=== PATIENT | female | born 1945 | race Caucasian/White ===

== ENCOUNTER → 2017-08-31 16:52 | Outpatient (REF) | payer MEDICARE, SELFPAY | LOC: LAB 16:52 | PROVIDERS: Visit Provider Nurse Practitioner Family | DX: N39.0 Urinary tract infection, site not specified (principal); R35.0 Frequency of micturition | CPT/HCPCS: 87086; 87088; 87186 ==

== ENCOUNTER → 2018-03-25 08:33 | Outpatient (REF) | payer MEDICARE, SELFPAY ==
[2018-03-25 14:30] LABS: Alanine Aminotransferase 46 U/L (12-78); Albumin Level 4.1 gm/dL (3.4-5.0); Albumin/Globulin Ratio 1.4 (1.1-1.8); Alkaline Phosphatase 96 U/L (46-116); Anion Gap 18.7 mEq/L (5-15); Aspartate Amino Transferase 31 U/L (15-37); Bilirubin,Total 0.8 mg/dL (0.2-1.0); Blood Urea Nitrogen 17 mg/dL (7-18); Carbon Dioxide 24 mmol/L (21.0-32.0); Chloride 102 mmol/L (98-107); Creatinine,Serum 1.15 mg/dL (0.55-1.02); Estimated Glomerular Filt Rate 46 ml/min (>60); GFR (African American) 56 ML/MIN (>60); Globulin 2.9 gm/dl (1.3-3.2); Glucose 219 mg/dL (74-106); Potassium 4.7 mmoL/L (3.5-5.1); Sodium 140 mmol/L (136-145)
[2018-03-25 14:41] LABS: Cholesterol 186 mg/dL (140-200); HDL Cholesterol 47 mg/dL (29-89); LDL Cholesterol 101 mg/dL (0-130); Thyroid Stimulating Hormone 14.58 uIU/ml (0.358-3.740); Triglycerides 192 mg/dL (30-200); VLDL Cholesterol 38 mg/dL (0-40)
== END ==
LOC: LAB 08:33
PROVIDERS: Visit Provider Nurse Practitioner Family
DX: E11.9 Type 2 diabetes mellitus without complications (principal); E07.9 Disorder of thyroid, unspecified; E03.9 Hypothyroidism, unspecified; R30.0 Dysuria
CPT/HCPCS: 80053; 80061; 83036; 84443

== ENCOUNTER → 2018-06-08 13:16 | Outpatient (CLI) | payer MEDICARE, SELFPAY | PROVIDERS: PCP Nurse Practitioner Family; Visit Provider Nurse Practitioner Family | DX: R30.0 Dysuria (principal) | CPT/HCPCS: 87086; 87088; 87186 ==

== ENCOUNTER → 2018-10-21 13:36 | Outpatient (CLI) | payer MEDICARE, SELFPAY ==
[2018-10-21 13:50] LABS: Basophils # 0.1 K/mm3 (0-0.2); Eosinophils # 0.1 K/mm3 (0.0-0.4); Eosinophils % 1.5 % (0.1-12.0); Hematocrit 41.7 % (37.0-47.0); Hemoglobin 14.4 g/dL (12.2-16.2); Lymphocytes # 1.6 K/mm3 (0.7-4.5); Lymphocytes % 23.8 % (10-50); Mean Corpuscular HGB Conc 34.4 g/dL (31.8-35.4); Mean Corpuscular Volume 98.8 fl (81-99); Mean Platelet Volume 9.9 fl (7.4-10.4); Monocytes # 0.4 K/mm3 (0.1-1.0); Neutrophils # 4.6 K/mm3 (1.8-7.8); Neutrophils % 67.7 % (37.0-80.0); Platelet Count 323 K/mm3 (142-424); Red Blood Count 4.22 M/mm3 (4.20-5.40); Red Cell Distribution Width 13.4 % (11.5-17.5); White Blood Count 6.8 K/mm3 (4.8-10.8)
[2018-10-21 14:20] LABS: Alanine Aminotransferase 35 U/L (12-78); Albumin Level 3.7 gm/dL (3.4-5.0); Albumin/Globulin Ratio 1.1 (1.1-1.8); Alkaline Phosphatase 110 U/L (46-116); Anion Gap 15.8 mEq/L (5-15); Aspartate Amino Transferase 29 U/L (15-37); Bilirubin,Total 0.9 mg/dL (0.2-1.0); Blood Urea Nitrogen 18 mg/dL (7-18); Calcium 9.5 mg/dL (8.5-10.1); Carbon Dioxide 27 mmol/L (21.0-32.0); Chloride 102 mmol/L (98-107); Chol/HDL Ratio 2.9 (1-3.5); Cholesterol 123 mg/dL (140-200); Creatinine,Serum 0.92 mg/dL (0.55-1.02); Estimated Glomerular Filt Rate 60 ml/min (>60); GFR (African American) 73 ML/MIN (>60); Globulin 3.3 gm/dl (1.3-3.2); Glucose 180 mg/dL (74-106); HDL Cholesterol 43 mg/dL (29-89); LDL Cholesterol 54 mg/dL (0-130); Potassium 4.8 mmoL/L (3.5-5.1); Sodium 140 mmol/L (136-145); T4 (Thyroxine) 7.6 ug/dl (4.7-13.3); Thyroid Stimulating Hormone 0.18 uIU/ml (0.358-3.740); Triglycerides 129 mg/dL (30-200); VLDL Cholesterol 26 mg/dL (0-40)
[2018-10-21 15:36] LABS: Hemoglobin A1C 8.7 % (0.0-7.0)
[2018-10-23 03:46] LABS: Microalbumin, Urine 35.1 ug/mL (Not Estab.)
== END ==
PROVIDERS: Visit Provider Physician Assistant
DX: E11.9 Type 2 diabetes mellitus without complications (principal); E03.9 Hypothyroidism, unspecified; N39.0 Urinary tract infection, site not specified; Z79.84 Long term (current) use of oral hypoglycemic drugs
CPT/HCPCS: 80053; 80061; 82043; 83036; 84436; 84443; 85025; 87086; 87088; 87186

== ENCOUNTER → 2018-11-12 13:27 | Outpatient (CLI) | payer MEDICARE, SELFPAY | PROVIDERS: Visit Provider Nurse Practitioner Family | DX: N39.0 Urinary tract infection, site not specified (principal) | CPT/HCPCS: 87086; 87088; 87186 ==

== ENCOUNTER → 2018-12-30 15:51 | Outpatient (CLI) | payer MEDICARE, SELFPAY ==
[2018-12-30 17:07] LABS: Alanine Aminotransferase 37 U/L (12-78); Albumin Level 3.8 gm/dL (3.4-5.0); Albumin/Globulin Ratio 1.3 (1.1-1.8); Alkaline Phosphatase 102 U/L (46-116); Anion Gap 14.9 mEq/L (5-15); Aspartate Amino Transferase 21 U/L (15-37); Blood Urea Nitrogen 13 mg/dL (7-18); Calcium 9.2 mg/dL (8.5-10.1); Carbon Dioxide 27 mmol/L (21.0-32.0); Chloride 104 mmol/L (98-107); Creatinine,Serum 0.94 mg/dL (0.55-1.02); Estimated Glomerular Filt Rate 59 ml/min (>60); Free T4 (Free Thyroxine) 0.85 ng/dl (0.76-1.46); GFR (African American) 71 ML/MIN (>60); Globulin 2.9 gm/dl (1.3-3.2); Glucose 137 mg/dL (74-106); Potassium 4.9 mmoL/L (3.5-5.1); Sodium 141 mmol/L (136-145); Thyroid Stimulating Hormone 0.31 uIU/ml (0.358-3.740); Total Protein,Serum 6.7 gm/dL (6.4-8.2)
== END ==
PROVIDERS: Visit Provider Physician Assistant
DX: E03.9 Hypothyroidism, unspecified (principal); E11.65 Type 2 diabetes mellitus with hyperglycemia; Z79.84 Long term (current) use of oral hypoglycemic drugs
CPT/HCPCS: 80053; 83036; 84439; 84443

== ENCOUNTER → 2019-01-25 10:29 | Outpatient (CLI) | payer MEDICARE, BC, SELFPAY ==
--- NOTE | 2019-01-25 10:32 | CI_ITS ---
Cerebrovascular Exam Indications: 785.9 Bruit. IMPRESSIONS 1. The right vertebral artery is patent with normal antegrade flow. 2. Study suggests 20-49% stenosis involving the right internal carotid artery. 3. Study suggests 70-99% stenosis involving the right external carotid artery. 4. Study suggests 20-49% stenosis involving the left internal carotid artery. 5. Depressed left vertebral waveform. History: A bruit of the left carotid artery. A bruit of the right carotid artery. Risk factors: Hypertension. Diabetes mellitus. 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 She states they "went in and surgical removed it." There is a scar present on the right side of her neck. Carotid duplex study. Complete study and Doppler flow study including spectral analysis, color and berumen scale imaging. Location: Vascular laboratory. Patient status: Outpatient. Tables: Arterial flow: + +--------+--------+ Location V sys V ed + +--------+--------+ Right CCA - proximal 74.4cm/s 10.5cm/s + +--------+--------+ Right CCA - distal 66.7cm/s 13.2cm/s + +--------+--------+ Right ECA 360cm/s -------- + +--------+--------+ Right ICA - proximal 87.7cm/s 24.3cm/s + +--------+--------+ Right ICA - mid 83.8cm/s 19.3cm/s + +--------+--------+ Right ICA - distal 68.9cm/s 18.7cm/s + +--------+--------+ Right vertebral 76.7cm/s -------- + +--------+--------+ Left CCA - proximal 81.1cm/s 14.9cm/s + +--------+--------+ Left CCA - distal 95.9cm/s 13.8cm/s + +--------+--------+ Left ECA 155cm/s -------- + +--------+--------+ Left ICA - proximal 106cm/s 25.3cm/s + +--------+--------+ Left ICA - mid 90.8cm/s 25.3cm/s + +--------+--------+ Left ICA - distal 98.2cm/s 26.7cm/s + +--------+--------+ Left vertebral 32.9cm/s -------- + +--------+--------+ Velocity ratios: + + + + + + Right, V sys Right, V ed Left, V sys Left, V ed + + + + + + Max ICA/dist CCA 1.31 1.84 1.11 1.93 + + + + + + (Report amended ) Electronically signed by: Tony Cantor [id number]
== END ==
PROVIDERS: PCP Emergency Medicine; Visit Provider Emergency Medicine
DX: R09.89 Other specified symptoms and signs involving the circulatory and respiratory systems (principal)
CPT/HCPCS: 93880

== ENCOUNTER → 2019-06-16 13:21 | Outpatient (CLI) | payer MEDICARE, BC, SELFPAY ==
[2019-06-16 13:33] LABS: Basophils # 0.1 K/mm3 (0-0.2); Basophils % 1.1 % (0.1-2.0); Eosinophils # 0.1 K/mm3 (0.0-0.4); Eosinophils % 1.3 % (0.1-12.0); Hematocrit 42.1 % (37.0-47.0); Hemoglobin 14.4 g/dL (12.2-16.2); Lymphocytes # 1.6 K/mm3 (0.7-4.5); Lymphocytes % 26.8 % (10-50); Mean Corpuscular HGB Conc 34.2 g/dL (31.8-35.4); Mean Corpuscular Volume 99.3 fl (81-99); Monocytes # 0.4 K/mm3 (0.1-1.0); Monocytes % 5.9 % (1.7-9.3); Platelet Count 329 K/mm3 (142-424); Red Blood Count 4.25 M/mm3 (4.20-5.40); Red Cell Distribution Width 12.4 % (11.5-17.5); White Blood Count 6.1 K/mm3 (4.8-10.8)
[2019-06-16 13:49] LABS: Alanine Aminotransferase 47 U/L (12-78); Albumin Level 3.8 gm/dL (3.4-5.0); Albumin/Globulin Ratio 1.4 (1.1-1.8); Alkaline Phosphatase 97 U/L (46-116); Anion Gap 14.4 mEq/L (5-15); Aspartate Amino Transferase 32 U/L (15-37); Bilirubin,Total 1.1 mg/dL (0.2-1.0); Blood Urea Nitrogen 20 mg/dL (7-18); Calcium 9.2 mg/dL (8.5-10.1); Carbon Dioxide 26 mmol/L (21.0-32.0); Chloride 102 mmol/L (98-107); Chol/HDL Ratio 2.8 (1-3.5); Cholesterol 116 mg/dL (140-200); Creatinine,Serum 0.92 mg/dL (0.55-1.02); Estimated Glomerular Filt Rate 60 ml/min (>60); GFR (African American) 72 ML/MIN (>60); Globulin 2.8 gm/dl (1.3-3.2); Glucose 146 mg/dL (74-106); HDL Cholesterol 41 mg/dL (29-89); LDL Cholesterol 48 mg/dL (0-130); Potassium 4.4 mmoL/L (3.5-5.1); Sodium 138 mmol/L (136-145); T4 (Thyroxine) 8.9 ug/dl (4.7-13.3); Thyroid Stimulating Hormone 0.17 uIU/ml (0.358-3.740); Total Protein,Serum 6.6 gm/dL (6.4-8.2); Triglycerides 135 mg/dL (30-200); VLDL Cholesterol 27 mg/dL (0-40)
[2019-06-16 14:23] LABS: Hemoglobin A1C 7.7 % (0.0-7.0)
[2019-06-17 08:31] LABS: Vitamin D 25 Hydroxy 51.8 ng/mL (30.0-100.0)
== END ==
PROVIDERS: Visit Provider Physician Assistant
DX: E11.9 Type 2 diabetes mellitus without complications (principal); N39.0 Urinary tract infection, site not specified; R30.0 Dysuria; Z79.84 Long term (current) use of oral hypoglycemic drugs
CPT/HCPCS: 80053; 80061; 82652; 83036; 84436; 84443; 85025; 87086

== ENCOUNTER → 2019-06-24 13:41 | Outpatient (CLI) | payer MEDICARE, BC, SELFPAY | PROVIDERS: Visit Provider Physician Assistant | DX: R30.0 Dysuria (principal) | CPT/HCPCS: 87086 ==

== ENCOUNTER → 2019-09-07 16:55 | Outpatient (CLI) | payer MEDICARE, BC, SELFPAY | PROVIDERS: Visit Provider Physician Assistant | DX: R30.0 Dysuria (principal) | CPT/HCPCS: 87086 ==

== ENCOUNTER → 2020-05-07 13:36 | Outpatient (CLI) | payer MEDICARE, BC, SELFPAY ==
[2020-05-07 13:57] LABS: Basophils # 0.1 K/mm3 (0-0.2); Basophils % 1.5 % (0.1-2.0); Eosinophils # 0.1 K/mm3 (0.0-0.4); Eosinophils % 1.5 % (0.1-12.0); Hematocrit 42.9 % (37.0-47.0); Lymphocytes % 28.8 % (10-50); Mean Corpuscular HGB Conc 32.6 g/dL (31.8-35.4); Mean Corpuscular Hemoglobin 33.2 pg (27.0-31.2); Mean Corpuscular Volume 101.9 fl (81-99); Mean Platelet Volume 9.7 fl (7.4-10.4); Monocytes # 0.4 K/mm3 (0.1-1.0); Monocytes % 6.1 % (1.7-9.3); Neutrophils # 4.4 K/mm3 (1.8-7.8); Neutrophils % 62.2 % (37.0-80.0); Platelet Count 325 K/mm3 (142-424); Red Blood Count 4.21 M/mm3 (4.20-5.40); Red Cell Distribution Width 12.7 % (11.5-17.5)
[2020-05-07 14:12] LABS: Microalbumin < 6.000 mg/L (0-16.7)
[2020-05-07 14:23] LABS: Chloride 100 mmol/L (98-107); Potassium 4.8 mmoL/L (3.5-5.1); Sodium 137 mmol/L (136-145)
[2020-05-07 14:25] LABS: Blood Urea Nitrogen 17 mg/dl (7-17); Estimated Glomerular Filt Rate 54 ml/min (>60); GFR (African American) 66 ML/MIN (>60)
[2020-05-07 14:26] LABS: Alanine Aminotransferase 25 U/L (12-78); Albumin Level 3.8 g/dl (3.5-5.0); Albumin/Globulin Ratio 1.5 (1.1-1.8); Alkaline Phosphatase 75 U/L (38-126); Anion Gap 12.8 mEq/L (5-15); Aspartate Amino Transferase 33 U/L (14-36); Bilirubin,Total 1.1 mg/dl (0.2-1.3); Calcium 9.6 mg/dl (8.4-10.2); Carbon Dioxide 29 mmol/L (22.0-30.0); Chol/HDL Ratio 2.6 (1-3.5); Cholesterol 119 mg/dl (140-200); Globulin 2.6 g/dL (1.3-3.2); Glucose 138 mg/dl (74-100); HDL Cholesterol 46 mg/dl (40-60); Total Protein,Serum 6.4 g/dl (6.3-8.2); Triglycerides 102 mg/dl (30-150); VLDL Cholesterol 20 mg/dL (0-40)
[2020-05-07 14:38] LABS: Direct LDL Cholesterol 61.75 mg/dL (100-129)
[2020-05-07 14:45] LABS: 25-OH Vitamin D, Total 63.9 ng/mL (30-100)
[2020-05-07 14:48] LABS: Hemoglobin A1C 7.6 % (4.0-6.0)
[2020-05-07 14:50] LABS: Thyroid Stimulating Hormone 0.94 uIU/mL (0.465-4.68)
== END ==
PROVIDERS: Visit Provider Physician Assistant
DX: E03.9 Hypothyroidism, unspecified (principal); E11.9 Type 2 diabetes mellitus without complications; N39.0 Urinary tract infection, site not specified; E55.9 Vitamin D deficiency, unspecified
CPT/HCPCS: 80053; 80061; 82043; 82306; 83036; 84436; 84443; 85025; 87086; 87088; 87186

== ENCOUNTER → 2020-09-04 14:34 | Outpatient (CLI) | payer MEDICARE, BC, SELFPAY | PROVIDERS: Visit Provider Physician Assistant | DX: R30.0 Dysuria (principal) | CPT/HCPCS: 87086; 87088; 87186 ==

== ENCOUNTER → 2020-12-31 13:37 | Outpatient (CLI) | payer MEDICARE, BC, SELFPAY ==
[2020-12-31 13:51] LABS: Basophils # 0.1 K/mm3 (0-0.2); Basophils % 1.2 % (0.1-2.0); Eosinophils # 0.1 K/mm3 (0.0-0.4); Eosinophils % 1.7 % (0.1-12.0); Hematocrit 40.7 % (37.0-47.0); Lymphocytes # 1.8 K/mm3 (0.7-4.5); Lymphocytes % 25.7 % (10-50); Mean Corpuscular HGB Conc 34.2 g/dL (31.8-35.4); Mean Corpuscular Hemoglobin 34.1 pg (27.0-31.2); Mean Corpuscular Volume 99.5 fl (81-99); Monocytes # 0.5 K/mm3 (0.1-1.0); Monocytes % 6.5 % (1.7-9.3); Neutrophils # 4.6 K/mm3 (1.8-7.8); Neutrophils % 64.8 % (37.0-80.0); Platelet Count 330 K/mm3 (142-424); Red Cell Distribution Width 13.4 % (11.5-17.5)
[2020-12-31 13:55] LABS: Alanine Aminotransferase 29 U/L (12-78); Albumin Level 4.2 g/dl (3.5-5.0); Albumin/Globulin Ratio 1.8 (1.1-1.8); Alkaline Phosphatase 78 U/L (38-126); Anion Gap 10.7 mEq/L (5-15); Aspartate Amino Transferase 34 U/L (14-36); Blood Urea Nitrogen 24 mg/dl (7-17); Calcium 8.9 mg/dl (8.4-10.2); Carbon Dioxide 27 mmol/L (22.0-30.0); Chloride 104 mmol/L (98-107); Chol/HDL Ratio 3.3 (1-3.5); Cholesterol 137 mg/dl (140-200); Estimated Glomerular Filt Rate 54 ml/min (>60); GFR (African American) 66 ML/MIN (>60); Globulin 2.4 g/dL (1.3-3.2); Glucose 171 mg/dl (74-100); HDL Cholesterol 42 mg/dl (40-60); Potassium 4.7 mmoL/L (3.5-5.1); Sodium 137 mmol/L (136-145); Total Protein,Serum 6.6 g/dl (6.3-8.2); Triglycerides 152 mg/dl (30-150); VLDL Cholesterol 30 mg/dL (0-40)
[2020-12-31 14:06] LABS: Direct LDL Cholesterol 65.35 mg/dL (100-129)
[2020-12-31 14:08] LABS: 25-OH Vitamin D, Total 50.6 ng/mL (30-100)
[2020-12-31 14:10] LABS: T4 (Thyroxine) 5.7 ug/dl (5.53-11.0)
[2020-12-31 14:15] LABS: Hemoglobin A1C 8.2 % (4.0-6.0)
[2020-12-31 14:24] LABS: Thyroid Stimulating Hormone 4.94 uIU/mL (0.465-4.68)
[2020-12-31 14:42] LABS: Vitamin B12 628 pg/mL (239-931)
[2020-12-31 15:45] LABS: Creatinine,Urine Random 130 mg/dL (Not Estab.); Microalbumin/Creatinine Ratio 4.7
== END ==
PROVIDERS: Visit Provider Physician Assistant
DX: E03.9 Hypothyroidism, unspecified (principal); E11.9 Type 2 diabetes mellitus without complications; E55.9 Vitamin D deficiency, unspecified; R53.83 Other fatigue; R30.0 Dysuria; Z79.84 Long term (current) use of oral hypoglycemic drugs
CPT/HCPCS: 80053; 80061; 82043; 82306; 82570; 82607; 83036; 84436; 84443; 85025

== ENCOUNTER → 2021-09-04 17:43 | Outpatient (CLI) | payer MEDICARE, BC, SELFPAY | PROVIDERS: Visit Provider Physician Assistant | DX: N39.0 Urinary tract infection, site not specified (principal) | CPT/HCPCS: 87086 ==

== ENCOUNTER → 2021-10-23 15:42 | Outpatient (CLI) | payer MEDICARE, BC, SELFPAY ==
[2021-10-23 14:18] LABS: Basophils # 0.1 K/mm3 (0-0.2); Basophils % 1.4 % (0.1-2.0); Eosinophils # 0.1 K/mm3 (0.0-0.4); Hematocrit 43.3 % (37.0-47.0); Hemoglobin 14.3 g/dL (12.2-16.2); Lymphocytes # 1.5 K/mm3 (0.7-4.5); Lymphocytes % 26.4 % (10-50); Mean Corpuscular Hemoglobin 33.6 pg (27.0-31.2); Mean Corpuscular Volume 101.7 fl (81-99); Mean Platelet Volume 10.6 fl (7.4-10.4); Monocytes # 0.3 K/mm3 (0.1-1.0); Monocytes % 6.1 % (1.7-9.3); Neutrophils # 3.6 K/mm3 (1.8-7.8); Neutrophils % 64.1 % (37.0-80.0); Platelet Count 344 K/mm3 (142-424); Red Blood Count 4.26 M/mm3 (4.20-5.40); Red Cell Distribution Width 12.8 % (11.5-17.5); White Blood Count 5.6 K/mm3 (4.8-10.8)
[2021-10-23 15:03] LABS: Chloride 105 mmol/L (98-107)
[2021-10-23 15:04] LABS: Potassium 4.7 mmoL/L (3.5-5.1); Sodium 139 mmol/L (136-145)
[2021-10-23 15:06] LABS: Alanine Aminotransferase 30 U/L (12-78); Aspartate Amino Transferase 31 U/L (14-36); Blood Urea Nitrogen 19 mg/dl (7-17); Estimated Glomerular Filt Rate 54 ml/min (>60); GFR (African American) 65 ML/MIN (>60)
[2021-10-23 15:07] LABS: Albumin Level 4.1 g/dl (3.5-5.0); Albumin/Globulin Ratio 1.8 (1.1-1.8); Alkaline Phosphatase 84 U/L (38-126); Anion Gap 12.7 mEq/L (5-15); Bilirubin,Total 0.8 mg/dl (0.2-1.3); Calcium 8.1 mg/dl (8.4-10.2); Carbon Dioxide 26 mmol/L (22.0-30.0); Globulin 2.3 g/dL (1.3-3.2); Glucose 174 mg/dl (74-100); Total Protein,Serum 6.4 g/dl (6.3-8.2)
[2021-10-23 15:38] LABS: Thyroid Stimulating Hormone < 0.02 uIU/mL (0.465-4.68)
[2021-10-23 18:51] LABS: Hemoglobin A1C 9.7 % (4.0-6.0)
[2021-10-24 11:51] LABS: Intact Parathyroid Hormone 132.3 pg/mL (7.5-53.5)
== END ==
PROVIDERS: Visit Provider Physician Assistant
DX: E11.9 Type 2 diabetes mellitus without complications (principal); R53.1 Weakness; E55.9 Vitamin D deficiency, unspecified; Z00.00 Encounter for general adult medical examination without abnormal findings; N39.0 Urinary tract infection, site not specified; R79.89 Other specified abnormal findings of blood chemistry; Z79.4 Long term (current) use of insulin
CPT/HCPCS: 80053; 82306; 83036; 83970; 84443; 85025; 87086

== ENCOUNTER → 2021-11-06 08:44 | Outpatient (CLI) | payer MEDICARE, BC, SELFPAY ==
--- NOTE | 2021-11-06 08:49 | XR_ITS ---
FINAL REPORT TECHNIQUE: Bone mineral density was calculated of the lumbar spine and hip. CLINICAL HISTORY: post menopausal FINDINGS: Using L1-4, the bone mineral density of the spine is 1.075 g/cm2, corresponding to T-score of 0.3. Using the left hip, the bone mineral density of the femoral neck is 0.611 g/cm2, corresponding to a T-score of -2.1. NOTE: T-score: Standard deviation compared with peak bone mass of young adult mean. *Following the recommendations of the International Society of Bone densitometry, classification of hip BMD is based on the lower of two T-scores; total hip or femoral neck. IMPRESSION: Diminished bone mineral density of the left hip consistent with osteopenia. FRAX 10 year fracture risk is 14% for major osteoporotic fracture. Normal bone mineral density of the lumbar spine. Reviewed, Interpreted and Dictated by Jose Nogueira III, MD Transcribed by Briana Sandhu Authenticated by Jose Nogueira III, MD on 11/06/2021 10:45:14 AM [facility]
== END ==
PROVIDERS: PCP Physician Assistant; Visit Provider Physician Assistant
DX: Z78.0 Asymptomatic menopausal state (principal)
CPT/HCPCS: 77080

== ENCOUNTER → 2021-12-26 09:56 | Outpatient (CLI) | payer MEDICARE, BC, SELFPAY ==
--- NOTE | 2021-12-26 10:02 | XR_ITS ---
FINAL REPORT CLINICAL HISTORY: left elbow pain FINDINGS: LEFT ELBOW 3 views were obtained. There is no acute fracture or dislocation. There is no joint effusion. There are mild degenerative changes. There are chronic calcifications adjacent to the medial and lateral humeral epicondyles. IMPRESSION: Mild degenerative change. Reviewed, Interpreted and Dictated by Jose Nogueira III, MD Transcribed by Yaron Do Authenticated by Jose Nogueira III, MD on 12/26/2021 10:58:[address] [facility]
--- NOTE | 2021-12-26 10:02 | XR_ITS ---
FINAL REPORT CLINICAL HISTORY: right forearm pain FINDINGS: RIGHT FOREARM Two views were obtained. There is a chronic fracture of the ulnar styloid process. There is no acute fracture or dislocation. There are mild degenerative changes of the wrist and elbow. There are chronic calcifications adjacent to the medial and lateral humeral epicondyles. IMPRESSION: Mild degenerative change. Reviewed, Interpreted and Dictated by Jose Nogueira III, MD Transcribed by Yaron Do Authenticated by Jose Nogueira III, MD on 12/26/2021 10:58:32 AM [facility]
--- NOTE | 2021-12-26 10:02 | XR_ITS ---
FINAL REPORT CLINICAL HISTORY: left forearm pain FINDINGS: LEFT FOREARM Two views were obtained. There is no acute fracture or dislocation. There are mild degenerative changes of the wrist and elbow. There are chronic calcifications adjacent to the medial and lateral humeral epicondyles. IMPRESSION: Mild degenerative change. Reviewed, Interpreted and Dictated by Jose Nogueira III, MD Transcribed by Yaron Do Authenticated by Jose Nogueira III, MD on 12/26/2021 10:58:[address] [facility]
--- NOTE | 2021-12-26 10:02 | XR_ITS ---
FINAL REPORT CLINICAL HISTORY: right elbow pain FINDINGS: RIGHT ELBOW 3 views were obtained. There is no acute fracture or dislocation. There is no joint effusion. There are mild degenerative changes. There are chronic calcifications adjacent to the medial and lateral humeral epicondyles. IMPRESSION: Mild degenerative change. Reviewed, Interpreted and Dictated by Jose Nogueira III, MD Transcribed by Yaron Do Authenticated by Jose Nogueira III, MD on 12/26/2021 10:58:30 AM [facility]
== END ==
PROVIDERS: PCP Physician Assistant; Visit Provider Physician Assistant
DX: M25.521 Pain in right elbow (principal); M25.522 Pain in left elbow; Z91.81 History of falling; M79.631 Pain in right forearm; M79.632 Pain in left forearm
CPT/HCPCS: 73080; 73090

== ENCOUNTER → 2022-02-25 20:51 | Outpatient (CLI) | payer MEDICARE, BC, SELFPAY ==
[2022-02-25 15:50] LABS: Basophils # 0.1 K/mm3 (0-0.2); Basophils % 1.3 % (0.1-2.0); Eosinophils # 0.2 K/mm3 (0.0-0.4); Eosinophils % 2.4 % (0.1-12.0); Hematocrit 38.7 % (37.0-47.0); Hemoglobin 13.3 g/dL (12.2-16.2); Lymphocytes # 1.7 K/mm3 (0.7-4.5); Lymphocytes % 22.5 % (10-50); Mean Corpuscular HGB Conc 34.3 g/dL (31.8-35.4); Mean Corpuscular Volume 99.1 fl (81-99); Mean Platelet Volume 10.3 fl (7.4-10.4); Monocytes # 0.7 K/mm3 (0.1-1.0); Monocytes % 9.4 % (1.7-9.3); Neutrophils # 4.8 K/mm3 (1.8-7.8); Neutrophils % 64.5 % (37.0-80.0); Platelet Count 359 K/mm3 (142-424); Red Cell Distribution Width 13.4 % (11.5-17.5); White Blood Count 7.5 K/mm3 (4.8-10.8)
[2022-02-25 15:56] LABS: Alanine Aminotransferase 21 U/L (12-78); Albumin Level 3.8 g/dl (3.5-5.0); Albumin/Globulin Ratio 1.4 (1.1-1.8); Alkaline Phosphatase 93 U/L (38-126); Anion Gap 10.4 mEq/L (5-15); Aspartate Amino Transferase 31 U/L (14-36); Blood Urea Nitrogen 17 mg/dl (7-17); Calcium 8.8 mg/dl (8.4-10.2); Carbon Dioxide 27 mmol/L (22.0-30.0); Chloride 106 mmol/L (98-107); Chol/HDL Ratio 4.9 (1-3.5); Cholesterol 132 mg/dl (140-200); Estimated Glomerular Filt Rate 61 ml/min (>60); GFR (African American) 74 ML/MIN (>60); Globulin 2.7 g/dL (1.3-3.2); Glucose 150 mg/dl (74-100); HDL Cholesterol 27 mg/dl (40-60); Potassium 4.4 mmoL/L (3.5-5.1); Sodium 139 mmol/L (136-145); Total Protein,Serum 6.5 g/dl (6.3-8.2); Triglycerides 146 mg/dl (30-150); VLDL Cholesterol 29 mg/dL (0-40)
[2022-02-25 16:08] LABS: Direct LDL Cholesterol 75.29 mg/dL (100-129)
[2022-02-25 16:14] LABS: 25-OH Vitamin D, Total 58.7 ng/mL (30-100)
[2022-02-25 16:27] LABS: Thyroid Stimulating Hormone 0.59 uIU/mL (0.465-4.68)
[2022-02-25 16:46] LABS: Vitamin B12 706 pg/mL (239-931)
[2022-02-25 17:03] LABS: Hemoglobin A1C 7.5 % (4.0-6.0)
== END ==
PROVIDERS: PCP Physician Assistant; Visit Provider Physician Assistant
DX: R30.0 Dysuria (principal); M85.80 Other specified disorders of bone density and structure, unspecified site; I10 Essential (primary) hypertension; I25.10 Atherosclerotic heart disease of native coronary artery without angina pectoris; Z00.00 Encounter for general adult medical examination without abnormal findings; E11.9 Type 2 diabetes mellitus without complications; Z79.4 Long term (current) use of insulin
CPT/HCPCS: 80053; 80061; 82306; 82607; 83036; 84443; 85025; 87086

== ENCOUNTER → 2022-05-06 13:12 | Outpatient (CLI) | payer MEDICARE, BC, SELFPAY ==
--- NOTE | 2022-05-06 13:27 | XR_ITS ---
FINAL REPORT CLINICAL HISTORY: left knee pain FINDINGS: Left knee Three views were obtained. There is no acute fracture or dislocation. Minimal degenerative change of the medial compartment. Mild patellofemoral joint disease. There is no acute soft tissue abnormality. IMPRESSION: Degenerative changes. No acute bony abnormality. Reviewed, Interpreted and Dictated by Blank Chakraborty MD Transcribed by Yaron Do Authenticated and [facility]
[2022-05-07 16:16] LABS: Basophils # 0.1 K/mm3 (0-0.2); Basophils % 1.3 % (0.1-2.0); Eosinophils # 0.1 K/mm3 (0.0-0.4); Eosinophils % 2.1 % (0.1-12.0); Hematocrit 45.9 % (37.0-47.0); Hemoglobin 14.9 g/dL (12.2-16.2); Lymphocytes # 1.7 K/mm3 (0.7-4.5); Lymphocytes % 24.6 % (10-50); Mean Corpuscular HGB Conc 32.5 g/dL (31.8-35.4); Mean Corpuscular Hemoglobin 33.2 pg (27.0-31.2); Mean Corpuscular Volume 102.1 fl (81-99); Mean Platelet Volume 10.8 fl (7.4-10.4); Monocytes # 0.5 K/mm3 (0.1-1.0); Monocytes % 7.1 % (1.7-9.3); Neutrophils # 4.4 K/mm3 (1.8-7.8); Platelet Count 465 K/mm3 (142-424); Red Cell Distribution Width 13.1 % (11.5-17.5); White Blood Count 6.8 K/mm3 (4.8-10.8)
[2022-05-07 16:21] LABS: Alanine Aminotransferase 19 U/L (12-78); Albumin Level 3.9 g/dl (3.5-5.0); Albumin/Globulin Ratio 1.6 (1.1-1.8); Alkaline Phosphatase 85 U/L (38-126); Aspartate Amino Transferase 29 U/L (14-36); Bilirubin,Total 0.5 mg/dl (0.2-1.3); Blood Urea Nitrogen 22 mg/dl (7-17); Calcium 7.9 mg/dl (8.4-10.2); Carbon Dioxide 27 mmol/L (22.0-30.0); Chloride 99 mmol/L (98-107); Chol/HDL Ratio 3.7 (1-3.5); Cholesterol 97 mg/dl (140-200); Estimated Glomerular Filt Rate 54 ml/min (>60); GFR (African American) 65 ML/MIN (>60); Globulin 2.4 g/dL (1.3-3.2); Glucose 216 mg/dl (74-100); HDL Cholesterol 26 mg/dl (40-60); Magnesium 1.4 mg/dl (1.6-2.3); Phosphorous 2.4 mg/dl (2.5-4.5); Sodium 137 mmol/L (136-145); Total Protein,Serum 6.3 g/dl (6.3-8.2); Triglycerides 153 mg/dl (30-150); VLDL Cholesterol 31 mg/dL (0-40)
[2022-05-07 16:32] LABS: Direct LDL Cholesterol 47.62 mg/dL (100-129); Intact Parathyroid Hormone 99.4 pg/mL (7.5-53.5)
[2022-05-07 16:38] LABS: 25-OH Vitamin D, Total 65.1 ng/mL (30-100)
[2022-05-07 16:50] LABS: Thyroid Stimulating Hormone 0.95 uIU/mL (0.465-4.68)
== END ==
PROVIDERS: PCP Nurse Practitioner Family; Visit Provider Physician Assistant
DX: E03.9 Hypothyroidism, unspecified (principal); E34.9 Endocrine disorder, unspecified; I10 Essential (primary) hypertension; N39.0 Urinary tract infection, site not specified; M25.562 Pain in left knee; E11.65 Type 2 diabetes mellitus with hyperglycemia; M85.89 Other specified disorders of bone density and structure, multiple sites; B96.1 Klebsiella pneumoniae [K. pneumoniae] as the cause of diseases classified elsewhere
CPT/HCPCS: 73562; 80053; 80061; 82306; 83735; 83970; 84100; 84443; 85025; 87086; 87088; 87186

== ENCOUNTER → 2022-05-07 11:35 | Outpatient (CLI) | payer MEDICARE, BC, SELFPAY | PROVIDERS: PCP Physician Assistant; Visit Provider Physician Assistant | DX: D72.810 Lymphocytopenia (principal) ==

== ENCOUNTER → 2022-05-08 11:33 | Outpatient (CLI) | payer MEDICARE, BC, SELFPAY ==
--- NOTE | 2022-05-08 12:55 | XR_ITS ---
FINAL REPORT TECHNIQUE: 1 view CLINICAL HISTORY: Hyperparathyroidism FINDINGS: ABDOMEN SINGLE VIEW There is a normal bowel gas pattern. No bowel dilation is identified. No abnormal calcification is seen. The patient is status post cholecystectomy. IMPRESSION: No acute process. Reviewed, Interpreted and Dictated by Blank Chakraborty MD Transcribed by Dana Garcia Authenticated and [facility]
--- NOTE | 2022-05-08 12:55 | XR_ITS ---
FINAL REPORT TECHNIQUE: 3 views CLINICAL HISTORY: back pain FINDINGS: There is no fracture present. There is no malalignment. There is mild diffuse degenerative disc disease. Mild diffuse spurring is identified. There is thoracic kyphosis. IMPRESSION: Degenerative changes without acute process. Reviewed, Interpreted and Dictated by Blank Chakraborty MD Transcribed by Dana Garcia Authenticated and [facility]
--- NOTE | 2022-05-08 12:55 | XR_ITS ---
FINAL REPORT TECHNIQUE: 3 views CLINICAL HISTORY: back pain FINDINGS: There is no fracture present. There is no malalignment. There is moderate diffuse degenerative disc disease with endplate spurring. Note is made of facet arthropathy. IMPRESSION: Degenerative changes without acute process. Reviewed, Interpreted and Dictated by Blank Chakraborty MD Transcribed by Dana Garcia Authenticated and [facility]
[2022-05-10 09:05] LABS: Peripheral Smear Review Scanned Result
== END ==
LOC: LAB.DROPOF 11:34 → RAD 12:41
PROVIDERS: PCP Physician Assistant; Visit Provider Physician Assistant
DX: E21.3 Hyperparathyroidism, unspecified (principal); M54.6 Pain in thoracic spine; M54.50 Low back pain, unspecified
CPT/HCPCS: 72072; 72100; 74018

== ENCOUNTER → 2022-05-10 09:11 | Outpatient (CLI) | payer MEDICARE, BC, SELFPAY ==
[2022-05-11 09:09] LABS: Calcium, Urine 0.8 mg/dL (Not Estab.); Calcium, Urine 24hr 8 mg/24 hr (0-320)
[2022-05-12 17:09] LABS: Calcium, Ionized 4.5 mg/dL (4.5-5.6)
== END ==
PROVIDERS: PCP Physician Assistant; Visit Provider Physician Assistant
DX: E03.9 Hypothyroidism, unspecified (principal); E34.9 Endocrine disorder, unspecified; E11.65 Type 2 diabetes mellitus with hyperglycemia
CPT/HCPCS: 36415; 82330; 82340

== ENCOUNTER → 2022-06-20 10:48 | Outpatient (CLI) | payer MEDICARE, BC, SELFPAY ==
--- NOTE | 2022-06-20 10:57 | MR_ITS ---
FINAL REPORT CLINICAL HISTORY: Left knee pain. POPPING IN KNEE. KNEE INSTABILITY. SENT OVER BEST IMAGES. FINDINGS: Multi planar MR imaging was performed of the right knee. The anterior and posterior cruciate ligaments are intact. The quadriceps and patellar tendons are intact. There is linear abnormal signal in the posterior horn of the medial meniscus extending to the margin consistent with a meniscal tear. The lateral meniscus is intact. The medial and lateral collateral ligaments appear intact. The medial and lateral retinacula appear intact. There is mild to moderate marrow edema in the medial tibial plateau. There is grade 1 chondromalacia along the undersurface of the patella. A popliteal cyst measures 6 cm in craniocaudal dimensions. IMPRESSION: Tear of the posterior horn of the medial meniscus. 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 6 cm popliteal cyst. Reviewed, Interpreted and Dictated by Newton Guthrie MD Transcribed by Yaron Do Authenticated and [facility]
== END ==
PROVIDERS: PCP Physician Assistant; Visit Provider Physician Assistant
DX: M25.562 Pain in left knee (principal)
CPT/HCPCS: 73721

== ENCOUNTER 2022-07-18 10:42 | Outpatient (RCR) | payer MEDICARE, BC, SELFPAY | END 2022-07-18 11:30 | disposition home or self-care (01) | LOC: PT 10:42 | PROVIDERS: Visit Provider Orthopaedic Surgery | DX: M25.562 Pain in left knee (principal); S80.912A Unspecified superficial injury of left knee, initial encounter | CPT/HCPCS: 97760 ==

== ENCOUNTER → 2022-11-25 14:28 | Outpatient (CLI) | payer MEDICARE, BC, SELFPAY ==
[2022-11-25 14:11] LABS: Alanine Aminotransferase 21 U/L (12-78); Albumin Level 4.2 g/dl (3.5-5.0); Albumin/Globulin Ratio 1.8 (1.1-1.8); Alkaline Phosphatase 78 U/L (38-126); Aspartate Amino Transferase 27 U/L (14-36); Blood Urea Nitrogen 19 mg/dl (7-17); Calcium 8.9 mg/dl (8.4-10.2); Carbon Dioxide 29 mmol/L (22.0-30.0); Chloride 100 mmol/L (98-107); Chol/HDL Ratio 3.8 (1-3.5); Cholesterol 153 mg/dl (140-200); Estimated Glomerular Filt Rate 61 ml/min (>60); GFR (African American) 74 ML/MIN (>60); Globulin 2.4 g/dL (1.3-3.2); Glucose 203 mg/dl (74-100); HDL Cholesterol 40 mg/dl (40-60); Sodium 137 mmol/L (136-145); Total Protein,Serum 6.6 g/dl (6.3-8.2); Triglycerides 192 mg/dl (30-150); VLDL Cholesterol 38 mg/dL (0-40)
[2022-11-25 14:15] LABS: Basophils # 0.1 K/mm3 (0-0.2); Eosinophils # 0.2 K/mm3 (0.0-0.4); Eosinophils % 2.2 % (0.1-12.0); Hematocrit 43.4 % (37.0-47.0); Lymphocytes # 1.5 K/mm3 (0.7-4.5); Mean Corpuscular HGB Conc 32.3 g/dL (31.8-35.4); Mean Corpuscular Volume 105.4 fl (81-99); Mean Platelet Volume 10.9 fl (7.4-10.4); Monocytes # 0.4 K/mm3 (0.1-1.0); Neutrophils # 4.6 K/mm3 (1.8-7.8); Neutrophils % 68.6 % (37.0-80.0); Platelet Count 364 K/mm3 (142-424); Red Blood Count 4.12 M/mm3 (4.20-5.40); Red Cell Distribution Width 13.2 % (11.5-17.5); White Blood Count 6.7 K/mm3 (4.8-10.8)
[2022-11-25 14:21] LABS: Direct LDL Cholesterol 80.14 mg/dL (100-129)
[2022-11-25 14:25] LABS: Hemoglobin A1C 8.7 % (4.0-6.0)
[2022-11-25 14:27] LABS: 25-OH Vitamin D, Total 35.3 ng/mL (30-100)
[2022-11-25 14:39] LABS: Thyroid Stimulating Hormone 2.12 uIU/mL (0.465-4.68)
== END ==
PROVIDERS: PCP Physician Assistant; Visit Provider Physician Assistant
DX: R53.83 Other fatigue (principal); N39.0 Urinary tract infection, site not specified; M85.80 Other specified disorders of bone density and structure, unspecified site; E11.65 Type 2 diabetes mellitus with hyperglycemia; B95.2 Enterococcus as the cause of diseases classified elsewhere; Z79.84 Long term (current) use of oral hypoglycemic drugs
CPT/HCPCS: 80053; 80061; 82306; 83036; 84443; 85025; 87086; 87088; 87186

== ENCOUNTER → 2023-01-16 15:21 | Outpatient (CLI) | payer MEDICARE, BC, SELFPAY ==
--- NOTE | 2023-01-16 15:22 | MR_ITS ---
FINAL REPORT TECHNIQUE: Multiplanar MR without contrast CLINICAL HISTORY: low back pain, incontinence FINDINGS: Sagittal images show normal vertebral height. There is mild retrolisthesis of L5 on S1, otherwise alignment is normal.. Marrow signal pattern is unremarkable. T12-L1: Unremarkable L1-2: Unremarkable L2-3: Mild annular bulge L3-4: Mild annular bulge and mild facet hypertrophy L4-5: Moderate annular bulge, moderate facet arthropathy, and mild central canal stenosis L5-S1: Mild annular bulge, bilateral moderate neural foraminal narrowing, and moderate facet arthropathy greater on the left than on the right. IMPRESSION: Degenerative change most prominent at the L4-5 and L5-S1 levels. Reviewed, Interpreted and Dictated by Blank Chakraborty MD Transcribed by Nury Palafox Authenticated and . [facility]
== END ==
PROVIDERS: PCP Physician Assistant; Visit Provider Physician Assistant
DX: M54.50 Low back pain, unspecified (principal); R15.9 Full incontinence of feces; R32 Unspecified urinary incontinence
CPT/HCPCS: 72148; 76376

== ENCOUNTER 2023-03-18 08:45 | Emergency (ER) | payer MEDICARE, BC, SELFPAY ==
[2023-03-18 08:45] VITALS: BP 157/73; PULSE 62; RESP 18; TEMP 36.7; O2SAT 98; BMI 29.2
[2023-03-18 09:03] LABS: Microscopic, Urine URINE MICROSCOPIC (MICROSCOPIC)
--- NOTE | 2023-03-18 09:03 | EXP.UTC ---
Discharge Plan Disposition Patient Disposition: Home, Self-Care Condition: Good Prescriptions Prescriptions: New triamcinolone acetonide 0.1 % cream 1 applic topical BID PRN (Reason: itching) Qty: 30 0RF methylprednisolone 4 mg Tablets,Dose Pack 4 mg PO DIRECTED Qty: 21 0RF No Action (DME) blood-glucose meter [Microdot Blood Glucose System] [facility] [place] Dose Instructions .ROUTE .MEDSUPPLY Qty: 1 Rx Instructions: As directed Cholestyramine Light 4 gram powder 4 g PO BID Qty: 239.4 2RF Rx Instructions: administer w/meal; avoid other meds within 1hr before or 4-6hr after dose aspirin [Adult Low Dose Aspirin] 81 mg tablet,delayed release (DR/EC) 81 mg PO QDAY Qty: 90 3RF fluticasone propionate [Flonase Allergy Relief] 50 mcg/actuation spray,suspension 50 mcg INTRANASAL QDAY PRN (Reason: allergy symptoms) Qty: 9.9 2RF isosorbide mononitrate 120 mg tablet extended release 24 hr PO nystatin [Nystop] 100,000 unit/gram powder See Rx Instructions .ROUTE .COMPLEX Qty: 60 3RF Dose Instruction: APPLY TOPICALLY 3 TIMES A DAY DIRECTED Rx Instructions: APPLY TOPICALLY 3 TIMES A DAY DIRECTED fexofenadine [Allergy Relief (fexofenadine)] 180 mg tablet 180 mg PO DAILY Qty: 30 2RF tramadol 50 mg tablet 50 mg PO BID PRN (Reason: hip pain) Qty: 60 1RF Linzess 72 mcg capsule 72 mcg PO DAILY Qty: 30 2RF alendronate [Fosamax] 70 mg tablet 70 mg PO WEEKLY Qty: 15 3RF Januvia 100 mg tablet 100 mg PO DAILY Qty: 90 3RF ergocalciferol (vitamin D2) 1,250 mcg (50,000 unit) capsule See Rx Instructions .ROUTE .COMPLEX Qty: 12 2RF Dose Instruction: TAKE ONE CAPSULE BY MOUTH EVERY WEEK Rx Instructions: TAKE ONE CAPSULE BY MOUTH EVERY WEEK losartan 50 mg tablet See Rx Instructions .ROUTE .COMPLEX Qty: 90 3RF Dose Instruction: TAKE ONE TABLET BY MOUTH ONCE A DAY Rx Instructions: TAKE ONE TABLET BY MOUTH ONCE A DAY glipizide 10 mg tablet extended release 24hr See Rx Instructions .ROUTE .COMPLEX Qty: 90 3RF Dose Instruction: TAKE ONE TABLET BY MOUTH ONCE A DAY Rx Instructions: TAKE ONE TABLET BY MOUTH ONCE A DAY nitroglycerin 0.4 mg tablet, sublingual See Rx Instructions .ROUTE .COMPLEX Qty: 25 3RF Dose Instruction: DISSOLVE 1 TAB UNDER TONGUE AT ONSET OF CHEST PAIN. REPEAT EVERY 5 MINUTES FOR 3 DOSES IF NEEDED. IF NO RELIEF CALL 911. Rx Instructions: DISSOLVE 1 TAB UNDER TONGUE AT ONSET OF CHEST PAIN. REPEAT EVERY 5 MINUTES FOR 3 DOSES IF NEEDED. IF NO RELIEF CALL 911. rosuvastatin 5 mg tablet See Rx Instructions .ROUTE .COMPLEX Qty: 90 0RF Dose Instruction: TAKE ONE TABLET BY MOUTH ONCE A DAY Rx Instructions: TAKE ONE TABLET BY MOUTH ONCE A DAY atenolol 50 mg tablet See Rx Instructions .ROUTE .COMPLEX Qty: 180 0RF Dose Instruction: TAKE ONE TABLET BY MOUTH 2 TIMES A DAY Rx Instructions: TAKE ONE TABLET BY MOUTH 2 TIMES A DAY thyroid (pork) [[employer] Thyroid] 90 mg tablet See Rx Instructions .ROUTE .COMPLEX Qty: 90 0RF Dose Instruction: TAKE ONE TABLET BY MOUTH ONCE A DAY Rx Instructions: TAKE ONE TABLET BY MOUTH ONCE A DAY Referrals Follow up/Referrals: Taylor Hernandez PA [Primary Care Provider] - See instructions Activity Restrictions/Add. Instructions Additional Instructions/Restrictions: Try to avoid contact with the offending substance (poison nury). Don't start the oral steroids until tomorrow. Don't put the topical steroids (triamcinolone) on your face or your groin. Follow up with your regular doctor. GO TO THE ER FOR ANY WORSENING SYMPTOMS OR CONCERNS Clinical Impressions Clinical Impression: Contact dermatitis Instructions Patient Instructions: DI for Contact Dermatitis, Contact Dermatitis, Triamcinolone Topical, Methylprednisolone Injection Discharge ED Provider: Hermilo Stokes
[2023-03-18 09:06] LABS: Appearance,Urine CLEAR (Clear); Bilirubin,Urine Negative (Negative); Blood, Urine Negative (Negative); Color,Urine YELLOW (Yellow); Glucose,Urine (UA) Negative (Negative); Ketones,Urine Negative (Negative); Leukocyte Esterase,Urine 1+ (Negative); Nitrate,Urine Negative (Negative); Protein,Urine Negative (Negative); Urobilinogen,Urine 0.2 EU/dl (0.2)
[2023-03-18 09:36] VITALS: BP 157/73; PULSE 62; RESP 18; TEMP 36.7; O2SAT 98
[2023-03-18 09:45] LABS: WBC,Urine 20-50 #/hpf (0-3)
[2023-03-18 09:46] LABS: Bacteria,Urine Trace /lpf; Squamous Epithelial Cell,Urine 20-50 #/hpf (0-5)
== END 2023-03-18 09:37 | disposition home or self-care (01) ==
PROVIDERS: Emergency Provider Nurse Practitioner Family; PCP Physician Assistant
DX: L23.7 Allergic contact dermatitis due to plants, except food (principal); I11.9 Hypertensive heart disease without heart failure; I25.10 Atherosclerotic heart disease of native coronary artery without angina pectoris; E11.9 Type 2 diabetes mellitus without complications; Z79.84 Long term (current) use of oral hypoglycemic drugs; Z87.891 Personal history of nicotine dependence; W60.XXXA Contact with nonvenomous plant thorns and spines and sharp leaves, initial encounter; B96.89 Other specified bacterial agents as the cause of diseases classified elsewhere; N39.0 Urinary tract infection, site not specified
CPT/HCPCS: 81001; 87086; 96372; 99204; 99212; G0463

== ENCOUNTER → 2023-04-01 12:00 | Outpatient (CLI) | payer MEDICARE, BC, SELFPAY | PROVIDERS: PCP Physician Assistant; Visit Provider Physician Assistant | DX: R21 Rash and other nonspecific skin eruption (principal) ==

== ENCOUNTER → 2023-04-01 23:36 | Outpatient (CLI) | payer MEDICARE, BC, SELFPAY ==
[2023-04-01 18:48] LABS: Hemoglobin A1C 8.4 % (4.0-6.0)
[2023-04-01 19:01] LABS: Microalbumin/Creatinine Ratio 25.3
[2023-04-01 19:02] LABS: Creatinine,Urine Random 80 mg/dL (Not Estab.)
[2023-04-01 19:16] LABS: Basophils % 0.9 % (0.1-2.0); Eosinophils # 0.2 K/mm3 (0.0-0.4); Eosinophils % 4.1 % (0.1-12.0); Hematocrit 41.7 % (37.0-47.0); Hemoglobin 13.7 g/dL (12.2-16.2); Lymphocytes % 26.5 % (10-50); Mean Corpuscular HGB Conc 32.9 g/dL (31.8-35.4); Mean Corpuscular Hemoglobin 34.7 pg (27.0-31.2); Mean Corpuscular Volume 105.5 fl (81-99); Mean Platelet Volume 11.4 fl (7.4-10.4); Monocytes # 0.3 K/mm3 (0.1-1.0); Neutrophils # 2.2 K/mm3 (1.8-7.8); Neutrophils % 59.5 % (37.0-80.0); Platelet Count 209 K/mm3 (142-424); Red Blood Count 3.96 M/mm3 (4.20-5.40); Red Cell Distribution Width 13.2 % (11.5-17.5); White Blood Count 3.7 K/mm3 (4.8-10.8)
[2023-04-01 19:19] LABS: Alanine Aminotransferase 46 U/L (12-78); Albumin Level 3.6 g/dl (3.5-5.0); Albumin/Globulin Ratio 1.4 (1.1-1.8); Alkaline Phosphatase 84 U/L (38-126); Anion Gap 13.5 mEq/L (5-15); Aspartate Amino Transferase 55 U/L (14-36); Bilirubin,Total 0.5 mg/dl (0.2-1.3); Blood Urea Nitrogen 22 mg/dl (7-17); Calcium 8.1 mg/dl (8.4-10.2); Carbon Dioxide 25 mmol/L (22.0-30.0); Chloride 105 mmol/L (98-107); Chol/HDL Ratio 4.3 (1-3.5); Cholesterol 143 mg/dl (140-200); Estimated Glomerular Filt Rate 48 ml/min (>60); GFR (African American) 58 ML/MIN (>60); Globulin 2.5 g/dL (1.3-3.2); Glucose 115 mg/dl (74-100); HDL Cholesterol 33 mg/dl (40-60); Potassium 4.5 mmoL/L (3.5-5.1); Sodium 139 mmol/L (136-145); Total Protein,Serum 6.1 g/dl (6.3-8.2); Triglycerides 183 mg/dl (30-150); VLDL Cholesterol 37 mg/dL (0-40)
[2023-04-01 19:30] LABS: Direct LDL Cholesterol 70.77 mg/dL (100-129)
[2023-04-01 19:37] LABS: 25-OH Vitamin D, Total 29.8 ng/mL (30-100)
[2023-04-01 19:50] LABS: Thyroid Stimulating Hormone 2.66 uIU/mL (0.465-4.68)
== END ==
PROVIDERS: PCP Physician Assistant; Visit Provider Physician Assistant
DX: M85.80 Other specified disorders of bone density and structure, unspecified site; R21 Rash and other nonspecific skin eruption; R53.83 Other fatigue; N39.0 Urinary tract infection, site not specified; E11.65 Type 2 diabetes mellitus with hyperglycemia; E55.9 Vitamin D deficiency, unspecified; Z79.899 Other long term (current) drug therapy
CPT/HCPCS: 80053; 80061; 82043; 82306; 82570; 83036; 84443; 85025; 87086

== ENCOUNTER → 2023-07-08 07:04 | Outpatient (CLI) | payer MEDICARE, BC, SELFPAY ==
[2023-07-08 19:16] LABS: Basophils % 0.7 % (0.1-2.0); Eosinophils # 0.1 K/mm3 (0.0-0.4); Eosinophils % 2.1 % (0.1-12.0); Hematocrit 46.7 % (37.0-47.0); Hemoglobin 15.9 g/dL (12.2-16.2); Lymphocytes # 1.5 K/mm3 (0.7-4.5); Mean Corpuscular HGB Conc 33.9 g/dL (31.8-35.4); Mean Corpuscular Volume 105.9 fl (81-99); Mean Platelet Volume 11.5 fl (7.4-10.4); Monocytes # 0.4 K/mm3 (0.1-1.0); Monocytes % 6.1 % (1.7-9.3); Neutrophils # 4.2 K/mm3 (1.8-7.8); Neutrophils % 67.1 % (37.0-80.0); Platelet Count 303 K/mm3 (142-424); Red Blood Count 4.41 M/mm3 (4.20-5.40); Red Cell Distribution Width 12.9 % (11.5-17.5); White Blood Count 6.2 K/mm3 (4.8-10.8)
[2023-07-08 19:35] LABS: Hemoglobin A1C 7.5 % (4.0-6.0)
[2023-07-08 19:42] LABS: Alanine Aminotransferase 24 U/L (12-78); Albumin/Globulin Ratio 1.5 (1.1-1.8); Alkaline Phosphatase 72 U/L (38-126); Anion Gap 13.7 mEq/L (5-15); Aspartate Amino Transferase 31 U/L (14-36); Bilirubin,Total 0.9 mg/dl (0.2-1.3); Blood Urea Nitrogen 19 mg/dl (7-17); Calcium 8.4 mg/dl (8.4-10.2); Carbon Dioxide 27 mmol/L (22.0-30.0); Chloride 102 mmol/L (98-107); Chol/HDL Ratio 4.1 (1-3.5); Cholesterol 140 mg/dl (140-200); Estimated Glomerular Filt Rate 48 ml/min (>60); GFR (African American) 58 ML/MIN (>60); Globulin 2.6 g/dL (1.3-3.2); Glucose 99 mg/dl (74-100); HDL Cholesterol 34 mg/dl (40-60); Potassium 4.7 mmoL/L (3.5-5.1); Sodium 138 mmol/L (136-145); Total Protein,Serum 6.6 g/dl (6.3-8.2); Triglycerides 172 mg/dl (30-150); VLDL Cholesterol 34 mg/dL (0-40)
[2023-07-08 19:55] LABS: 25-OH Vitamin D, Total 26.8 ng/mL (30-100)
[2023-07-08 20:06] LABS: Direct LDL Cholesterol 82.52 mg/dL (100-129)
== END ==
PROVIDERS: PCP Physician Assistant; Visit Provider Physician Assistant
DX: E11.65 Type 2 diabetes mellitus with hyperglycemia (principal); N39.0 Urinary tract infection, site not specified; E03.9 Hypothyroidism, unspecified; M85.80 Other specified disorders of bone density and structure, unspecified site; E55.9 Vitamin D deficiency, unspecified; Z79.84 Long term (current) use of oral hypoglycemic drugs
CPT/HCPCS: 80053; 80061; 82306; 83036; 84443; 85025; 87086

== ENCOUNTER 2023-11-09 17:58 | Outpatient (CLI) | payer MEDICARE, BC, SELFPAY ==
[2023-11-09 18:20] LABS: Basophils # 0.1 K/mm3 (0-0.2); Eosinophils # 0.2 K/mm3 (0.0-0.4); Eosinophils % 2.6 % (0.1-12.0); Hematocrit 43.6 % (37.0-47.0); Hemoglobin 13.9 g/dL (12.2-16.2); Lymphocytes # 1.8 K/mm3 (0.7-4.5); Lymphocytes % 31.5 % (10-50); Mean Corpuscular HGB Conc 31.8 g/dL (31.8-35.4); Mean Corpuscular Hemoglobin 34.2 pg (27.0-31.2); Mean Corpuscular Volume 107.4 fl (81-99); Mean Platelet Volume 10.1 fl (7.4-10.4); Monocytes # 0.4 K/mm3 (0.1-1.0); Monocytes % 7.2 % (1.7-9.3); Neutrophils # 3.2 K/mm3 (1.8-7.8); Neutrophils % 56.8 % (37.0-80.0); Platelet Count 325 K/mm3 (142-424); Red Blood Count 4.06 M/mm3 (4.20-5.40); Red Cell Distribution Width 13.1 % (11.5-17.5); White Blood Count 5.7 K/mm3 (4.8-10.8)
[2023-11-09 18:58] LABS: Alanine Aminotransferase 23 U/L (12-78); Albumin Level 4.1 g/dl (3.5-5.0); Albumin/Globulin Ratio 1.9 (1.1-1.8); Alkaline Phosphatase 78 U/L (38-126); Anion Gap 10.6 mEq/L (5-15); Aspartate Amino Transferase 28 U/L (14-36); Bilirubin,Total 0.7 mg/dl (0.2-1.3); Blood Urea Nitrogen 16 mg/dl (7-17); Calcium 9.2 mg/dl (8.4-10.2); Carbon Dioxide 27 mmol/L (22.0-30.0); Chloride 105 mmol/L (98-107); Chol/HDL Ratio 3.8 (1-3.5); Cholesterol 188 mg/dl (140-200); Estimated Glomerular Filt Rate 54 ml/min (>60); GFR (African American) 65 ML/MIN (>60); Globulin 2.2 g/dL (1.3-3.2); Glucose 154 mg/dl (74-100); HDL Cholesterol 49 mg/dl (40-60); Potassium 4.6 mmoL/L (3.5-5.1); Sodium 138 mmol/L (136-145); Total Protein,Serum 6.3 g/dl (6.3-8.2); Triglycerides 223 mg/dl (30-150); VLDL Cholesterol 45 mg/dL (0-40)
[2023-11-09 19:02] LABS: Hemoglobin A1C 7.7 % (4.0-6.0)
[2023-11-09 19:06] LABS: 25-OH Vitamin D, Total 22.3 ng/mL (30-100)
[2023-11-09 19:11] LABS: Direct LDL Cholesterol 97.92 mg/dL (100-129)
[2023-11-09 19:26] LABS: Thyroid Stimulating Hormone 7.69 uIU/mL (0.465-4.68)
== END 2023-11-09 23:59 ==
LOC: LAB.DROPOF 17:58
PROVIDERS: PCP Physician Assistant; Visit Provider Physician Assistant
DX: E55.9 Vitamin D deficiency, unspecified (principal); R53.83 Other fatigue; I10 Essential (primary) hypertension; E03.9 Hypothyroidism, unspecified; E11.65 Type 2 diabetes mellitus with hyperglycemia; K59.00 Constipation, unspecified; N39.0 Urinary tract infection, site not specified; Z79.84 Long term (current) use of oral hypoglycemic drugs
CPT/HCPCS: 80053; 80061; 82306; 83036; 84439; 84443; 85025; 87086

== ENCOUNTER 2024-01-21 20:58 | Emergency (ER) | payer MEDICARE, BC, SELFPAY ==
[2024-01-21] VITALS (11 sets, daily range): BP systolic 138–154; BP diastolic 62–82; PULSE 68–88; RESP 12–20; TEMP 36.4; O2SAT 90–100; BMI 33.0
--- NOTE | 2024-01-21 20:53 | ECG_ITS ---
APPROVED REPORT Exam: Resting ECG HR:73 bpm ECG Measurements Heart Rate 73 AXES MO 206 P 52 QRSd 170 QRS -10 QT 507 T 142 QTc 533 Conclusion SINUS RHYTHM LEFT BUNDLE BRANCH BLOCK [120+ ms QRS DURATION, 80+ ms Q/S IN V1/V2, 85+ ms R IN I/aVL/V5/V6] ABNORMAL ECG Electronically signed by : LORAINE BALES, 01/23/2024 07:20:51
--- NOTE | 2024-01-21 20:59 | PC.NURSE ---
stroke alert called at this time
--- NOTE | 2024-01-21 21:03 | CT_ITS ---
PROCEDURE INFORMATION: Exam: CTA Head With Contrast, Arteriography Exam date and time: 01/21/2024 9:12 PM Age: 78 years old Clinical indication: Stroke-like symptoms; Speech disturbance and other: Right sided deficits; Additional info: Possible stroke dizzy aphasia TECHNIQUE: Imaging protocol: Computed tomographic angiography of the head with contrast. Exam focused on the arteries. 3D rendering (Not supervised by radiologist): MIP and/or 3D reconstructed images were created by the technologist. Radiation optimization: All CT scans at this facility use at least one of these dose optimization techniques: automated exposure control; mA and/or kV adjustment per patient size (includes targeted exams where dose is matched to clinical indication); or iterative reconstruction. Contrast material: ISOVUE 370; Contrast volume: 100 ml; Contrast route: INTRAVENOUS (IV); COMPARISON: CT HEAD/BRAIN WO CON 01/21/2024 9:06 PM FINDINGS: ANTERIOR CIRCULATION: Right internal carotid artery: Intracranial segment is patent with no significant stenosis. No aneurysm. Right middle cerebral artery: No occlusion or significant stenosis. No aneurysm. Right anterior cerebral artery: No occlusion or significant stenosis. No aneurysm. Left internal carotid artery: Intracranial segment is patent with no significant stenosis. No aneurysm. Left middle cerebral artery: No occlusion or significant stenosis. No aneurysm. Left anterior cerebral artery: No occlusion or significant stenosis. No aneurysm. POSTERIOR CIRCULATION: Right vertebral artery: No occlusion or significant stenosis. No aneurysm. Left vertebral artery: No occlusion or significant stenosis. No aneurysm. Basilar artery: No occlusion or significant stenosis. No aneurysm. Right posterior cerebral artery: No occlusion or significant stenosis. No aneurysm. Left posterior cerebral artery: Severe stenosis of the P1 segment and minimal to no visualization distally from the P2 segment without reconstitution. Brain: Remote left SUELLEN infarct. No acute intracranial hemorrhage. Cerebral ventricles: No ventriculomegaly. Bones/joints: No acute fracture. Soft tissues: Small volume of air within the left vp strategic planning space. Other findings: Left subclavian artery stent. IMPRESSION: 1. Severe stenosis of the left LIFE UNDERWRITER P1 segment and poor/non visualization of the P2 segment without reconstitution distally. 2. There is air within the left vp strategic planning space as well as the left superior/inferior orbital veins as well as the straight sinus. Recommend correlation with history/physical exam. 3. Other findings as above.
--- NOTE | 2024-01-21 21:03 | CT_ITS ---
PROCEDURE INFORMATION: Exam: CT Head Without Contrast Exam date and time: 01/21/2024 9:06 PM Age: 78 years old Clinical indication: Stroke-like symptoms; Speech disturbance and other: Right sided deficits; Additional info: Possible stroke TECHNIQUE: Imaging protocol: Computed tomography of the head without contrast. Radiation optimization: All CT scans at this facility use at least one of these dose optimization techniques: automated exposure control; mA and/or kV adjustment per patient size (includes targeted exams where dose is matched to clinical indication); or iterative reconstruction. Other technique: STROKE PROTOCOL was implemented. COMPARISON: No relevant prior studies available. FINDINGS: Brain: There is diffuse enlargement CSF containing spaces consistent with global parenchymal volume loss. No acute intracranial hemorrhage. No evidence of large acute territorial infarct or significant cerebral edema. Encephalomalacia within the territory of the left SUELLEN. Remote lacunar infarct within the right basal ganglia No midline shift or significant mass effect. Cerebral ventricles: No hydrocephalus. Paranasal sinuses: The paranasal sinuses are clear. Mastoid air cells: The mastoid air cells are clear. Orbital cavities: The orbits are unremarkable. Bones: No acute fracture. Soft tissues: Multiple foci of air within the left aligning inspector muscle as well as within the left orbit Vasculature: Punctate focus of air within the straight sinus. IMPRESSION: 1. No acute intracranial hemorrhage or large territorial infarct recommend correlation with history/physical exam and if clinical concern persists consider further evaluation with MRI. 2. Remote left SUELLEN infarct. 3. Air within the left aligning inspector space, straight sinus, and about the left superior/inferior orbital veins. Recommend correlation with history/physical exam. 4. Other findings as above. ASSESSMENT: ASPECTS ([place] Stroke Program Early CT Score) is 10.
--- NOTE | 2024-01-21 21:03 | PC.NURSE ---
pt to CT
[2024-01-21 21:10] LABS: Basophils # 0.2 K/mm3 (0-0.2); Basophils % 1.8 % (0.1-2.0); Eosinophils # 0.2 K/mm3 (0.0-0.4); Hematocrit 45.8 % (37.0-47.0); Hemoglobin 15.3 g/dL (12.2-16.2); Lymphocytes # 4.4 K/mm3 (0.7-4.5); Lymphocytes % 46.1 % (10-50); Mean Corpuscular HGB Conc 33.4 g/dL (31.8-35.4); Mean Corpuscular Hemoglobin 35.1 pg (27.0-31.2); Mean Platelet Volume 9.3 fl (7.4-10.4); Monocytes # 0.5 K/mm3 (0.1-1.0); Monocytes % 4.6 % (1.7-9.3); Neutrophils # 4.4 K/mm3 (1.8-7.8); Neutrophils % 45.5 % (37.0-80.0); Platelet Count 383 K/mm3 (142-424); Red Blood Count 4.37 M/mm3 (4.20-5.40); Red Cell Distribution Width 13.6 % (11.5-17.5); White Blood Count 9.6 K/mm3 (4.8-10.8)
--- NOTE | 2024-01-21 21:18 | CT_ITS ---
PROCEDURE INFORMATION: Exam: CTA Neck With Contrast Exam date and time: 01/21/2024 9:12 PM Age: 78 years old Clinical indication: Stroke-like symptoms; Speech disturbance and other: Right sided deficits; Additional info: Possible stroke dizzy aphasia TECHNIQUE: Imaging protocol: Computed tomographic angiography of the neck with contrast. Exam focused on the cervical segments of the vasculature. 3D rendering (Not supervised by radiologist): MIP and/or 3D reconstructed images were created by the technologist. Radiation optimization: All CT scans at this facility use at least one of these dose optimization techniques: automated exposure control; mA and/or kV adjustment per patient size (includes targeted exams where dose is matched to clinical indication); or iterative reconstruction. Contrast material: ISOVUE 370; Contrast volume: 100 ml; Contrast route: INTRAVENOUS (IV); COMPARISON: CT ANGIO HEAD 01/21/2024 9:12 PM FINDINGS: Right common carotid artery: No stenosis. No dissection or occlusion. Right internal carotid artery: No stenosis of the extracranial segment. No dissection or occlusion. Right external carotid artery: No occlusion or stenosis of the origin. Left common carotid artery: No stenosis. No dissection or occlusion. Left internal carotid artery: No stenosis of the extracranial segment. No dissection or occlusion. Left external carotid artery: No occlusion or stenosis of the origin. Right vertebral artery: No stenosis. No dissection or occlusion. Left vertebral artery: No stenosis. No dissection or occlusion. Left subclavian artery: Left subclavian artery stent. Soft tissues: Air within the left cat cracker operator space. Multiple surgical clips about the right jugular vein/right submandibular gland. Bones/joints: No acute fracture. Degenerative changes of the spine. IMPRESSION: 1. No occlusion or stenosis. 2. Other findings as above. REFERENCES: NASCET CRITERIA. The degree of stenosis in the cervical segment of the internal carotid artery is based on NASCET criteria. Normal is no stenosis. Mild is less than 50% stenosis. Moderate is 50-69% stenosis. Severe is 70% to 99% stenosis. Total occlusion is no detectable patent lumen.
[2024-01-21] MEDS: 0.9 % SODIUM CHLORIDE 50 ML VIAL 40 ML IV (21:19)
[2024-01-21] MEDS: IOPAMIDOL-370 (76%);100ML BOTTLE 100 ML IV (21:19)
[2024-01-21] MEDS: SODIUM CHLORIDE 0.9% 10ML SYR (RAD ONLY) 10 ML IV (21:19)
--- NOTE | 2024-01-21 21:20 | HMH.ITSTN ---
BEL DID NOT WANT TO WAIT ON LABS FOR CTA HEAD/NECK STROKE PROTOCOL. HE SIGNED CONSENT FORM FOR PATIENT
[2024-01-21 21:21] LABS: Alanine Aminotransferase 29 U/L (12-78); Albumin Level 4.5 g/dl (3.5-5.0); Albumin/Globulin Ratio 1.6 (1.1-1.8); Alkaline Phosphatase 79 U/L (38-126); Anion Gap 17.3 mEq/L (5-15); Aspartate Amino Transferase 36 U/L (14-36); Bilirubin,Total 0.7 mg/dl (0.2-1.3); Blood Urea Nitrogen 20 mg/dl (7-17); Calcium 9.2 mg/dl (8.4-10.2); Carbon Dioxide 25 mmol/L (22.0-30.0); Chloride 103 mmol/L (98-107); Cholesterol 156 mg/dl (140-200); Creatinine Clearance Estimated 54 mL/min (50-200); Estimated Glomerular Filt Rate 48 ml/min (>60); GFR (African American) 58 ML/MIN (>60); Globulin 2.8 g/dL (1.3-3.2); Glucose 173 mg/dl (74-100); HDL Cholesterol 39 mg/dl (40-60); Potassium 4.3 mmoL/L (3.5-5.1); Sodium 141 mmol/L (136-145); Total Protein,Serum 7.3 g/dl (6.3-8.2); Triglycerides 313 mg/dl (30-150); VLDL Cholesterol 63 mg/dL (0-40)
[2024-01-21] MEDS: ONDANSETRON 4MG/2ML VIAL 4 MG IV (21:21)
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
--- NOTE | 2024-01-21 21:25 | PC.NURSE ---
family at bedside.
[2024-01-21 21:26] LABS: Activated Partial Thrombo Time 26.2 seconds (22.8-30.6); INR 1.04 (0.9-1.1); Prothrombin Time 11.2 seconds (10.1-12.5)
[2024-01-21 21:27] LABS: Ethyl Alcohol < 10 mg/dl (0-10)
--- NOTE | 2024-01-21 21:28 | PC.NURSE ---
md montez at bedside
[2024-01-21 21:32] LABS: Direct LDL Cholesterol 76.79 mg/dL (100-129)
--- NOTE | 2024-01-21 21:33 | XR_ITS ---
PROCEDURE INFORMATION: Exam: XR Chest Exam date and time: 01/21/2024 9:43 PM Age: 78 years old Clinical indication: Other: AMS TECHNIQUE: Imaging protocol: Radiologic exam of the chest. Views: 1 view. COMPARISON: CT ANGIO NECK 01/21/2024 9:12 PM FINDINGS: Limitations: Evaluation is limited by patient rotation. Lungs: The lungs are adequately inflated. Hazy opacification bilateral lower lobes. Linear radiopacities likely represent atelectasis versus scarring. Pleural spaces: No pneumothorax or pleural effusion. Heart/Mediastinum: The cardiomediastinal silhouette is mildly enlarged, possibly accentuated by technique. Bones/joints: No displaced fracture. Intraperitoneal space: The visualized abdomen is unremarkable. IMPRESSION: Imaging findings may represent component of pulmonary edema in the appropriate clinical setting. Recommend correlation with history/physical exam.
[2024-01-21 21:36] LABS: Troponin I < 0.01 ng/ml (0.00-0.034)
[2024-01-21 21:47] LABS: Microscopic, Urine URINE MICROSCOPIC (MICROSCOPIC)
[2024-01-21 21:50] LABS: Appearance,Urine CLEAR (Clear); Bilirubin,Urine Negative (Negative); Blood, Urine Negative (Negative); Color,Urine YELLOW (Yellow); Glucose,Urine (UA) Negative (Negative); Ketones,Urine Negative (Negative); Leukocyte Esterase,Urine Negative (Negative); Nitrate,Urine Negative (Negative); Protein,Urine Negative (Negative); Urobilinogen,Urine 0.2 EU/dl (0.2)
[2024-01-21 22:00] LABS: Amphetamine/Metha Screen,Urine Negative ng/ml (<1000); Barbiturates Screen,Urine Negative ng/ml (<200)
[2024-01-21 22:01] LABS: Benzodiazepines Screen,Urine Negative ng/ml (<200); Cannabinoid Screen,Urine Negative ng/ml (<50)
--- NOTE | 2024-01-21 22:01 | PC.NURSE ---
[facility] contacted re: they have accepted and will be here in 22 minutes
[2024-01-21 22:02] LABS: Cocaine Screen,Urine Negative ng/ml (<300)
[2024-01-21 22:03] LABS: Methadone Screen,Urine Negative ng/ml (<300); Opiate Screen,Urine Negative ng/ml (<300)
[2024-01-21 22:04] LABS: Phencyclidine Screen,Urine Negative ng/ml (<25)
--- NOTE | 2024-01-21 22:04 | PC.NURSE ---
contacted house re: [facility].
--- NOTE | 2024-01-21 22:08 | PC.NURSE ---
Contacted after-hours pharmacy for vancomycin dosing.
--- NOTE | 2024-01-21 22:10 | PC.NURSE ---
discussing with family transfer of patient
[2024-01-21 22:19] LABS: Bacteria,Urine Trace /lpf; Uric Acid Crystals,Urine 1+ /lpf
[2024-01-21] MEDS: CEFEPIME HCL 2 GM in 0.9 % SODIUM CHLORIDE 100 ML IV (22:22)
[2024-01-21] MEDS: VANCOMYCIN/WATER FOR INJ (PEG) 1.75 GM/350 ML PIGGYBACK IV (22:24)
--- NOTE | 2024-01-21 22:40 | PC.NURSE ---
[facility] present at bedside. staff assisting transfer to their stretcher. care assumed.
== END 2024-01-21 22:58 | disposition short-term general hospital (02) ==
PROVIDERS: Emergency Provider Emergency Medicine; PCP Physician Assistant
DX: G93.89 Other specified disorders of brain (principal); G93.49 Other encephalopathy; R47.01 Aphasia; I44.7 Left bundle-branch block, unspecified; E11.9 Type 2 diabetes mellitus without complications; E03.9 Hypothyroidism, unspecified; I11.9 Hypertensive heart disease without heart failure; I25.10 Atherosclerotic heart disease of native coronary artery without angina pectoris; Z95.5 Presence of coronary angioplasty implant and graft; Z79.84 Long term (current) use of oral hypoglycemic drugs
CPT/HCPCS: 70450; 70496; 70498; 71045; 80053; 80061; 80307; 80320; 81001; 84484; 85025; 85610; 85730; 93005; 96365; 96375; 99291; G0480; J2405; Q9967

== ENCOUNTER 2024-02-09 13:45 | Outpatient (CLI) | payer MEDICARE, BC, SELFPAY ==
--- NOTE | 2024-02-09 13:45 | CA_ITS ---
APPROVED REPORT EXAM: Comprehensive 2D, Doppler, and color-flow Echocardiogram Aviation Engineer: Magali Mckoy, RCS, RVS Ht: 5 ft 0 in Wt: 147lbs BSA: 1.64 BP: 128/68 mmHg Indications: SOB, CVA-2weeks ago, Known CM, CAD, Murmurs Echo Enhancing Agent Indication: Rule out thrombus Agent(s) / Amount(s) Used: Definity 2 cc Comments: Extremely difficult windows due to patient intolerance to touch 2D Dimensions LVDd 5.45 cm F: 3.9 - 5.3 LVEF (Visual) 34.60 % LVDs 4.54 cm F: 2.2 - 3.5 LA Volume 69.20 mL Left Atrium 4.11 cm F: 2.7 - 3.8 LA Volume Index 42.20 mL/m2 (M/F) 16-34 M-Mode Dimensions RVDd 1.53 cm (0.9-2.6) LA Diam 4.70 cm (1.9-4.0) LVDd 6.58 cm (3.5-5.7) LVDs 4.46 cm (3.5-5.7) IVSd 1.32 cm (0.6-1.1) PWd 1.49 cm (0.6-1.1) EF (Teich) 30.00% EPSs 1.82 cm FS 15.00% EDV (Teich) 222.10 mL TAPSE 1.88 (<1.7) ESV (Teich) 90.50 mL LV Diastology E Decel Time 313 (160-240 msec) E/A Ratio 0.51 MED A' 4.20 cm/s LAT A' 5.00 cm/s Aortic Valve GRACE Index 0.58 cm2/m2 AoV Peak Armaan. 151.0 (50-130 cm/s) AI PHT 461.00 ms AO Peak GR. 9.10 mmHg AO Mean GR. 4.70 (<5 mmHg) AO VTI 36.4 (18-25 cm) GRACE (VTI) 0.98 (2.5-4.5 cm2) Mitral Valve MV A Velocity 126.0 (40-130 cm/s) E/A Ratio 0.51 Pulmonary Valve PV Peak Velocity 93.0 (50-150 cm/s) Tricuspid Valve TR P. Velocity 306.00 cm/s RAP Estimate 10.00 mmHg RVSP 47.50 mmHg Left Ventricle The left ventricle is normal size. Left ventricular systolic function is moderate to severely decreased. There is increased LV wall thickness. Grade 1 diastolic dysfunction is present. There is akinesis of the septal, inferior, inferoseptal, and anteroseptal LV camara. No left ventricle thrombus noted on this study. LVEF is 30%. Right Ventricle The right ventricle is normal size. The right ventricular systolic function is normal. Atria Left atrium is mildly dilated. The right atrium size is normal. There is no Doppler evidence of interatrial shunt. Aortic Valve The aortic valve is mildly thickened. There is no aortic valvular stenosis. Mild aortic regurgitation. Mitral Valve The mitral valve leaflets are mildly thickened. No evidence of mitral valve stenosis. Mild mitral regurgitation. Tricuspid Valve The tricuspid valve leaflets are thin and pliable. Mild to moderate tricuspid regurgitation. RVSP is 30-35 mmHg. Pulmonic Valve The pulmonary valve is normal in structure. Mild pulmonic regurgitation. Great Vessels The aortic root is normal in size. The ascending aorta is not well-visualized. IVC is normal in size and collapses >50% with inspiration. Pericardium There is no pericardial effusion. Other Information Study Quality: Fair Conclusion Moderate to severe reduction in LV systolic function (LVEF 30%). Akinesis of the septal, inferior, inferoseptal, and anteroseptal LV camara. Biatrial dilation. Mild AI, mild MR, mild PI. Mild to moderate TR. RVSP is 30-35 mmHg. Administration of ultrasound enhancing agent demonstrates no evidence of LV apical thrombus (contrast administration was performed in the setting of stroke evaluation). Electronically signed by : Keshia Knott MD 02/14/2024 23:21:09
[2024-02-09] MEDS: DEFINITY US ECHO CONTRAST 2ML INJ 2 MG IV (15:10)
== END 2024-02-09 23:59 | disposition home or self-care (01) ==
LOC: RT 13:45
PROVIDERS: PCP Physician Assistant; Visit Provider Physician Assistant
DX: R06.00 Dyspnea, unspecified (principal); I11.9 Hypertensive heart disease without heart failure; I25.10 Atherosclerotic heart disease of native coronary artery without angina pectoris; R01.1 Cardiac murmur, unspecified; I42.8 Other cardiomyopathies
CPT/HCPCS: 93306; Q9957

== ENCOUNTER 2024-03-01 09:37 | Outpatient (CLI) | payer MEDICARE, BC, SELFPAY | END 2024-03-01 23:59 | disposition home or self-care (01) | LOC: LAB.DROPOF 03-02 09:37 | PROVIDERS: PCP Physician Assistant; Visit Provider Physician Assistant | DX: N39.0 Urinary tract infection, site not specified (principal) | CPT/HCPCS: 87086 ==

== ENCOUNTER 2024-04-16 10:52 | Emergency (ER) | payer MEDICARE, BC, SELFPAY ==
[2024-04-16 11:00] VITALS: BP 142/56; PULSE 59; RESP 19; TEMP 37.1; O2SAT 95; BMI 28.3
--- NOTE | 2024-04-16 11:19 | EXP.UTC ---
Discharge Plan Disposition Patient Disposition: Home, Self-Care Condition: Good Prescriptions Prescriptions: New cephalexin 500 mg tablet 500 mg PO BID 7 Days Qty: 14 0RF No Action (DME) blood-glucose meter [Microdot Blood Glucose System] [facility] [place] [facility] [place] See Dose Instructions .ROUTE .MEDSUPPLY Qty: 1 Rx Instructions: As directed tramadol 50 mg tablet 50 mg PO BID PRN (Reason: hip pain) Qty: 60 1RF rosuvastatin 20 mg tablet PO clopidogrel 75 mg tablet PO aspirin [Adult Low Dose Aspirin] 81 mg tablet,delayed release (DR/EC) 81 mg PO QDAY Qty: 90 3RF isosorbide mononitrate 120 mg tablet extended release 24 hr PO atenolol 50 mg tablet See Rx Instructions .ROUTE .COMPLEX Qty: 180 3RF Dose Instruction: TAKE ONE TABLET BY MOUTH 2 TIMES A DAY Rx Instructions: TAKE ONE TABLET BY MOUTH 2 TIMES A DAY glipizide 10 mg tablet extended release 24hr See Rx Instructions .ROUTE .COMPLEX Qty: 90 3RF Dose Instruction: TAKE ONE TABLET BY MOUTH ONCE A DAY Rx Instructions: TAKE ONE TABLET BY MOUTH ONCE A DAY fexofenadine 180 mg tablet See Rx Instructions .ROUTE .COMPLEX Qty: 30 2RF Dose Instruction: TAKE ONE TABLET BY MOUTH ONCE A DAY Rx Instructions: TAKE ONE TABLET BY MOUTH ONCE A DAY nitroglycerin 0.4 mg tablet, sublingual See Rx Instructions .ROUTE .COMPLEX Qty: 25 0RF Dose Instruction: DISSOLVE 1 TAB UNDER TONGUE AT ONSET OF CHEST PAIN. REPEAT EVERY 5 MINUTES FOR 3 DOSES IF NEEDED. IF NO RELIEF CALL 911. Rx Instructions: DISSOLVE 1 TAB UNDER TONGUE AT ONSET OF CHEST PAIN. REPEAT EVERY 5 MINUTES FOR 3 DOSES IF NEEDED. IF NO RELIEF CALL 911. ranolazine 500 mg tablet extended release 12 hr 500 mg PO BID Qty: 60 2RF thyroid (pork) [TEST EQUIPMENT MECHANIC Thyroid] 90 mg tablet See Rx Instructions .ROUTE .COMPLEX Qty: 90 0RF Dose Instruction: TAKE ONE TABLET BY MOUTH ONCE A DAY Rx Instructions: TAKE ONE TABLET BY MOUTH ONCE A DAY fluconazole 150 mg tablet 150 mg PO .QOD Qty: 5 0RF Referrals Follow up/Referrals: Provider,Referral, MD [Primary Care Provider] - See instructions Activity Restrictions/Add. Instructions Additional Instructions/Restrictions: Increase fluids, water and not soda or tea. Can drink cranberry juice or cranberry extract. Wipe front to back Wear cotton underwear Empty bladder after intercourse Start antibiotics immediately and make sure you take the full course although you may start to see improvement over the next 48 hours. You can eat yogurt or take probiotics to decrease diarrhea or yeast infection caused by the antibiotic Be sure to follow-up anytime for new or worsening symptoms in 48 hours for wound urine culture results be sure to let you PCP no recent urine for culture so they can request records and ensure that you have appropriate antibiotic if you are not getting better or getting worse. If symptoms worsen or do not improve return or be seen in the ER. Follow-up with primary care this week. Clinical Impressions Clinical Impression: Acute UTI Instructions Patient Instructions: DI for Urinary Tract Infection (UTI) Print Language Print Language: Romanian Discharge ED Provider: Orly ([facility] [place] General Stated complaint: ear pain left ear, pain and freq urination Mode of Arrival: Ambulatory Source of Information: Patient Limitations: No Limitations Time Seen by Provider: 04/16/24 11:20 Description of Symptoms (Recalled from Triage Doc. by RN): PATIENT C/O URINARY FREQUENCY AND LEFT EAR PAIN HEENT Symptoms (Recalled from RN notes): Yes Resp Symptoms (Recalled from RN notes): No Skin Symptoms (Recalled from RN notes): No MS Symptoms (Recalled from RN notes): No Functional Status (Recalled from RN notes): WNL History of Present Illness Provider Complaint: 79 yr old female presents for c/o ear pain left ear, pain and freq urination Related Data Home Medications ?Medication ?Instructions ?Recorded ?Confirmed blood-glucose meter (Microdot #1 ea 08/31/17 03/01/24 Blood Glucose Monitoring System) isosorbide mononitrate 120 mg mg PO 10/23/21 03/01/24 tablet,extended release 24 hr clopidogrel 75 mg tablet mg PO 02/02/24 03/01/24 rosuvastatin 20 mg tablet mg PO 02/02/24 03/01/24 Previous Rx's ?Medication ?Instructions ?Recorded aspirin 81 mg tablet,delayed 81 mg PO QDAY #90 tabs 12/31/20 release (Adult Low Dose Aspirin) atenolol 50 mg tablet See Rx Instructions .Route 08/07/23 .COMPLEX #180 tabs glipizide 10 mg tablet, extended See Rx Instructions .Route 08/26/23 release 24 hr .COMPLEX #90 tabs fexofenadine 180 mg tablet See Rx Instructions .Route 09/23/23 .COMPLEX #30 tabs nitroglycerin 0.4 mg sublingual See Rx Instructions .Route 11/30/23 tablet .COMPLEX #25 tabs tramadol 50 mg tablet 50 mg PO BID PRN hip pain #60 tabs 12/23/23 ranolazine 500 mg tablet,extended 500 mg PO BID #60 tabs 02/04/24 release,12 hr thyroid (pork) 90 mg tablet (TEST EQUIPMENT MECHANIC See Rx Instructions .Route 02/18/24 Thyroid) .COMPLEX #90 tabs fluconazole 150 mg tablet 150 mg PO .QOD #5 tabs 03/04/24 cephalexin 500 mg tablet 500 mg PO BID 7 days #14 tabs 04/16/24 Allergies Allergy/AdvReac Type Severity Reaction Status Date / Time cefdinir Allergy Intermediate hallucinati Verified 03/01/24 11:15 ons acetaminophen [ACETAMINOPHEN] Allergy Unknown Verified 03/01/24 11:15 nitrofurantoin Allergy Unknown Verified 03/01/24 11:15 [From MACRODANTIN] Penicillins [PENICILLINS] Allergy Unknown Verified 03/01/24 11:15 Sulfa (Sulfonamide Allergy Unknown Verified 03/01/24 11:15 Antibiotics) [SULFA (SULFONAMIDE ANTIBIOTICS)] Worker's Comp Is this a Worker's Comp case?: No [facility] Disclaimer: The information contained in this section may have been updated after the patient was seen, as this information can be updated by other users. Medical History , COMB CAPPER) Chronic kidney disease Neuroforaminal stenosis of lumbar spine CAD (coronary artery disease) HTN (hypertension) Diabetes Head congestion Social History , COMB CAPPER) Smoking Status: Unknown if ever smoked alcohol intake: never substance use type: denies use current occupational status: disabled Travel in the last 8 weeks: None ROS Obtained: Yes All systems reviewed & no additional complaints except as documented Constitutional Constitutional: Reports system reviewed and no additional complaints, except as documented Eyes Eyes: Reports system reviewed and no additional complaints, except as documented ENT Ears, Nose, Mouth, and Throat: Reports system reviewed and no additional complaints, except as documented, Reports as per HPI and Reports otalgia Cardiovascular Cardiovascular: Reports system reviewed and no additional complaints, except as documented Respiratory Respiratory: Reports system reviewed and no additional complaints, except as documented Gastrointestinal Gastrointestingal: Reports system reviewed and no additional complaints, except as documented Genitourinary Female Genitourinary: Reports system reviewed and no additional complaints, except as documented, Reports as per HPI, Reports dysuria, Reports urinary frequency, Reports urinary hesitancy and Reports urinary urgency Musculoskeletal Musculoskeletal: Reports system reviewed and no additional complaints, except as documented Integumentary/Breasts Skin/Breast: Reports system reviewed and no additional complaints, except as documented Neurologic Neurologic: Reports system reviewed and no additional complaints, except as documented Endocrine Endocrine: Reports system reviewed and no additional complaints, except as documented Hematologic/Lymphatic Henatologic/Lymphatic: Reports system reviewed and no additional complaints, except as documented Allergic/Immunologic Allergic/Immunologic: Reports system reviewed and no additional complaints, except as documented Physical Exam General General appearance: alert and in no apparent distress Eye Eye exam: Present normal appearance and PERRL ENT ENT exam: Present normal oropharynx and mucous membranes moist Expanded ENT Exam TM/Canal exam: Left TM: erythema Respiratory Respiratory exam: Present normal lung sounds bilaterally Cardiovascular Cardiovascular exam: Present regular rate and normal rhythm Neurological Exam Neurological exam: Present alert and oriented X3 Skin Skin exam: Present warm and intact Medical Decision Making Medical Records Medical records reviewed: Yes I reviewed the patient's medical records. Tate Inquiry Pt receiving controlled substance: No Tate was queried for this patient: No Vital Signs: 04/16/24 11:00 Temperature 98.7 F Temperature Source Oral Pulse Rate [Left Brachial] 59 L Respiratory Rate 19 Blood Pressure [Left Arm] 142/56 H Blood Pressure Mean [Left Arm] 84 Blood Pressure Source [Left Arm] Automatic Cuff Blood Pressure Position [Left Arm] Sitting 02 Sat by Pulse Oximetry 95 Oxygen Delivery Method Room Air Lab Data Lab results reviewed: Yes I reviewed the patient's lab results. Orders (Tests/Meds): ORDERS Category Date Time Status Urine Culture Stat Micro 04/16/24 11:18 Ordered Medical Decision Narrative: pt and family states she can take keflex
[2024-04-16 11:37] VITALS: BP 142/56; PULSE 59; RESP 19; TEMP 37.1; O2SAT 95
[2024-04-16 11:42] LABS: Apearance,Urine Cloudy (Clear); Bilirubin,Urine Negative (Negative); Blood, Urine Trace (Negative); Color,Urine Yellow (Yellow); Glucose,Urine (UA) Negative (Negative); Ketones,Urine Negative (Negative); PH,Urine 5.5 (5.0-8.5); Protein,Urine Negative (Negative); Specific Gravity, Urine 1.015 (1.005-1.030); UTC Leukocyte Esterase,Urine 1+ (Negative); UTC Nitrate,Urine Positive (Negative); Urobilinogen,Urine 0.2 EU/dl (0.2)
--- NOTE | 2024-04-20 09:52 | PC.NURSE ---
REVIEWED URINE CULTURE RESULTS WITH Blank HOWELL APRN, NO CHANGES NEEDED AT THIS TIME
== END 2024-04-16 11:42 | disposition home or self-care (01) ==
LOC: UTC 11:26
PROVIDERS: Emergency Provider Nurse Practitioner Family
DX: N39.0 Urinary tract infection, site not specified (principal); B96.1 Klebsiella pneumoniae [K. pneumoniae] as the cause of diseases classified elsewhere; H92.02 Otalgia, left ear; R30.9 Painful micturition, unspecified; R35.0 Frequency of micturition
CPT/HCPCS: 81003; 87086; 87088; 87186; 99212; 99214; G0463

== ENCOUNTER 2024-05-10 13:47 | Outpatient (CLI) | payer MEDICARE, BC, SELFPAY ==
[2024-05-10 14:02] LABS: Alanine Aminotransferase 32 U/L (12-78); Albumin Level 4.5 g/dl (3.5-5.0); Alkaline Phosphatase 65 U/L (38-126); Anion Gap 9.5 mEq/L (5-15); Aspartate Amino Transferase 37 U/L (14-36); Bilirubin,Total 1.2 mg/dl (0.2-1.3); Blood Urea Nitrogen 12 mg/dl (7-17); Calcium 10.4 mg/dl (8.4-10.2); Carbon Dioxide 34 mmol/L (22.0-30.0); Chloride 100 mmol/L (98-107); Chol/HDL Ratio 2.4 (1-3.5); Cholesterol 132 mg/dl (140-200); Estimated Glomerular Filt Rate 61 ml/min (>60); GFR (African American) 73 ML/MIN (>60); Globulin 2.3 g/dL (1.3-3.2); Glucose 175 mg/dl (74-100); HDL Cholesterol 55 mg/dl (40-60); Potassium 4.5 mmoL/L (3.5-5.1); Sodium 139 mmol/L (136-145); Total Protein,Serum 6.8 g/dl (6.3-8.2); Triglycerides 185 mg/dl (30-150); VLDL Cholesterol 37 mg/dL (0-40)
[2024-05-10 14:14] LABS: Intact Parathyroid Hormone 17.1 pg/mL (7.5-53.5)
[2024-05-10 14:19] LABS: 25-OH Vitamin D, Total 36.7 ng/mL (30-100); T4 (Thyroxine) 8.2 ug/dl (5.53-11.0)
[2024-05-10 14:20] LABS: Free T4 (Free Thyroxine) 0.95 ng/dl (0.78-2.19)
[2024-05-10 14:23] LABS: Hemoglobin A1C 7.4 % (4.0-6.0)
[2024-05-10 14:32] LABS: Thyroid Stimulating Hormone < 0.02 uIU/mL (0.465-4.68)
[2024-05-10 17:13] LABS: HIV (1&2) Antibody Rapid NONREACTIVE (NONREACTIVE)
[2024-05-12 05:22] LABS: HCV Ab Non Reactive (Non Reactive)
[2024-05-12 13:49] LABS: Thyroid Peroxidase Antibodies 63 IU/mL (0-34); Triiodothyronine (T3) Free 5.9 pg/mL (2.0-4.4)
[2024-05-12 16:29] LABS: Thyroglobulin Level 2.6 IU/mL (0.0-0.9)
== END 2024-05-10 23:59 | disposition home or self-care (01) ==
LOC: LAB.DROPOF 13:47
PROVIDERS: PCP Nurse Practitioner Family; Visit Provider Nurse Practitioner Family
DX: E03.9 Hypothyroidism, unspecified (principal); E11.9 Type 2 diabetes mellitus without complications; I10 Essential (primary) hypertension; E55.9 Vitamin D deficiency, unspecified; E34.9 Endocrine disorder, unspecified; B34.9 Viral infection, unspecified; N39.0 Urinary tract infection, site not specified
CPT/HCPCS: 80053; 80061; 82306; 83036; 83970; 84436; 84439; 84443; 84481; 86376; 86800; 86803; 87086; 87088; 87186; 87389

== ENCOUNTER 2024-05-17 13:41 | Outpatient (CLI) | payer MEDICARE, BC, SELFPAY ==
--- NOTE | 2024-05-17 13:45 | US_ITS ---
FINAL REPORT TECHNIQUE: Sonographic images of the thyroid gland were obtained. CLINICAL HISTORY: Thyromegaly. COMPARISON: None. FINDINGS: The right thyroid lobe measures 35 mm in length. The left thyroid lobe measures 23 mm in length. The thyroid is small. This can be seen with chronic thyroiditis. There is heterogeneous echotexture. No mass or nodule is identified. IMPRESSION: Small thyroid, can be seen with chronic thyroiditis. No thyroid mass or nodule. Reviewed, Interpreted and Dictated by Jose Nogueira III, MD Transcribed by Jadyn Ramos PA-C Authenticated and [facility]
== END 2024-05-17 23:59 | disposition home or self-care (01) ==
LOC: RAD 13:41
PROVIDERS: PCP Nurse Practitioner Family; Visit Provider Nurse Practitioner Family
DX: E01.0 Iodine-deficiency related diffuse (endemic) goiter (principal)
CPT/HCPCS: 76536

== ENCOUNTER 2024-07-13 09:00 | Outpatient (CLI) | payer MEDICARE, BC, SELFPAY ==
[2024-07-13 18:50] LABS: Free Thyroxine Index 1.7 ug/dL (5.93-13.13); T4 (Thyroxine) 6.1 ug/dl (5.53-11.0); Triiodothryronine (T3) Uptake 28 % (23.5-40.5)
== END 2024-07-13 23:59 | disposition home or self-care (01) ==
LOC: LAB.DROPOF 07-14 09:46
PROVIDERS: PCP Family Medicine; Visit Provider Family Medicine
DX: E03.9 Hypothyroidism, unspecified (principal)
CPT/HCPCS: 84436; 84443; 84479

== ENCOUNTER 2024-08-18 10:50 | Outpatient (CLI) | payer MEDICARE, BC, SELFPAY ==
[2024-08-18 18:58] LABS: Creatinine,Urine Random 33 mg/dL (Not Estab.)
[2024-08-18 19:00] LABS: Microalbumin/Creatinine Ratio 61.5
== END 2024-08-18 23:59 | disposition home or self-care (01) ==
LOC: LAB.DROPOF 08-19 10:40
PROVIDERS: PCP Family Medicine; Visit Provider Family Medicine
DX: E11.65 Type 2 diabetes mellitus with hyperglycemia (principal); N39.0 Urinary tract infection, site not specified
CPT/HCPCS: 82043; 82570; 87086; 87088; 87186

== ENCOUNTER 2024-09-01 09:19 | Outpatient (CLI) | payer MEDICARE, BC, SELFPAY ==
--- NOTE | 2024-09-01 09:21 | US_ITS ---
FINAL REPORT CLINICAL HISTORY: recurrent uti COMPARISON: None FINDINGS: ULTRASOUND BLADDER WITH POST VOID RESIDUAL Bladder volumes were estimated based on 3 dimensional measurements, pre- and postvoid. Prevoid bladder volume: 333 mls Postvoid bladder volume: 78 mls IMPRESSION: Estimated bladder volumes as above with mild postvoid residual . Reviewed, Interpreted and Dictated by Newton Guthrie MD Transcribed by Katy Wynn Authenticated and [facility]
--- NOTE | 2024-09-01 09:21 | CT_ITS ---
FINAL REPORT TECHNIQUE: Before and after the administration of oral and intravenous contrast, axial images were obtained through the abdomen and pelvis by computed tomography. The study was performed with techniques to keep radiation dose as low as reasonably achievable, (ALARA). Individual dose reduction techniques using automated exposure control or adjustment of mA and/or kV according to the patient's size were employed. CLINICAL HISTORY: chronic constipation, bloating, abd pain COMPARISON: None FINDINGS: CT ABDOMEN AND PELVIS WITH AND WITHOUT CONTRAST: Precontrast enhanced images do not demonstrate any calcifications to suggest renal stones. Extensive vascular calcifications are, however, noted. Scarring is present in the right lung base. The liver is homogeneous and appearance. The gallbladder has been surgically resected. The spleen, pancreas, and adrenal glands are unremarkable. The right kidney is unremarkable. There is a benign-appearing cyst in the left kidney measuring 2.3 cm in size. There is mild left renal lower pole atrophy. The appendix is not visualized on this examination. There is extensive descending and sigmoid diverticulosis without evidence of acute inflammatory change. No mass, adenopathy, or free fluid is noted in the abdomen or pelvis. IMPRESSION: Benign-appearing cyst in the left kidney, measuring 2.3 cm. There is also mild atrophy in the lower pole of the left kidney. Extensive diverticulosis of the descending and sigmoid colon without acute inflammatory change. Prior cholecystectomy. Reviewed, Interpreted and Dictated by Newton Guthrie MD Transcribed by Nury Palafox Authenticated and [facility]
[2024-09-01 09:55] LABS: Blood Urea Nitrogen 17 mg/dl (7-17); Estimated Glomerular Filt Rate 48 ml/min (>60); GFR (African American) 58 ML/MIN (>60)
[2024-09-01] MEDS: SODIUM CHLORIDE 0.9% 10ML SYR (RAD ONLY) 10 ML IV (10:22)
[2024-09-01] MEDS: IOPAMIDOL-370 (76%);100ML BOTTLE 75 ML IV (10:22)
== END 2024-09-01 23:59 | disposition home or self-care (01) ==
LOC: RAD 09:21
PROVIDERS: PCP Family Medicine; Visit Provider Family Medicine
DX: R10.9 Unspecified abdominal pain (principal); N39.0 Urinary tract infection, site not specified; A49.8 Other bacterial infections of unspecified site; K59.09 Other constipation; R14.0 Abdominal distension (gaseous)
CPT/HCPCS: 36415; 74178; 76857; 82565; 84520; Q9967

== ENCOUNTER 2024-09-07 10:47 | Outpatient (CLI) | payer MEDICARE, BC, SELFPAY ==
[2024-09-07 12:15] LABS: Thyroid Stimulating Hormone 1.71 uIU/mL (0.465-4.68)
== END 2024-09-07 23:59 | disposition home or self-care (01) ==
LOC: LAB 10:48
PROVIDERS: PCP Family Medicine; Visit Provider Family Medicine
DX: E03.9 Hypothyroidism, unspecified (principal)
CPT/HCPCS: 36415; 84443

== ENCOUNTER 2024-11-15 07:54 | Outpatient (CLI) | payer MEDICARE, BC, SELFPAY ==
[2024-11-15 10:11] LABS: T4 (Thyroxine) 11.4 ug/dl (5.53-11.0)
[2024-11-15 10:24] LABS: Thyroid Stimulating Hormone 3.55 uIU/mL (0.465-4.68)
[2024-11-15 11:20] LABS: Free Thyroxine Index 3.2 ug/dL (5.93-13.13); Triiodothryronine (T3) Uptake 28 % (23.5-40.5)
--- OUTSIDE RECORDS SUMMARY | 2024-11-17 20:47 | XMS_ITS ---
Author Organization Unknown TREATMENT PLAN [facility] Start Date Provider Encounter for Check-up [phone] [facility]
--- OUTSIDE RECORDS SUMMARY | 2024-11-17 20:48 | XMS_ITS | Data Portability ---
Author Organization [facility] АЛЕКСАНДР [place] [facility] Address [address] [facility] [address] [place] [address] Care Team Providers Care Manager Rn Case Name Role Phone STEPHANIE FUNK Primary Care Provider NAJMA JESUS Tour Driver Assessment No assessment recorded. Plan of Treatment Reminders Order Date Submit Date Provider Last Modified By Organization Details Last Modified Time Details Appointments None recorded. Lab CMP, serum or plasma 2022 023 [facility], [address] [place] [address], [id number], 3 16:23:19 Referral None recorded. Procedures None recorded. Surgeries None recorded. Imaging NM, cardiac blood pool scan, gated equilibriu m, single, w/ wall motion + ejection fraction - MUGA 2022 023 [email or web address] [facility], [address] [facility] , [address], [place], [address], 3 08:23:32 Medication Orders valsartan 40 mg tablet 2023 024 [facility], [address], [id number], 4 11:40:15 Patient TargetsNo targets recorded. Patient Instructions Encounter Date Encounter Id Patient Instructions Last Modified By Organization Details Last Modified Time 02/18/2023 [id number] body mass index: care instructions Not available 02/18/2023 10:09:22 high blood pressure: care instructions Not available 02/18/2023 10:09:23 coronary artery disease: care instructions Not available 02/18/2023 10:13:57 Follow up in 3 months Not available 02/19/2023 16:41:40 06/03/2023 [id number] heart failure: care instructions Not available 06/04/2023 13:10:58 high blood pressure: care instructions Not available 06/03/2023 11:39:19 body mass index: care instructions Not available 06/03/2023 11:39:19 coronary artery disease: care instructions Not available 06/03/2023 11:39:18 carotid stenosis : care instructions Not available 06/04/2023 13:10:58 06/29/2023 [id number] heart failure: care instructions Not available 06/29/2023 11:37:24 high blood pressure: care instructions Not available 06/29/2023 11:37:24 body mass index: care instructions Not available 06/29/2023 11:37:24 coronary artery disease: care instructions Not available 06/29/2023 11:37:24 carotid stenosis : care instructions Not available 06/29/2023 11:37:24 Follow up in 3 months Not available 06/30/2023 13:33:04 03/16/2024 [id number] heart failure: care instructions Not available 03/16/2024 11:38:13 high blood pressure: care instructions Not available 03/16/2024 11:38:14 body mass index: care instructions Not available 03/16/2024 11:38:14 coronary artery disease: care instructions Not available 03/16/2024 11:38:14 carotid stenosis : care instructions Not available 03/16/2024 11:38:13 Reason for Referral None Reported. Results Created Date Observation Date Name Description Value Unit Range Abnormal Flag Note LastModifiedBy Organization Detail LastModifiedTime 06/03/2006/03/2023 COMP. METAB OLIC PANEL glucose 176 mg/dL 74-100 high Not Available [facility] [address] [place] [address], [phone], 06/03/2023 16:23:19 06/03/20 23 06/03/2023 COMP. METAB OLIC PANEL blood urea nitrogen 17 mg/dL 6-20 normal Not Available [facility] [address] [place] [address], [address], 06/03/2023 16:23:19 06/03/20 23 06/03/2023 COMP. METAB OLIC PANEL creatinine 1.15 mg/dL 0.50-0 .95 high Not Available [facility] [address] [place] [address], [address], 06/03/2023 16:23:19 06/03/20 23 06/03/2023 COMP. METAB OLIC PANEL BUN/creatini ne ratio 15 (calc ) 10-20 normal Not Available [facility] [address] [place] [address], [address], 06/03/2023 16:23:19 06/03/20 23 06/03/2023 COMP. METAB OLIC PANEL sodium 141 mmol/ L 136-14 5 normal Not Available [facility] [address] [place] [address], [address], 06/03/2023 16:23:19 06/03/20 23 06/03/2023 COMP. METAB OLIC PANEL potassium 4.7 mmol/ L 3.4-5. 0 normal Not Available [facility] [address] [place] [address], [address], 06/03/2023 16:23:19 06/03/20 23 06/03/2023 COMP. METAB OLIC PANEL chloride 103 mmol/ L 98-107 normal Not Available [facility] [address] [place] [address], [address], 06/03/2023 16:23:19 06/03/20 23 06/03/2023 COMP. METAB OLIC PANEL carbon dioxide 28 mmol/ L 22-31 normal Not Available [facility] [address] [place] [address], [address], 06/03/2023 16:23:19 06/03/20 23 06/03/2023 COMP. METAB OLIC PANEL anion gap 10 (calc ) 7-25 normal Not Available [facility] [address] [place] [address], [address], 06/03/2023 16:23:19 06/03/20 23 06/03/2023 COMP. METAB OLIC PANEL calcium 9.3 mg/dL 8.6-10 .2 normal Not Available [facility] [address] [place] [address], [address], 06/03/2023 16:23:19 06/03/20 23 06/03/2023 COMP. METAB OLIC PANEL total protein 6.9 g/dL 6.4-8. 3 normal Not Available [facility] [address] [place] [address], [address], 06/03/2023 16:23:19 06/03/20 23 06/03/2023 COMP. METAB OLIC PANEL albumin 4.3 g/dL 3.5-5. 2 normal Not Available [facility] [address] [place] [address], [address], 06/03/2023 16:23:19 06/03/20 23 06/03/2023 COMP. METAB OLIC PANEL globulin 2.6 1.5-4. 5 normal Not Available [facility] [address] [place] [address], [address], 06/03/2023 16:23:19 06/03/20 23 06/03/2023 COMP. METAB OLIC PANEL albumin/glob ulin ratio 1.7 (calc ) 1.1-2. 5 normal Not Available [facility] [address] [place] [address], [address], 06/03/2023 16:23:19 06/03/20 23 06/03/2023 COMP. METAB OLIC PANEL bilirubin, total 0.7 mg/dL 0.1-1. 2 normal Not Available [facility] [address] [place] [address], [address], 06/03/2023 16:23:19 06/03/20 23 06/03/2023 COMP. METAB OLIC PANEL alkaline phosphatase 81 U/L 30-121 normal Not Available [facility] [address] [place], [address], 06/03/2023 16:23:19 06/03/20 23 06/03/2023 COMP. METAB OLIC PANEL AST 20 U/L 0-32 normal Not Available [facility] [address] [place] [address], [address], 06/03/2023 16:23:19 06/03/20 23 06/03/2023 COMP. METAB OLIC PANEL ALT 21 U/L 0-33 normal Not Available [facility] [address] [place], [address], 06/03/2023 16:23:19 06/03/20 23 06/03/2023 COMP. METAB OLIC PANEL GFR 49 >= 60 abnormal NOT E New calcu latio n for GFR (CKD- EPI 2020) is formu lated witho ut race adjus tment facto rs at the recom menda tion of the [place] [employer] [facility] [employer]phr ology . This calcu latio n has not been valid ated in pregn ant women . For pedia tric patie nts refer to https ://jessica ivy.brannon tom/nia bolton s/JEREO QI/gf r_cal culat orPed Not Available [facility] [address] [place] [address], [address], 06/03/2023 16:23:19 06/04/2006/03/2023 tolu faustin am No observ ation record ed. BARCODE Not Available 2022 07:40:31 03/17/20 24 03/16/2024 tolu faustin am No observ ation record ed. BARCODE Not Available 2023 08:09:41 Result Notes None recorded. 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 30458174061 07 Active 2016 From [employer];Pro vider: Bev Zamora;Sta tus: Active BEV ZAMORA MD [address] [place] [address], [address] , [facility] 7 08:47:46 Dyslipid emia 447710222 Active 2018 BEV ZAMORA MD [address] [place] [address], [address] [place] [address] , [facility] 9 08:55:43 Disorder of carotid artery 720203087 Active 2018 BEV ZAMORA MD [address] [place] [address], [address] , [facility] 9 08:56:07 EKG: left bundle branch block 092756185 Active 2020 BEV ZAMORA MD [address] [place] [address], [address] [place] [address] , [facility] 1 09:01:45 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 64348410947 07 Completed 201505/28/2017 From [employer];Pro vider: Bev Zamora;Sta tus: Active BEV ZAMORA MD [address] [place] [address], [address] , [facility] 7 08:47:46 Hyperten sive disorder 52832087 Active 2015 From [employer];Pro vider: Bev Zamora;Sta tus: Active Not Available [facility] 6 06:24:48 Old myocardi al infarcti on 7622793 Active 2015 From [employer];Pro vider: Bev Zamora;Sta tus: Active Not Available [facility] 6 06:24:48 Hyperlip idemia 62555223 Completed 201501/13/2019 From [employer];Pro vider: Bev Zamora;Sta tus: Active BEV ZAMORA MD [address] [place] [address], [address] , [facility] 9 08:56:33 Problem Notes Documentation Provider Name and Address Organization Details Recorded Time [facility] ? ? [address] [facility] [address]JEZE, Parma B (id #[id number], : 1945) [facility] [address] [place] Phone:?? Fax:?? Encounter Summary - Progress Note Date Printed: ?02/23/2023 Documents sent via fax will include the following message: This fax may contain sensitive and confidential personal health information that is being sent for the sole use of the intended recipient. Unintended recipients are directed to securely destroy any materials received. You are hereby notified that the unauthorized disclosure or other unlawful use of this fax or any personal health information is prohibited. To the extent patient information contained in this fax is subject to 42 CFR Part 2, this regulation prohibits unauthorized disclosure of these records. If you received this fax in error, please visit [email or web address] to notify the sender and confirm that the information will be destroyed. If you do not have internet access, please call to notify the sender and confirm that the information will be destroyed. Thank you for your attention and cooperation. [ID:[id number]] Patient Juve Jack (78yo, F) #[id number] 1945 ?? Patient Demographics: Address [address] [place] [address] ? Work Phone ?? Encounter Notes: Encounter Reason/DateNone recorded 02/23/2023 - 11:00AM - [facility] Procedure DocumentationNUCLEAR-MUGA RESTING:Referring / Requesting Physician: DEIDRA Liz Physician: CLINICAL DATA: DAVIN Nuclear Medicine Dose: CC PYP: 3 mCi TC 04: 24.5 #22ga in RAC by JANINA Moses Nuclear Tech: PIPER Jackson Interpreting Physician: Dr Linden Ruff Reading Physician Interpretation: 1. Global hypokinesia 2. Ejection fraction 23%. Electronically Signed by: LINDEN RUFF MD NAJMA JESUS, [employer] [address] [place], [address], [facility] 02/25/2023 11:46:05 Procedures Surgical History Date Name Laterality Status Provider Name and Address Organization Details Recorded Time 03/16/20 24 EKG completed NAJMA JESUS, [employer] [address] [place], [address], [facility] 03/16/2024 11:39:21 06/11/20 23 cardiac catheterization completed NAJMA JESUS, [employer] [address] [place], [address], [facility] 06/29/2023 11:32:32 06/03/20 23 EKG completed Ericka Short [facility] 06/03/2023 10:33:11 02/24/20 23 NUCLEAR-MUGA RESTING completed LINDEN RUFF MD [address] [place], [address], [facility] 02/23/2023 11:57:44 10/07/19 23 Echocardiogram completed ARIELLA DANGELO MD [address] [place], [address], [facility] 10/07/2022 16:38:21 10/07/19 23 VAS - Carotid Duplex completed ARIELLA DANGELO MD [address] [place], [address], [facility] 10/07/2022 15:10:35 03/27/20 22 EKG completed FABIOLA RANDALL PA-C [address] [place] [address], [address], [facility] 03/27/2022 10:42:23 10/18/19 22 EKG completed FABIOLA RANDALL PA-C [address] [place] [address], [address], [facility] 10/17/2021 09:48:43 08/14/19 17 EKG completed BEV ZAMORA MD [address] [place] [address], [address], [facility] 08/14/2016 13:27:31 Cardiac Surgery completed [facility] 08/13/2016 12:09:43 Hysterectomy/revise vagina completed [facility] 08/13/2016 12:09:57 Xcapsl ctrc rmvl cplx wo ecp completed [facility] 08/13/2016 12:10:03 Imaging Results Imaging Date Name Status LastModified by Organization Details LastModified Time 06/03/2023 electrocardiogram completed [facility] Informa tion not available 06/04/2023 07:40:31 03/16/2024 electrocardiogram completed [facility] Informa tion not available 03/17/2024 08:09:41 Procedure Notes None recorded. Medical Equipment None Reported. Allergies Allergen ID Allergen Name Allergen Category Reaction Reaction Severity Criticality Documentation Date Start Date Code Code System Note Provider Name and Address Organization Details Recorded Time 714219 Substance with sulfonami de structure and antibacte rial mechanism of action (substanc e) medicatio n edema Not available Not available 07/04/20162007 39061 8003 SNOMED React ion: EDEMA ; Comme nt: Creat ed By: Jeferson Mariano Creat ed Date: 2007 11:08 :23 AM; Not Available [facility] 6 02:42:22 253658 Macrodant in medicatio n edema Not available Not available 07/04/20162007 4 RxNorm React ion: EDEMA ; Comme nt: Creat ed By: Jeferson Domingo; Creat ed Date: 2007 11:08 :57 AM; Not Available [facility] 6 03:08:03 705563 Iodinated contrast media (substanc e) medicatio n Not available Not available Not available 07/04/20162007 05058 2004 SNOMED Comme nt: Creat ed By: Jeferson Domingo; Creat ed Date: 2007 11:09 :04 AM; Not Available [facility] 6 09:39:17 120974 Tylenol medicatio n Not available Not available Not available 07/04/20162007 3 RxNorm Comme nt: incre ases BP;Cr eated By: Jeferson Domingo; Creat ed Date: 2007 11:09 :33 AM; Not Available [facility] 6 09:39:17 957729 Product containin g angiotens in-conver ting enzyme inhibitor (product) medicatio n cough Not available Not available 05/28/2017 27098 009 SNOMED BEV ZAMORA MD [address] [place] [address], [address] [place] [address] 7 09:00:18 Medications Name Sig Start Date Stop Date Status Note LastModified by Organization Details LastModified Time losartan 50 mg tablet Take 1 tablet every day by oral route. 06/04 completed Not Available Not Available Not Available atorvasta tin 40 mg tablet Daily 08/14 completed Frequenc y: daily;Me dication Descript ion: atorvast atin; Route:or al; refills: 0 Not Available Not Available Not Available metformin 500 mg tablet Take 1 tablet every day by oral route. 01/13 completed Not Available Not Available Not Available Saxton Thyroid 90 mg tablet Take 1 tablet every day by oral route. 05/09 completed Not Available Not Available Not Available glipizide ER 10 mg tablet, extended release 24 hr TAKE ONE TABLET BY MOUTH ONCE A DAY active Not Available Not Available No t Available isosorbid e mononitra te ER 30 mg tablet,ex tended release 24 hr Take 1 tablet every day by oral route. 01/28 completed Not Available Not Available Not Available Saxton Thyroid 120 mg tablet Take 1 tablet every day by oral route. active Not Available Not Available No t Available Zyrtec 10 mg tablet Daily 08/14 completed Duration : 10 days;Lc quency: daily;Me dication Descript ion: cetirizi ne; Dosage:1 ; Route:or al; refills: 0; Quantity :30 tablet Not Available Not Available Not Available Plavix 75 mg tablet Take 1 tablet every day by oral route. active Not Available Not Available No t Available isosorbid e mononitra te ER 120 mg tablet,ex tended release 24 hr TAKE ONE TABLET BY MOUTH EVERY MORNING 2022 active Not Available Not Available Not Avai lable isosorbid e mononitra te ER 60 mg tablet,ex tended release 24 hr Take 1 tablet every day by oral route in the morning. 11/08 completed Not Available Not Available Not Available hydrochlo rothiazid e 12.5 mg capsule Daily 05/28 completed Duration : 30 days;Lc quency: daily;Me dication Descript ion: hydrochl orothiaz shirley; Dosage:1 ; Route:or al; refills: 0; Quantity :30 Not Available Not Available Not Available nitroglyc keven 0.4 mg sublingua l tablet DISSOLVE 1 TAB UNDER TONGUE AT ONSET OF CHEST PAIN. REPEAT EVERY 5 MINUTES FOR 3 DOSES IF NEEDED. IF NO RELIEF CALL 911. 2019 active Not Available Not Available Not Avai lable aspirin 81 mg tablet Daily active Duration : 30 days;Lc quency: daily;Me dication Descript ion: aspirin; Dosage:1 ; Route:or al; refills: 0; Quantity :30 tablet Not Available Not Available Not Available losartan 50 mg-hydroc hlorothia zide 12.5 mg tablet TAKE ONE TABLET BY MOUTH ONCE DAILY 06/03 completed Not Available Not Available Not Available Lipitor 10 mg tablet Take 0.5 tablets every day by oral route. 01/28 completed Not Available Not Available Not Available lisinopri l 2.5 mg tablet Take 1 tablet every day by oral route. 05/28 completed Not Available Not Available Not Available atenolol 50 mg tablet Take one tablet daily 2017 active Frequenc y: daily;Me dication Descript ion: atenolol ; Dosage:1 ; Route:or al; refills: 3; Quantity :90 tablet Not Available Not Available Not Available glipizide 5 mg tablet Take 1 tablet every day by oral route. active Not Available Not Available No t Available valsartan 40 mg tablet Take 1 tablet every day by oral route. 2023 active Not Available Not Available Not Avai lable rosuvasta tin 5 mg tablet Take 1 tablet every day by oral route at bedtime. 03/16 completed Not Available Not Available Not Available Vitamin D 1 x week active Not Available Not A vailable Not Available ranolazin e ER 500 mg tablet,ex tended release,1 2 hr TAKE ONE TABLET BY MOUTH 2 TIMES A DAY 2022 active Not Available Not Available Not Avai lable Januvia 50 mg tablet Take 1 tablet every day by oral route. active Not Available Not Available No t Available cetirizin e 10 mg capsule Take every day by oral route. 07/08 completed Not Available Not Available Not Available Farxiga 5 mg tablet Take 1 tablet every day by oral route. 03/16 completed Not Available Not Available Not Available Entresto 24 mg-26 mg tablet Take 1 tablet twice a day by oral route. 03/16 completed Not Available Not Available Not Available Entresto 03/16 completed Lot [id number] 12/03 3 bottles 06/29/23 AW LOT [id number] 04/03 1 bottle 06/29/23 AW Not Available Not Available Not Available Vitals Date Recorded Body height Body mass index (BMI) Body weight Oxygen saturation Oxygen saturation in Arterial blood by Pulse oximetry Heart rate Systolic blood pressure Diastolic blood pressure Provider Name and Address Organization Details Last Updated DateTime 3 152.4 cm 30.4 kg/m2 39496.6 9 g 93 % 93 % 60 /min 122 mm[Hg] 58 mm[Hg] Carissa Swan [facility] 3 09:52:55 Date Recorded Body height Body mass index (BMI) Body weight Heart rate Systolic blood pressure Diastolic blood pressure Provider Name and Address Organization Details Last Updated DateTime 3 152.4 cm 29.3 kg/m2 87878.8 6 g 63 /min 126 mm[Hg] 62 mm[Hg] Ericka Finnegan [facility] 3 10:37:52 Date Recorded Body height Body mass index (BMI) Body weight Heart rate Oxygen saturation Oxygen saturation in Arterial blood by Pulse oximetry Systolic blood pressure Diastolic blood pressure Provider Name and Address Organization Details Last Updated DateTime 3 152.4 cm 29.2 kg/m2 81700.0 6 g 67 /min 98 % 98 % 126 mm[Hg] 64 mm[Hg] Mary Bah [facility] 3 11:13:30 Date Recorded Body height Body mass index (BMI) Body weight Oxygen saturation Oxygen saturation in Arterial blood by Pulse oximetry Heart rate Systolic blood pressure Diastolic blood pressure Provider Name and Address Organization Details Last Updated DateTime 4 152.4 cm 28.3 kg/m2 27097.8 9 g 95 % 95 % 59 /min 126 mm[Hg] 64 mm[Hg] Rebeca Singhjodye ish [facility] 4 10:54:39 Social History Question Answer Notes LastModified by Organizat ion Details LastModified Time Tobacco Smoking Status [facility]2016 12:48:58 What Is Your Level Of Alcohol Consumption? None Information not available 03/27/2022 Do You Or Have You Ever Used E-cigarettes Or Vape? 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 03/16/[email or web address] Information not available 03/16/2024 How Many Children Do You Have? 4 Information not available 08/13/2016 What Is Your Relationship Status? [email or web address] Information not available 05/09/2021 Do You Or Have You Ever Used Smokeless Tobacco? Never Used Smokeless Tobacco [email or web address] Information not available 07/19/2019 How Much Tobacco Do You Smoke? No [email or web address] Information not available 07/19/2019 Do You Use Any Illicit Or Recreational Drugs? No Information not available 03/27/2022 Has Tobacco Cessation Counseling Been Provided? No Information not available 03/27/2022 Have You Recently Traveled Abroad? No [email or web address] Information not available 05/09/2021 Do You Or Have You Ever Used Any Other Forms Of Tobacco Or Nicotine? No Information not available 03/27/2022 Sex: Female Functional Status None recorded. Mental Status None recorded. Family History Relationship Description Onset Age of this Age Resolved Age Notes LastModified by Organization Details LastModified Time Father Heart disease [email or web address] Not available 2016 10:41:28 Mother Heart disease [email or web address] Not available 2016 10:41:33 Medical History Condition Response Diabetes Y Coronary Artery Disease Y Hyperlipidemia Y Heart Disease Cancer Y Stroke Y Hypertension Y Lung Disease Y Gynecological HistoryNo gynecological history recorded. Obstetrics History GPAL:G 0 P 0 0 0 0 Immunizations Vaccine Type Date Status Note Provider Nam e and Address Organization Details Recorded Time COVID-19, mRNA, LNP-S, PF, 100 mcg/0.5mL dose or 50 mcg/0.25mL dose 10/08/2020 completed BEV ZAMORA MD [facility] [place], [address], [facility] 11/08/2020 09:11:45 COVID-19, mRNA, LNP-S, PF, 100 mcg/0.5mL dose or 50 mcg/0.25mL dose 11/01/2020 [facility] 12/13/2020 08:16:17 Past Encounters Encounter ID Performer Location Encounter Start Date Encounter Closed Date Diagnosis/Indication Diagnosis SNOMED-CT Code Diagnosis ICD10 Code Diagnosis Note [id number] BEV ZAMORA MD [facility] [address] [place] [address] 08/14/2016 12:05:43 08/14/2016 13:35:44 Multi vessel coronary artery disease 269762545 I25.10 Patient history of angina pectoris at her activity level.Uncl ear to me exactly wall was done with this patient. She apparently presented for evaluation with discomfort in her right hand which led to cardiac catheteriz ation placement of a stent and asymptomat ic left subclavian and referral for carotid endarterec max of the right carotid artery and asymptomat ic patient. She does not wish to be followed in [place] any further. Hypertensive disorder 38 195756 I10 Medication s reviewed Hyperlipidemia 61784532 E78.5 Disorder o f carotid artery 876455255 I77.9 [id number] BEV ZAMORA MD [facility] [address] [place] [address] 03/05/2017 10:11:55 03/05/2017 13:30:14 Coronary arteriosclerosis in cabazon artery 3982524503 107 I25.10 She experience s episodes of discomfort in her chest associated with a cold sensation in her arms. This occurs 2-3 times a month but she does note that with exertion she gets short of breath and has to stop. Her son is going to try to get a copy of this ED of her catheteriz ation which I requested but has never been sent from [place]. I have added isosorbide mononitrat e with instructio ns into its use. EKG shows NSR with left bundle branch block. Old myocar dial infarction [id number] I25.2 Management of this problem was reviewed with the patient. No changes recommende d, status for this problem is stable at this time. Hypertensive disorder 38 477656 I10 Medication s reviewed Hyperlipidemia 04482616 E78.5 Management of this problem was reviewed with the patient. No changes recommende d, status for this problem is stable at this time. [id number] BEV ZAMORA MD CARDIOLOG Y [address] [place] [address] 05/28/2017 08:25:29 05/28/2017 09:15:18 Old myocardial infarction 5364622 I25.2 No recurrence . Hypertensive disorder 38 806117 I10 Her lisinopril was stopped due to cough and her blood pressures been higher. I advise changing to losartan/H CTZ. Hyperlipidemia 99299955 E78.5 Management of this problem was reviewed with the patient. No changes recommende d, status for this problem is stable at this time. Coronary arteriosclerosis in [place] artery 7692928564 107 I25.118 Angina has been well-contr olled with ISMN and when necessary nitroglyce rin. I advised no change in her current medical regimen. [id number] [place] [address] [place] [address] 01/28/2018 10:03:24 01/28/2018 11:11:22 Old myocardial infarction 8433236 I25.2 No recurrence . Hypertensive disorder 38 573728 I10 She's had no further episodes of cough since I discontinu ed lisinopril . The pressures been controlled on current medical regimen. Hyperlipidemia 14227103 E78.5 Management of this problem was reviewed with the patient. No changes recommende d, status for this problem is stable at this time. Coronary arteriosclerosis in [place] artery 0883683350 107 I25.118 I feel she can tolerate increased dosage of isosorbide mononitrat e.Electron ic prescripti on sent to patient's pharmacy. [id number] [place] [address] [place] [address] 07/08/2018 08:58:19 07/08/2018 11:17:37 Old myocardial infarction 8177970 I25.2 No recurrence . Hypertensive disorder 38 628257 I10 She's had no further episodes of cough since I discontinu ed lisinopril . The pressures been controlled on current medical regimen.Bl ood pressure well controlled Hyperlipidemia 31180708 E78.5 Management of this problem was reviewed with the patient. No changes recommende d, status for this problem is stable at this time. Coronary arteriosclerosis in [place] artery 6051666440 107 I25.118 Class II angina pectoris with rare episodes of chest discomfort . Discomfort always responds rapidly if nitroglyce rin. She feels much improved since initiation of therapy. [id number] [place] [address] [place], [place] [address] 01/13/2019 08:21:43 01/13/2019 09:58:01 Coronary arteriosclerosis in [place] artery 5839124670 107 I25.118 No need for nitroglyce rin or significan t symptoms since last seen. Old myocar dial infarction 1975553 I25.2 No recurrence . Hypertensive disorder 38 455497 I10 She's had no further episodes of cough since I discontinu ed lisinopril . The pressures been controlled on current medical regimen.Bl ood pressure well controlled Disorder o f carotid artery 658464211 I77.9 Patient had CEA at [facility] in the past. This is not been followed. Right carotid bruit is audible with good pulses. I recommende d to the patient that she have a carotid ultrasound performed at home to evaluate. Dyslipidemia 240735202 E 78.5 Most recent testing reviewed. All laboratory measuremen ts in appropriat e parameters on current medical therapy. This was reviewed and discussed with the patient and all questions answered.Radu ascencio history of CAD, LDL goal in this patient his 70s. [id number] BEV ZAMORA MD CARDIOLOG Y [address] [place] [address] 07/19/2019 13:30:32 07/19/2019 14:41:49 Coronary arteriosclerosis in [place] artery 7850606156 107 I25.118 No need for nitroglyce rin or significan t symptoms since last seen. Old myocar dial infarction 4292421 I25.2 No recurrence . Hypertensive disorder 38 737309 I10 She's had no further episodes of cough since I discontinu ed lisinopril . The pressures been controlled on current medical regimen.Bl ood pressure well controlled Disorder o f carotid artery 254750932 I77.9 Management of this problem was reviewed with the patient. No changes recommende d, status for this problem is stable at this time. Dyslipidemia 190497265 E 78.5 Most recent testing reviewed. All laboratory measuremen ts in appropriat e parameters on current medical therapy. This was reviewed and discussed with the patient and all questions answered.Radu silva history of CAD, LDL goal in this patient his 70s. [id number] BEV ZAMORA MD CARDIOLOG Y EAST [address] [place] [address] ,[address] [place] [address] 11/08/2020 08:43:12 11/08/2020 09:46:47 Coronary arteriosclerosis in [place] artery 6255314033 107 I25.118 Worsening anginal threshold. Advised increase of isosorbide mononitrat e and consider ranolazine . Old myocar dial infarction 4051700 I25.2 No recurrence . Hypertensive disorder 38 058983 I10 She's had no further episodes of cough since I discontinu ed lisinopril . The pressures been controlled on current medical regimen.Bl ood pressure well controlled Disorder o f carotid artery 881314296 I77.9 Management of this problem was reviewed with the patient. No changes recommende d, status for this problem is stable at this time. Dyslipidemia 951702301 E 78.5 Most recent testing reviewed. All laboratory measuremen ts in appropriat e parameters on current medical therapy. This was reviewed and discussed with the patient and all questions answered.G iven history of CAD, LDL goal in this patient his 70s. EKG: left bundle branch block 060708221 I44.7 Chronic. Renewal of prescription 009958499 Z76.0 No need for nitroglyce rin or significan t symptoms since last seen. [id number] BEV ZAMORA MD CARDIOLOG Y [address] [place] [place] [address] 12/13/2020 08:07:14 12/13/2020 08:51:02 Coronary arteriosclerosis in [place] artery 8376902773 107 I25.118 Angina now improved to class II with no need for nitroglyce rin. If she has recurrent symptoms, would consider addition of Ranexa. Old myocar dial infarction 8828507 I25.2 No recurrence . Hypertensive disorder 38 682451 I10 She's had no further episodes of cough since I discontinu ed lisinopril . The pressures been controlled on current medical regimen.Bl ood pressure well controlled . Patient monitors blood pressure at home and readings are generally in acceptable parameters . Disorder o f carotid artery 498879284 I77.9 Management of this problem was reviewed with the patient. No changes recommende d, status for this problem is stable at this time. Dyslipidemia 630164935 E 78.5 Most recent testing reviewed. All laboratory measuremen ts in appropriat e parameters on current medical therapy. This was reviewed and discussed with the patient and all questions answered.G ivpaige history of CAD, LDL goal in this patient his 70s. EKG: left bundle branch block 824586703 I44.7 Chronic. [id number] FABIOLA RANDALL PA-C CARDIOLOG Y [address] [place],[address] [place] [address] 05/09/2021 13:32:01 05/09/2021 17:24:42 Coronary arteriosclerosis 22926099 I25.10 cardiac catheteriz ation report from 2016 reviewed and discussed the patient and her son. Patient's anginal symptoms appear stable. Discussed treatment options including pretreatin g chest pain with sublingual nitroglyce rin, increasing Imdur to one and a half tablet daily or adding Ranexa 500 mg twice a day. For now the patient is agreeable to pretreatin g with sublingual nitroglyce rin. For accelerati ng or change in the pattern or chest pain she will notify me otherwise follow back in 4 months. [id number] FABIOLA RANDALL PA-C CARDIOLOG Y [address] [place],[address] [place] [address] 10/17/2021 08:57:59 10/17/2021 12:55:12 Overweight 217972794 E66.3 Hypertensive disorder 38 511196 I10 Blood pressure goals reviewed with the patient ( <140/90) encouraged regular exercise, healthy weight maintenanc e and adherence to low sodium diet (<2gm qd per AHA recommenda tions) Monitor BP's periodical ly at home. Coronary arteriosclerosis 23902058 I25.10 Anginal symptoms have improved with the addition of Ranexa. Patient is unable to tolerate higher doses. We will continue current treatment plan. Patient was also advised okay to use sublingual nitroglyce rin as needed. Follow-up in 6 months [id number] FABIOLA RANDALL PA-C CARDIOLOG Y [address] [place] [place] [address] 03/27/2022 10:10:01 03/27/2022 11:15:33 Overweight 254384587 E66.3 Hypertensive disorder 38 687576 I10 Blood pressure goals reviewed with the patient ( <140/90) encouraged regular exercise, healthy weight maintenanc e and adherence to low sodium diet (<2gm qd per AHA recommenda tions) Monitor BP's periodical ly at home. Coronary arteriosclerosis 23725305 I25.10 Anginal symptoms have improved with the addition of Ranexa. Patient is unable to tolerate higher doses. We will continue current treatment plan. Patient was also advised okay to use sublingual nitroglyce rin as needed. Follow-up in 6 months [id number] NAJMA JESUS APRN CARDIOLOG Y EAST [address] [place] [address] 09/24/2022 09:27:22 09/24/2022 13:21:59 Obese 493288035 E66.9 Discussed importance of maintainin g healthy weight, increasing aerobic exercise. Goal 120-150 min per week. Coronary arteriosclerosis 49964739 I25.10 CAD, RCA PCI 2007, 2011, C 2016 [facility] [employer] REPRESENTATIVE RCA filling via collateral s 45% EF Continue ASA 81mg daily, atenolol 50mg daily, losartan/H CTZ 50-12.5mg daily, ranolazine , statin.Att empt to titrate up ranolazine to 250mg BIDRecheck echocardio gram to reassess LVEF. Hypertensive disorder 38 668538 I10 Stable today. Blood pressure goals reviewed with the patient ( <140/90) encouraged regular exercise, healthy weight maintenanc e and adherence to low sodium diet (<2gm qd per AHA recommenda tions) Monitor BP's periodical ly at home. Carotid ar isa stenosis 85614152 I65.29 s/p Right CEA. Bilat carotid bruits noted on exam.Carot id duplex will be obtained. Hyperlipidemia 50458212 E78.5 Currently on rosuvastat in. Low cholestero l/low fat diet advsied. Left bundl e branch block 81541361 I44.7 Chronic Subclavian artery stenosis 768341884 I70.8 s/p subclavian stent. [id number] ARIELLA DANGELO MD ECHO [facility] [address] [place] [place] [address] 10/07/2022 13:17:12 10/09/2022 08:46:15 Carotid artery stenosis 62844378 I65.29 [id number] ARIELLA DANGELO MD ECHO VASCULAR LAB [address] [facility] [place] [address] 10/07/2022 13:17:36 10/08/2022 04:35:35 Atherosclerosis of coronary artery without angina pectoris 1480415000 58918 I25.10 [id number] NAJMA JESUS APRN CARDIOLOG Y EAST [address] [place] [address] 02/18/2023 09:06:30 02/20/2023 05:03:50 Coronary arteriosclerosis 85595641 I25.10 CAD, RCA PCI 2007, 2011, [facility] 2016 [facility] [employer] SAL[employer] REPRESENTATIVE RCA filling via collateral s 45% EF Continue ASA 81mg daily, atenolol 50mg daily, losartan/H CTZ 50-12.5mg daily, ranolazine , statin.Inc rease ranolazine to BID dosing. Hypertensive disorder 38 236213 I10 Stable today. Blood pressure goals reviewed with the patient ( <140/90) encouraged regular exercise, healthy weight maintenanc e and adherence to low sodium diet (<2gm qd per AHA recommenda tions) Monitor BP's periodical ly at home. Carotid ar isa stenosis 36968789 I65.29 s/p Right CEA. Bilat carotid bruits noted on exam.Carot id duplex will be obtained. Hyperlipidemia 85754857 E78.5 Currently on rosuvastat in. Low cholestero l/low fat diet advsied. Left bundl e branch block 32156730 I44.7 Chronic. Subclavian artery stenosis 943991974 I70.8 s/p subclavian stent. Obese 842613371 E66.9 Discussed importance of maintainin g healthy weight, increasing aerobic exercise. Goal 120-150 min per week. Ischemic d ilated cardiomyopathy due to coronary artery disease 416792118 I25.5 Concentric LVH with abnormal LV function. Asynchrono us LV due to left bundle branch block. LVEF 35??5% noted on Echo 09/2022Revi ewed with Dr. Dangelo who recommende d MUGA scan next office visit. Will arranged today.She is on atenolol and losartan currently. Tolerating well. [id number] LINDEN RUFF MD [facility] [address] [place] [address] 02/23/2023 10:25:04 02/23/2023 13:56:56 [id number] NAJMA JESUS APRN CARDIOLOG Y [address] [place],[address] [place] [address] 06/03/2023 10:09:08 06/04/2023 15:51:43 Overweight 314371359 E66.3 Discussed importance of maintainin g healthy weight, increasing aerobic exercise. Goal 120-150 min per week. Coronary arteriosclerosis 74842944 I25.10 CAD, RCA PCI 2007, 2011, [facility] 2016 [facility] [employer] SAL[employer] REPRESENTATIVE RCA filling via collateral s 45% EF Continue ASA 81mg daily, atenolol 50mg daily, losartan/H CTZ 50-12.5mg daily, ranolazine , statin.Inc rease ranolazine to BID dosing. EF with marked reduction, now down to 23%. Discussed BiV ICD today, she respectful ly declines.D iscussed risk of SCD with reduced LV function, she is aware of risks and notes she will take that risk.She declines stress testing but is agreeable to [facility] This will be arranged to further evaluate coronary anatomy. Hypertensive disorder 38 871451 I10 Stable today. Blood pressure goals reviewed with the patient ( <140/90) encouraged regular exercise, healthy weight maintenanc e and adherence to low sodium diet (<2gm qd per AHA recommenda tions) Monitor BP's periodical ly at home. Carotid ar isa stenosis 40182751 I65.29 s/p Right CEA. Bilat carotid bruits noted on exam.Carot id duplex 09/2022Impr essionBila teral less than 50% stenosis of the internal carotid arteries.> 70% RECA.Mild heterogene ous, irregular plaque noted in bilateral CCAs. Mild calcific plaque noted in left bulb area.The vertebral arteries demonstrat e antegrade flow.There is no evidence of subclavian steal. Hyperlipidemia 46622153 E78.5 Currently on rosuvastat in. Low cholestero l/low fat diet advsied. Left bundl e branch block 61360267 I44.7 Chronic. Subclavian artery stenosis 266140605 I70.8 s/p subclavian stent. Ischemic d ilated cardiomyopathy due to coronary artery disease 608515793 I25.5 Concentric LVH with abnormal LV function. Asynchrono us LV due to left bundle branch block. LVEF 35??5% noted on Echo 09/2022. Muga 02/2023 LVEF 23%See above plan. Heart fail ure with reduced ejection fraction 301648906 I50.9 Transition from ARB to Entresto today.Cont inue with BB, FarxigaRes erve diuretic for as needed use.Class II-III NYHA symptomsDa kirit weight, sodium restrictio n. [id number] NAJMA JESUS APRN CARDIOLOG Y [address] ,[address] [place] [address] 06/29/2023 10:37:57 06/30/2023 13:49:40 Coronary arteriosclerosis 88614169 I25.10 CAD, RCA PCI 2007, 2011, [facility] 2016 [facility] [employer] SAL[employer] REPRESENTATIVE RCA filling via collateral s 45% EF Continue ASA 81mg daily, atenolol 50mg daily, losartan/H CTZ 50-12.5mg daily, ranolazine , statin.Inc rease ranolazine to BID dosing. EF with marked reduction, now down to 23%. Discussed BiV ICD, she respectful ly declines.D iscussed risk of SCD with reduced LV function, she is aware of risks and notes she will take that risk.[facility] 06/11/2023 with no target for PCI.Contin ue medical management Hypertensive disorder 38 792813 I10 Stable today. Blood pressure goals reviewed with the patient ( <140/90) encouraged regular exercise, healthy weight maintenanc e and adherence to low sodium diet (<2gm qd per AHA recommenda tions) Monitor BP's periodical ly at home. Carotid ar isa stenosis 98151358 I65.29 s/p Right CEA.Caroti d duplex 09/2022Impr essionBila teral less than 50% stenosis of the internal carotid arteries.> 70% RECA.Mild heterogene ous, irregular plaque noted in bilateral CCAs. Mild calcific plaque noted in left bulb area.The vertebral arteries demonstrat e antegrade flow.There is no evidence of subclavian steal. Continue ASA, statin. Hyperlipidemia 73152228 E78.5 Currently on rosuvastat in. Low cholestero l/low fat diet advsied. Left bundl e branch block 13375377 I44.7 Chronic. Subclavian artery stenosis 905322829 I70.8 s/p subclavian stent. Ischemic d ilated cardiomyopathy due to coronary artery disease 882142608 I25.5 Concentric LVH with abnormal LV function. Asynchrono us LV due to left bundle branch block. LVEF 35??5% noted on Echo 09/2022. Muga 02/2023 LVEF 23%LCH with marked reduction in LVEF.She has declined ICD as previously documented Heart fail ure with reduced ejection fraction 974114392 I50.9 Continue with BB, Farxiga, Entresto.R eserve diuretic for as needed use.Class II-III NYHA symptoms historical ly, none reported today.Eliazar y weight, sodium restrictio n. Overweight 205500190 E66 .3 Discussed importance of maintainin g healthy weight, increasing aerobic exercise. Goal 120-150 min per week. [id number] NAJMA JESUS APRN CARDIOLOG Y [address] ,[address] [place] [address] 03/16/2024 09:33:31 03/18/2024 15:50:33 Coronary arteriosclerosis 21432717 I25.10 CAD, RCA PCI 2007, 2011, [facility] 2016 [facility] [employer] REPRESENTATIVE RCA filling via collateral s 45% EF Continue ASA 81mg daily, atenolol 50mg daily, losartan/H CTZ 50-12.5mg daily, ranolazine , statin.Inc rease ranolazine to BID dosing. EF with marked reduction, now down to 23%. Discussed BiV ICD, she respectful ly declines, again today.Disc ussed risk of SCD with reduced LV function, she is aware of risks and notes she will take that risk.[facility] 06/11/2023 with no target for PCI.Contin ue medical management Heart fail ure with reduced ejection fraction 026342294 I50.9 Continue with BBFarxiga and Entresto cost prohibitiv eWill start valsartan 40mg dailyReser ve diuretic for as needed use.Class II-III NYHA symptoms historical ly, none reported today.Eliazar y weight, sodium restrictio n. Hypertensive disorder 38 081022 I10 Stable today. Blood pressure goals reviewed with the patient ( <140/90) encouraged regular exercise, healthy weight maintenanc e and adherence to low sodium diet (<2gm qd per AHA recommenda tions) Monitor BP's periodical ly at home. Carotid ar isa stenosis 94876511 I65.29 s/p Right CEA.Caroti d duplex 09/2022Impr essionBila teral less than 50% stenosis of the internal carotid arteries.> 70% RECA.Mild heterogene ous, irregular plaque noted in bilateral CCAs. Mild calcific plaque noted in left bulb area.The vertebral arteries demonstrat e antegrade flow.There is no evidence of subclavian steal. Continue ASA, statin. Hyperlipidemia 38271237 E78.5 Currently on rosuvastat in. Low cholestero l/low fat diet advsied. Left bundl e branch block 22378935 I44.7 Chronic. Subclavian artery stenosis 359957937 I70.8 s/p subclavian stent. Ischemic d ilated cardiomyopathy due to coronary artery disease 065948424 I25.5 Concentric LVH with abnormal LV function. Asynchrono us LV due to left bundle branch block. LVEF 35??5% noted on Echo 09/2022. Muga 02/2023 LVEF 23%LCH with marked reduction in LVEF.She has declined ICD as previously documented Overweight 268731173 E66 .3 Discussed importance of maintainin g healthy weight, increasing aerobic exercise. Goal 120-150 min per week. History of cerebrovascular accident 638544938 Z86.73 01/2024 treatment at [facility] on DAPTEtiolo gy felt to be from severe stenosis of the left ONCOLOGY RADIATION PHYSICIAN Health Concerns Section Related Observation LastModified by Organization Detai ls LastModified Time None Recorded Concern Status LastModified by Organization Details LastModified Time None Recorded Advance Directives Directive None Recorded Payers Encounter Date Sequence Insurance Name Policy Number Policy Lao Covered Member ID Lao Member ID Guarantor Name 02/18/2023 1 [place] [id number] [place] 02/18/2023 2 [id number] [place] [id number] [place] 02/23/2023 1 [place] [id number] [place] 02/23/2023 2 [id number] [id number] [place] 06/03/2023 1 [place] [id number] [place] 06/03/2023 2 [id number] [id number] [place] 06/29/2023 1 [place] [id number] [place] 06/29/2023 2 [id number] [place] [id number] [place] 03/16/2024 1 [place] [id number] [place] 03/16/2024 2 [id number] [place] [id number] [place] Notes Date Note Type Note Provider Name and Address Organization Details Recorded Time 02/18/2023 text/html Pleasant 78-year -old white female who had previously followed with Dr. Zamora, then Fabiola Randall PA-C thereafter. She has coronary artery disease PCI 2007, RCA PCI 2011, chronic LBBB, history of right CEA, subclavian stent. LHC with Dr. Hardwick 2015 c [employer] SAL[employer] REPRESENTATIVE of RCA with good collaterals and 45% EF.Left subclavian stenosis and right carotid stenosis noted. Imdur added for angina related to right coronary [employer] SAL[employer] REPRESENTATIVE. Came in April 2021 with increasing episodes of chest discomfort all activity related. Patient reported no real change in the pattern of her chest discomfort. Added Ranexa and advised patient to use as needed sublingual nitroglycerin. Comes today to review symptoms. She reduced her Ranexa to 500 mg daily. She reports that the Ranexa made her feel unusual . After reducing the dose she was able to tolerate it better. She takes isosorbide and ranolazine. Notes she has not been able to tolerate higher dosing of ranolazine, currently at 250mg daily. Carotid 09/2022ImpressionBila teral less than 50% stenosis of the internal carotid arteries.>70% RECA.Mild heterogeneous, irregular plaque noted in bilateral CCAs. Mild calcific plaque noted in left bulb area.The vertebral arteries demonstrate antegrade flow.There is no evidence of subclavian steal. Echo 09/2022IMPRESSION:1. Concentric LVH with abnormal LV function. Asynchronous LV due to left bundle branch block. LVEF 35??5%2. Grade 1 diastolic dysfunction suggestive of impaired relaxation3. Biatrial enlargement noted4. Mild tricuspid regurgitation. RVSP? 45-50 mmHg suggestive of mild pulmonary hypertension Here today for follow up.Having problems with back, joints. MRI pending.Likes to piddle in her yard, then has to take breaks.No heart failure symptoms are reported. No orthopnea, PND, LE edema.She denies CP. NAJMATanika JESUS, [employer] [address] [place], [address], [facility] 02/19/2023 16:42:38 06/03/2023 text/html Pleasant 78-year -old white female who had previously followed with Dr. Zamora, then Fabiola Randall PA-C thereafter. She has coronary artery disease PCI 2007, RCA PCI 2011, chronic LBBB, history of right CEA, subclavian stent. LHC with Dr. Hardwick 2016 c [employer] SALES REPRESENTATIVE of RCA with good collaterals and 45% EF.Left subclavian stenosis and right carotid stenosis noted. Imdur added for angina related to right coronary [employer] SALES REPRESENTATIVE. Came in April 2021 with increasing episodes of chest discomfort all activity related. Patient reported no real change in the pattern of her chest discomfort. Added Ranexa and advised patient to use as needed sublingual nitroglycerin. Comes today to review symptoms. She reduced her Ranexa to 500 mg daily. She reports that the Ranexa made her feel unusual . After reducing the dose she was able to tolerate it better. She takes isosorbide and ranolazine. Notes she has not been able to tolerate higher dosing of ranolazine, currently at 250mg daily. Carotid 09/2022ImpressionBila teral less than 50% stenosis of the internal carotid arteries.>70% RECA.Mild heterogeneous, irregular plaque noted in bilateral CCAs. Mild calcific plaque noted in left bulb area.The vertebral arteries demonstrate antegrade flow.There is no evidence of subclavian steal. Echo 09/2022IMPRESSION:1. Concentric LVH with abnormal LV function. Asynchronous LV due to left bundle branch block. LVEF 35??5%2. Grade 1 diastolic dysfunction suggestive of impaired relaxation3. Biatrial enlargement noted4. Mild tricuspid regurgitation. RVSP? 45-50 mmHg suggestive of mild pulmonary hypertension Here today for follow up.Muga scan last visit . Global hypokinesia2. Ejection fraction 23%. Discussed findings with patient's son, who was going to discuss with patient and get back to us. Recommendation of defib placement.She notes today she will not have defib. She is willing to undergo LHC to further evaluate arteries given reduced LV function.She has NAYAK.She reports no CP today.No orthopnea, PND.She is sedentary at home. [employer] [address] [place], [address], [facility] 06/04/2023 13:11:15 06/29/2023 text/html Pleasant 78-year -old white female with Hx of coronary artery disease PCI 2007, RCA PCI 2011, chronic LBBB, history of right CEA, subclavian stent. LHC with Dr. Hardwick 2016 c [employer] SAL[employer] REPRESENTATIVE of RCA with good collaterals and 45% EF.Left subclavian stenosis and right carotid stenosis noted. Imdur added for angina related to right coronary [employer] REPRESENTATIVE. Came in April 2021 with increasing episodes of chest discomfort all activity related. Patient reported no real change in the pattern of her chest discomfort. Added Ranexa and advised patient to use as needed sublingual nitroglycerin. Comes today to review symptoms. She reduced her Ranexa to 500 mg daily. She reports that the Ranexa made her feel unusual . After reducing the dose she was able to tolerate it better. She takes isosorbide and ranolazine. Notes she has not been able to tolerate higher dosing of ranolazine, currently at 250mg daily. Carotid 09/2022ImpressionBila teral less than 50% stenosis of the internal carotid arteries.>70% RECA.Mild heterogeneous, irregular plaque noted in bilateral CCAs. Mild calcific plaque noted in left bulb area.The vertebral arteries demonstrate antegrade flow.There is no evidence of subclavian steal. Echo 09/2022IMPRESSION:1. Concentric LVH with abnormal LV function. Asynchronous LV due to left bundle branch block. LVEF 35??5%2. Grade 1 diastolic dysfunction suggestive of impaired relaxation3. Biatrial enlargement noted4. Mild tricuspid regurgitation. RVSP? 45-50 mmHg suggestive of mild pulmonary hypertension Muga scan last visit . Global hypokinesia2. Ejection fraction 23%. Recommendation of defib placement.She has noted she will not have defib on several occasions. Agreeable to [facility] last office visit. She was also transitioned to Entresto at that time. Here today for hospital follow up.[facility] 06/11/2023Impression: 1. 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 LAD and LCx has nonobstructive disease. 30??5% stenosis noted3. Severe global LV dysfunction. LVEF 30+/- 5% She is tolerating the Entresto without difficulty. Switching drug insurance companies in Aug, current company does not cover Entresto. Hoping new insurance in Aug will cover.She has no heart failure symptoms today. Denies SOA/NAYAK, orthopnea, PND.She denies CP, syncope, near-syncope. No palpitations reported. [employer] [address] [place], [id number], [facility] 06/30/2023 13:33:17 03/16/2024 text/html Pleasant 79-year -old white female with Hx of coronary artery disease PCI 2007, RCA PCI 2011, chronic LBBB, history of right CEA, subclavian stent. [facility] with Dr. Hardwick 2016 c [employer] REPRESENTATIVE of RCA with good collaterals and 45% EF.Left subclavian stenosis and right carotid stenosis noted. Imdur added for angina related to right coronary [employer] SAL[employer] REPRESENTATIVE. Came in April 2021 with increasing episodes of chest discomfort all activity related. Patient reported no real change in the pattern of her chest discomfort. Added Ranexa and advised patient to use as needed sublingual nitroglycerin. Comes today to review symptoms. She reduced her Ranexa to 500 mg daily. She reports that the Ranexa made her feel unusual . After reducing the dose she was able to tolerate it better. She takes isosorbide and ranolazine. Notes she has not been able to tolerate higher dosing of ranolazine, currently at 250mg daily. Carotid 09/2022ImpressionBila teral less than 50% stenosis of the internal carotid arteries.>70% RECA.Mild heterogeneous, irregular plaque noted in bilateral CCAs. Mild calcific plaque noted in left bulb area.The vertebral arteries demonstrate antegrade flow.There is no evidence of subclavian steal. Echo 09/2022IMPRESSION:1. Concentric LVH with abnormal LV function. Asynchronous LV due to left bundle branch block. LVEF 35??5%2. Grade 1 diastolic dysfunction suggestive of impaired relaxation3. Biatrial enlargement noted4. Mild tricuspid regurgitation. RVSP? 45-50 mmHg suggestive of mild pulmonary hypertension Muga scan last visit . Global hypokinesia2. Ejection fraction 23%. Recommendation of BLOCK CUBER-D placement.She has noted she will not have BLOCK CUBER-D on several occasions. Agreeable to [facility] last office visit. She was also transitioned to Entresto at that time. Here today for hospital follow up.[facility] 06/11/2023Impression: 1. 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 LAD and LCx has nonobstructive disease. 30??5% stenosis noted3. Severe global LV dysfunction. LVEF 30+/- 5% Here today for follow up.She had acute CVA since last visit here. Went to OSH, was flown to [facility] for treatment.She did not have echo while hospitalized, but PCP sent her for one thereafter d/t dyspnea. [facility] VentricleThe left ventricle is normal size. Left ventricular systolic functionis moderate to severely decreased. There is increased LV wallthickness. Grade 1 diastolic dysfunction is present. There isakinesis of the septal, inferior, inferoseptal, and anteroseptal LVwalls. No left ventricle thrombus noted on this study. LVEF is 30%. She was on entresto, but quit taking and did not get refills.Notes Entresto is cost prohibitive.She is ASA/Plavix She has complaint of YAO at times.Notes the heat of the summer has not helped this year. She reports no orthopnea, PND, syncope, LE edema. Has residual left sided weakness from her CCA.No longer doing PT.She reports no Cp.Notes she has to take deep breaths at times, which seems to help. [employer] [address] [place], [address], [place] [facility] 03/18/2024 13:44:52 OBGyn Episode No OBEpisode recorded.
== END 2024-11-15 23:59 | disposition home or self-care (01) ==
LOC: LAB 07:55
PROVIDERS: PCP Family Medicine; Visit Provider Family Medicine
DX: E03.9 Hypothyroidism, unspecified (principal); R79.89 Other specified abnormal findings of blood chemistry
CPT/HCPCS: 36415; 84436; 84443; 84479

== ENCOUNTER 2024-12-10 08:35 | Outpatient (CLI) | payer MEDICARE, BC, SELFPAY ==
--- OUTSIDE RECORDS SUMMARY | 2024-12-10 08:38 | XMS_ITS | Data Portability ---
Author Organization [facility] АЛЕКСАНДР Petty DALLAS CLOSED Address [address] [place] [address] Care Team Providers Care Rampman Name Role Phone STEPHANIE FUNK Primary Care Provider NAJMA JESUS Morgue Technician Assessment No assessment recorded. Plan of Treatment Reminders Order Date Submit Date Provider Last Modified By Organization Details Last Modified Time Details Appointments None recorded. Lab CMP, serum or plasma 2022 023 [facility], [address] [place] [address], [phone], 3 16:23:19 Referral None recorded. Procedures None recorded. Surgeries None recorded. Imaging NM, cardiac blood pool scan, gated equilibriu m, single, w/ wall motion + ejection fraction - MUGA 2022 023 [email or web address] [facility], [address], [place], [address], 3 08:23:32 Medication Orders valsartan 40 mg tablet 2023 024 [facility], [address], [id number], 4 11:40:15 Patient TargetsNo targets recorded. Patient Instructions Encounter Date Encounter Id Patient Instructions Last Modified By Organization Details Last Modified Time 02/18/2023 [id number] body mass index: care instructions Not available 02/18/2023 10:09:22 high blood pressure: care instructions Not available 02/18/2023 10:09:23 coronary artery disease: care instructions Not available 02/18/2023 10:13:57 Follow up in 3 months Not available 02/19/2023 16:41:40 06/03/2023 [id number] heart failure: care instructions Not available 06/04/2023 13:10:58 high blood pressure: care instructions Not available 06/03/2023 11:39:19 body mass index: care instructions Not available 06/03/2023 11:39:19 coronary artery disease: care instructions Not available 06/03/2023 11:39:18 carotid stenosis : care instructions Not available 06/04/2023 13:10:58 06/29/2023 [id number] heart failure: care instructions Not available 06/29/2023 11:37:24 high blood pressure: care instructions Not available 06/29/2023 11:37:24 body mass index: care instructions Not available 06/29/2023 11:37:24 coronary artery disease: care instructions Not available 06/29/2023 11:37:24 carotid stenosis : care instructions Not available 06/29/2023 11:37:24 Follow up in 3 months Not available 06/30/2023 13:33:04 03/16/2024 [id number] heart failure: care instructions Not available 03/16/2024 [...] glucose 176 mg/dL 74-100 high Not Available [facility] [address] [place] [address], [address], 06/03/2023 16:23:19 06/03/20 23 06/03/2023 COMP. METAB OLIC PANEL blood urea nitrogen 17 mg/dL 6-20 normal Not Available [facility] [address] [place] [address], [address], 06/03/2023 16:23:19 06/03/20 23 06/03/2023 COMP. METAB OLIC PANEL creatinine 1.15 mg/dL 0.50-0 .95 high Not Available [facility] [address] [place] [address], [address], 06/03/2023 16:23:19 06/03/20 23 06/03/2023 COMP. METAB OLIC PANEL BUN/creatini ne ratio 15 (calc ) 10-20 normal Not Available [facility] [address] [place] [address], [address], 06/03/2023 16:23:19 06/03/20 23 06/03/2023 COMP. METAB OLIC PANEL sodium 141 mmol/ L 136-14 5 normal Not Available [facility] [address] [place] [address], [address], 06/03/2023 16:23:19 06/03/20 23 06/03/2023 COMP. METAB OLIC PANEL potassium 4.7 mmol/ L 3.4-5. 0 normal Not Available [facility] [address] [place] [address], [address], 06/03/2023 16:23:19 06/03/20 23 06/03/2023 COMP. METAB OLIC PANEL chloride 103 mmol/ L 98-107 normal Not Available [facility] [address] [place] [address], [address], 06/03/2023 16:23:19 06/03/20 23 06/03/2023 COMP. METAB OLIC PANEL carbon dioxide 28 mmol/ L 22-31 normal Not Available [facility] [address] [place] [address], [address], 06/03/2023 16:23:19 06/03/20 23 06/03/2023 COMP. METAB OLIC PANEL anion gap 10 (calc ) 7-25 normal Not Available [facility] [address] [place] [address], [address], 06/03/2023 16:23:19 06/03/20 23 06/03/2023 COMP. METAB OLIC PANEL calcium 9.3 mg/dL 8.6-10 .2 normal Not Available [facility] [address] [place] [address], [address], 06/03/2023 16:23:19 06/03/20 23 06/03/2023 COMP. METAB OLIC PANEL total protein 6.9 g/dL 6.4-8. 3 normal Not Available [facility] [address] [place] [address], [address], 06/03/2023 16:23:19 06/03/20 23 06/03/2023 COMP. METAB OLIC PANEL albumin 4.3 g/dL 3.5-5. 2 normal Not Available [facility] [address] [place] [address], [address], 06/03/2023 16:23:19 06/03/20 23 06/03/2023 COMP. METAB OLIC PANEL globulin 2.6 1.5-4. 5 normal Not Available [facility] [address] [place] [address], [address], 06/03/2023 16:23:19 06/03/20 23 06/03/2023 COMP. METAB OLIC PANEL albumin/glob ulin ratio 1.7 (calc ) 1.1-2. 5 normal Not Available [facility] [address] [place] [address], [address], 06/03/2023 16:23:19 06/03/20 23 06/03/2023 COMP. METAB OLIC PANEL bilirubin, total 0.7 mg/dL 0.1-1. 2 normal Not Available [facility] [address] [place] [address], [address], 06/03/2023 16:23:19 06/03/20 23 06/03/2023 COMP. METAB OLIC PANEL alkaline phosphatase 81 U/L 30-121 normal Not Available [facility] [address] [place], [address], 06/03/2023 16:23:19 06/03/20 23 06/03/2023 COMP. METAB OLIC PANEL AST 20 U/L 0-32 normal Not Available [facility] [address] [place] [address], [address], 06/03/2023 16:23:19 06/03/20 23 06/03/2023 COMP. METAB OLIC PANEL ALT 21 U/L 0-33 normal Not Available [facility] [address] [place], [address], 06/03/2023 16:23:19 06/03/20 23 06/03/2023 COMP. METAB [...] s/JEREO QI/gf r_cal culat orPed Not Available [facility] [address] [place] [address], [address], 06/03/2023 16:23:19 06/04/2006/03/2023 tolu faustin am No observ ation record ed. BARCODE Not Available 2022 07:40:31 03/17/20 24 03/16/2024 tolu faustin am No observ ation record ed. BARCODE Not Available 2023 08:09:41 Result Notes None recorded. Problems Name Problem SNOMED Code Status Onset Date Resolution Date Notes Provider Name and Address Organization Details Recorded Time Coronary arterios clerosis in [facility] 78484752092 07 Active 2016 From [employer];Pro vider: Bev Zamora;Sta tus: Active BEV ZAMORA MD [address] [place] [address], [address] , [facility] 7 08:47:46 Dyslipid emia 358044032 Active 2018 BEV ZAMORA MD [address] [place] [address], [address] [place] [address] , [facility] 9 08:55:43 Disorder of carotid artery 331703729 Active 2018 BEV ZAMORA MD [address] [place] [address], [address] , [facility] 9 08:56:07 EKG: left bundle branch block 676499531 Active 2020 BEV ZAMORA MD [address] [place] [address], [address] [place] [address] , [facility] 1 09:01:45 Coronary arterios clerosis in 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 ? [address] [facility] [address]KJKI, Par[place] B (id #[id number], : 1945) [facility] [address] [place]?[address] Phone:?? Fax:?? Encounter Summary - Progress Note [...] received this fax in error, please visit [email or web address] to notify the sender and confirm that the information will be destroyed. If you do not have internet access, please call to notify the sender and confirm that the information will be destroyed. Thank you for your attention and cooperation. [ID:[id number]] Patient Juve Jack (78yo, F) #[id number] 1945 ?? Patient Demographics: Address [address] [place] [address] ? Work Phone ?? Encounter Notes: Encounter Reason/DateNone recorded 02/23/2023 - 11:00AM - [facility] Procedure DocumentationNUCLEAR-MUGA RESTING:Referring / Requesting Physician: DEIDRA Liz Physician: CLINICAL DATA: DAVIN Nuclear Medicine Dose: CC PYP: 3 mCi TC 04: 24.5 #22ga in RAC by JANINA Moses Nuclear Tech: PIPER Jackson Interpreting Physician: Dr Linden Ruff Reading Physician Interpretation: 1. Global hypokinesia 2. Ejection fraction 23%. Electronically Signed by: LINDEN RUFF MD NAJMA JESUS, MACHINE CELL TUBER [address] [place], [address], [facility] 02/25/2023 11:46:05 Procedures Surgical History Date Name Laterality Status Provider Name and Address Organization Details Recorded Time 03/16/20 24 EKG completed NAJMA JESUS, MACHINE CELL TUBER [address] [place], [address], [facility] 03/16/2024 11:39:21 06/11/20 23 cardiac catheterization completed NAJMA JESUS, MACHINE CELL TUBER [address] [place], [address], [facility] 06/29/2023 11:32:32 06/03/20 23 EKG completed Ericka Short [facility] 06/03/2023 10:33:11 02/24/20 23 NUCLEAR-MUGA RESTING completed LINDEN RUFF MD [address] [place], [address], [facility] 02/23/2023 11:57:44 10/07/19 23 Echocardiogram completed ARIELLA DANGELO MD [address] [place], [address], [facility] 10/07/2022 16:38:21 10/07/19 23 VAS - Carotid Duplex completed ARIELLA DANGELO MD [address] [place], [address], [facility] 10/07/2022 15:10:35 03/27/20 22 EKG completed FABIOLA RANDALL PA-C [address] [place] [address], [address], [facility] 03/27/2022 10:42:23 10/18/19 22 EKG completed FABIOLA RANDALL PA-C [address] [place] [address], [address], [facility] 10/17/2021 09:48:43 08/14/19 17 EKG completed BEV ZAMORA MD [address] [place] [address], [address], [facility] 08/14/2016 13:27:31 Cardiac Surgery completed [facility] 08/13/2016 12:09:43 Hysterectomy/revise vagina completed [facility] 08/13/2016 12:09:57 Xcapsl ctrc rmvl cplx wo ecp completed [facility] 08/13/2016 12:10:03 Imaging Results Imaging Date Name [...] Name and Address Organization Details Recorded Time 725934 Substance with sulfonami de structure and antibacte rial mechanism of action (substanc e) medicatio n edema Not available Not available 07/04/20162007 38901 8003 SNOMED React ion: EDEMA ; Comme nt: Creat ed By: Jeferson Mariano Creat ed Date: 2007 11:08 :23 AM; Not Available [facility] 6 02:42:22 736017 Macrodant in medicatio n edema Not available Not available 07/04/20162007 4 RxNorm React ion: EDEMA ; Comme nt: Creat ed By: Jeferson Domingo; Creat ed Date: 2007 11:08 :57 AM; Not Available [facility] 6 03:08:03 309655 Iodinated contrast media (substanc e) medicatio n Not available Not available Not available 07/04/20162007 49814 2004 SNOMED Comme nt: Creat ed By: Jeferson Domingo; Creat ed Date: 2007 11:09 :04 AM; Not Available [facility] 6 09:39:17 822508 Tylenol medicatio n Not available Not available Not available 07/04/20162007 3 RxNorm Comme nt: incre ases BP;Cr eated By: Jeferson Domingo; Creat ed Date: 2007 11:09 :33 AM; Not Available [facility] 6 09:39:17 831528 Product containin g angiotens in-conver ting enzyme inhibitor (product) medicatio n cough Not available Not available 05/28/2017 45647 009 SNOMED BEV ZAMORA MD [address] [place] [address], [address] [place] [address] 7 09:00:18 Medications Name Sig Start Date [...] completed Not Available Not Available Not Available Karnack Thyroid 90 mg tablet Take 1 tablet [...] completed Not Available Not Available Not Available [place] Thyroid 120 mg tablet Take 1 tablet [...] Available Not Available [employer] 03/16 completed Lot [id number] P 12/03 3 bottles 06/29/23 AW LOT [id number] P 04/03 1 bottle 06/29/23 AW Not Available Not Available Not Available Vitals Date Recorded Body height Body mass index (BMI) Body weight Oxygen saturation Oxygen saturation in Arterial blood by Pulse oximetry Heart rate Systolic blood pressure Diastolic blood pressure Provider Name and Address Organization Details Last Updated DateTime 3 152.4 cm 30.4 kg/m2 13261.6 9 g 93 % 93 % 60 /min 122 mm[Hg] 58 mm[Hg] Carissa Swan [facility] 3 09:52:55 Date Recorded Body height Body mass index (BMI) Body weight Heart rate Systolic blood pressure Diastolic blood pressure Provider Name and Address Organization Details Last Updated DateTime 3 152.4 cm 29.3 kg/m2 82770.8 6 g 63 /min 126 mm[Hg] 62 mm[Hg] Ericka Finnegan [facility] 3 10:37:52 Date Recorded Body height Body mass index (BMI) Body weight Heart rate Oxygen saturation Oxygen saturation in Arterial blood by Pulse oximetry Systolic blood pressure Diastolic blood pressure Provider Name and Address Organization Details Last Updated DateTime 3 152.4 cm 29.2 kg/m2 41272.0 6 g 67 /min 98 % 98 % 126 mm[Hg] 64 mm[Hg] Mary Bah [facility] 3 11:13:30 Date Recorded Body height Body mass index (BMI) Body weight Oxygen saturation Oxygen saturation in Arterial blood by Pulse oximetry Heart rate Systolic blood pressure Diastolic blood pressure Provider Name and Address Organization Details Last Updated DateTime 4 152.4 cm 28.3 kg/m2 72568.8 9 g 95 % 95 % 59 /min 126 mm[Hg] 64 mm[Hg] Rebeca Singhjodye ish [facility] 4 10:54:39 Social History Question Answer Notes LastModified by Organizat ion Details LastModified Time Tobacco Smoking Status [facility]/14/2016 12:48:58 What Is Your Level Of Alcohol Consumption? None Information not available 03/27/2022 Do You Or Have You Ever Used E-cigarettes Or Vape? 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 03/16/[email or web address] Information not available 03/16/2024 How Many Children Do You Have? 4 Information not available 08/13/2016 What Is Your Relationship Status? [email or web address] Information not available 05/09/2021 Do You Or Have You Ever Used Smokeless Tobacco? Never Used Smokeless Tobacco [email or web address] Information not available 07/19/2019 How Much Tobacco Do You Smoke? No [email or web address] Information not available 07/19/2019 Do You Use Any Illicit Or Recreational Drugs? No Information not available 03/27/2022 Has Tobacco Cessation Counseling Been Provided? No Information not available 03/27/2022 Have You Recently Traveled Abroad? No [email or web address] Information not available 05/09/2021 Do You Or [...] mcg/0.25mL dose 10/08/2020 completed BEV ZAMORA MD [facility] [place], [address], [facility] 11/08/2020 09:11:45 COVID-19, mRNA, LNP-S, PF, 100 mcg/0.5mL dose or 50 mcg/0.25mL dose 11/01/2020 [facility] 12/13/2020 08:16:17 Past Encounters Encounter ID Performer Location Encounter Start Date Encounter Closed Date Diagnosis/Indication Diagnosis SNOMED-CT Code Diagnosis ICD10 Code Diagnosis Note [id number] BEV ZAMORA MD [facility] [address] [place] [address] 08/14/2016 12:05:43 08/14/2016 13:35:44 Multi vessel coronary artery disease 532309451 I25.10 Patient history of angina pectoris at [...] does not wish to be followed in [place] any further. Hypertensive disorder 38 704220 I10 Medication s reviewed Hyperlipidemia 25675048 E78.5 Disorder o f carotid artery 511083658 I77.9 [id number] BEV ZAMORA MD [facility] [address] [place] [address] 03/05/2017 10:11:55 03/05/2017 13:30:[address] [facility] 4545476224 107 I25.10 She experience s episodes of [...] requested but has never been sent from [place]. I have added isosorbide mononitrat e with instructio ns into its use. EKG shows NSR with left bundle branch block. Old myocar dial infarction 1216553 I25.2 Management of this problem was reviewed with the patient. No changes recommende d, status for this problem is stable at this time. Hypertensive disorder 38 004438 I10 Medication s reviewed Hyperlipidemia 85790381 E78.5 Management of this problem was reviewed with the patient. No changes recommende d, status for this problem is stable at this time. [id number] BEV ZAMORA MD [facility] [address] [place] [address] 05/28/2017 08:25:29 05/28/2017 09:15:18 Old myocardial infarction 1130087 I25.2 No recurrence . Hypertensive disorder 38 290919 I10 Her lisinopril was stopped due to cough and her blood pressures been higher. I advise changing to losartan/H CTZ. Hyperlipidemia 52417882 E78.5 Management of this problem was reviewed with the patient. No changes recommende d, status for this problem is stable at this time. Coronary arteriosclerosis in [facility] 2760265628 107 I25.118 Angina has been well-contr olled with ISMN and when necessary nitroglyce rin. I advised no change in her current medical regimen. [id number] [place] [address] [place] [address] 01/28/2018 10:03:24 01/28/2018 11:11:22 Old myocardial infarction 0667006 I25.2 No recurrence . Hypertensive disorder 38 871924 I10 She's had no further episodes of cough since I discontinu ed lisinopril . The pressures been controlled on current medical regimen. Hyperlipidemia 61779640 E78.5 Management of this problem was reviewed with the patient. No changes recommende d, status for this problem is stable at this time. Coronary arteriosclerosis in [facility] 8608726862 107 I25.118 I feel she can tolerate increased dosage of isosorbide mononitrat e.Electron ic prescripti on sent to patient's pharmacy. [id number] [place] [address] [place] [address] 07/08/2018 08:58:19 07/08/2018 11:17:37 Old myocardial infarction 2594694 I25.2 No recurrence . Hypertensive disorder 38 465317 I10 She's had no further episodes of cough since I discontinu ed lisinopril . The pressures been controlled on current medical regimen.Bl ood pressure well controlled Hyperlipidemia 79391641 E78.5 Management of this problem was reviewed with the patient. No changes recommende d, status for this problem is stable at this time. Coronary arteriosclerosis in [facility] 5367483227 107 I25.118 Class II angina pectoris with rare episodes of chest discomfort . Discomfort always responds rapidly if nitroglyce rin. She feels much improved since initiation of therapy. [id number] [place] [address] [place], [place] [address] 01/13/2019 08:21:43 01/13/2019 09:58:[address] [facility] [facility] [place] [facility] 3999385352 107 I25.118 No need for nitroglyce rin or significan t symptoms since last seen. Old myocar dial infarction 1309813 I25.2 No recurrence . Hypertensive disorder 38 779322 I10 She's had no further episodes of cough since I discontinu ed lisinopril . The pressures been controlled on current medical regimen.Bl ood pressure well controlled Disorder o f carotid artery 194892678 I77.9 Patient had CE[facility] at [facility] in the past. This is not been followed. Right carotid bruit is audible with good pulses. I recommende d to the patient that she have a carotid ultrasound performed at home to evaluate. Dyslipidemia 298480452 E 78.5 Most recent testing reviewed. All laboratory measuremen ts in appropriat e parameters on current medical therapy. This was reviewed and discussed with the patient and all questions answered.Radu ascencio history of CAD, LDL goal in this patient his 70s. [id number] BEV ZAMORA MD CARDIOLOG Y [address] [place] [address] 07/19/2019 13:30:32 07/19/2019 14:41:[address] [facility] [place] [facility] 4462268896 107 I25.118 No need for nitroglyce rin or significan t symptoms since last seen. Old myocar dial infarction 1436541 I25.2 No recurrence . Hypertensive disorder 38 567238 I10 She's had no further episodes of cough since I discontinu ed lisinopril . The pressures been controlled on current medical regimen.Bl ood pressure well controlled Disorder o f carotid artery 258987145 I77.9 Management of this problem was reviewed with the patient. No changes recommende d, status for this problem is stable at this time. Dyslipidemia 076377837 E 78.5 Most recent testing reviewed. All laboratory measuremen ts in appropriat e parameters on current medical therapy. This was reviewed and discussed with the patient and all questions answered.Radu silva history of CAD, LDL goal in this patient his 70s. [id number] BEV ZAMORA MD CARDIOLOG Y [place] [address] [place] [address] ,[address] [place] [address] 11/08/2020 08:43:12 11/08/2020 09:46:[address] [facility] [facility] [place] [facility] 2173692432 107 I25.118 Worsening anginal threshold. Advised increase of isosorbide mononitrat e and consider ranolazine . Old myocar dial infarction 8243615 I25.2 No recurrence . Hypertensive disorder 38 885064 I10 She's had no further episodes of cough since I discontinu ed lisinopril . The pressures been controlled on current medical regimen.Bl ood pressure well controlled Disorder o f carotid artery 366817918 I77.9 Management of this problem was reviewed with the patient. No changes recommende d, status for this problem is stable at this time. Dyslipidemia 604378822 E 78.5 Most recent testing reviewed. All laboratory measuremen ts in appropriat e parameters on current medical therapy. This was reviewed and discussed with the patient and all questions answered.G iven history of CAD, LDL goal in this patient his 70s. EKG: left bundle branch block 354174262 I44.7 Chronic. Renewal of prescription 990179646 Z76.0 No need for nitroglyce rin or significan t symptoms since last seen. [id number] BEV ZAMORA MD CARDIOLOG Y [address] [place] [place] [address] 12/13/2020 08:07:14 12/13/2020 08:51:[address] [facility] [place] [facility] 4005455216 107 I25.118 Angina now improved to class II with no need for nitroglyce rin. If she has recurrent symptoms, would consider addition of Ranexa. Old myocar dial infarction 3166202 I25.2 No recurrence . Hypertensive disorder 38 124696 I10 She's had no further episodes of cough since I discontinu ed lisinopril . The pressures been controlled on current medical regimen.Bl ood pressure well controlled . Patient monitors blood pressure at home and readings are generally in acceptable parameters . Disorder o f carotid artery 895222536 I77.9 Management of this problem was reviewed with the patient. No changes recommende d, status for this problem is stable at this time. Dyslipidemia 610820488 E 78.5 Most recent testing reviewed. All laboratory measuremen ts in appropriat e parameters on current medical therapy. This was reviewed and discussed with the patient and all questions answered.G ivpaige history of CAD, LDL goal in this patient his 70s. EKG: left bundle branch block 203450955 I44.7 Chronic. [id number] FABIOLA RANDALL PA-C CARDIOLOG Y [address] [place] [address] 5 05/09/2021 13:32:01 05/09/2021 17:24:42 Coronary arteriosclerosis [id number] I25.10 cardiac catheteriz ation report from 2016 [...] me otherwise follow back in 4 months. [id number] FABIOLA RANDALL PA-C CARDIOLOG Y [address] [place] [address] 10/17/2021 08:57:59 10/17/2021 12:55:12 Overweight 306051022 E66.3 Hypertensive disorder 38 963252 I10 Blood pressure goals reviewed with the patient ( <140/90) encouraged regular exercise, healthy weight maintenanc e and adherence to low sodium diet (<2gm qd per AHA recommenda tions) Monitor BP's periodical ly at home. Coronary arteriosclerosis 21972494 I25.10 Anginal symptoms have improved with the addition of Ranexa. Patient is unable to tolerate higher doses. We will continue current treatment plan. Patient was also advised okay to use sublingual nitroglyce rin as needed. Follow-up in 6 months [id number] FABIOLA RANDALL PA-C CARDIOLOG Y [address] [place] [address] 03/27/2022 10:10:01 03/27/2022 11:15:33 Overweight 816449671 E66.3 Hypertensive disorder 38 303728 I10 Blood pressure goals reviewed with the patient ( <140/90) encouraged regular exercise, healthy weight maintenanc e and adherence to low sodium diet (<2gm qd per AHA recommenda tions) Monitor BP's periodical ly at home. Coronary arteriosclerosis 23459945 I25.10 Anginal symptoms have improved with the addition of Ranexa. Patient is unable to tolerate higher doses. We will continue current treatment plan. Patient was also advised okay to use sublingual nitroglyce rin as needed. Follow-up in 6 months [id number] NAJMA JESUS APRN CARDIOLOG Y EAST [address] [place] [address] 09/24/2022 09:27:22 09/24/2022 13:21:59 Obese 709632414 E66.9 Discussed importance of maintainin g healthy weight, increasing aerobic exercise. Goal 120-150 min per week. 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 Hypertensive disorder 38 367236 I10 Stable today. Blood pressure goals reviewed with the patient ( <140/90) encouraged regular exercise, healthy weight maintenanc e and adherence to low sodium diet (<2gm qd per AHA recommenda tions) Monitor BP's periodical ly at home. Carotid ar isa stenosis 64131622 I65.29 s/p Right CEA. Bilat carotid bruits noted on exam.Carot id duplex will be obtained. Hyperlipidemia 96695196 E78.5 Currently on rosuvastat in. Low cholestero l/low fat diet advsied. Left bundl e branch block 45284660 I44.7 Chronic Subclavian artery stenosis 981474855 I70.8 s/p subclavian stent. [id number] ARIELLA DANGELO MD ECHO VASCULAR LAB [address] [place] [address] 10/07/2022 13:17:12 10/09/2022 08:46:15 Carotid artery stenosis 57701672 I65.29 [id number] ARIELLA DANGELO MD ECHO VASCULAR LAB [address] [facility] [place] [address] 10/07/2022 13:17:36 10/08/2022 04:35:35 Atherosclerosis of coronary artery without angina pectoris [id number] 33517 I25.10 [id number] NAJMA JESUS APRN CARDIOLOG Y [facility] [address] [place] [address] 02/18/2023 09:06:30 02/20/2023 05:03:50 Coronary arteriosclerosis 01668414 I25.10 CAD, RCA PCI 2007, 2011, [facility] 2016 [facility] FILTRATION PLANT OPERATOR RCA filling via collateral s 45% EF Continue ASA 81mg daily, atenolol 50mg daily, losartan/H CTZ 50-12.5mg daily, ranolazine , statin.Inc rease ranolazine to BID dosing. Hypertensive disorder 38 521937 I10 Stable today. Blood pressure goals reviewed with the patient ( <140/90) encouraged regular exercise, healthy weight maintenanc e and adherence to low sodium diet (<2gm qd per AHA recommenda tions) Monitor BP's periodical ly at home. Carotid ar isa stenosis 40106055 I65.29 s/p Right CEA. Bilat carotid bruits noted on exam.Carot id duplex will be obtained. Hyperlipidemia 57412094 E78.5 Currently on rosuvastat in. Low cholestero l/low fat diet advsied. Left bundl e branch block 64146661 I44.7 Chronic. Subclavian artery stenosis 107556068 I70.8 s/p subclavian stent. Obese 972526932 E66.9 Discussed importance of maintainin g healthy weight, increasing aerobic exercise. Goal 120-150 min per week. Ischemic d ilated cardiomyopathy due to coronary artery disease 035545304 I25.5 Concentric LVH with abnormal LV function. Asynchrono us LV due to left bundle branch block. LVEF 35??5% noted on Echo 09/2022Revi ewed with Dr. Dangelo who recommende d MUGA scan next office visit. Will arranged today.She is on atenolol and losartan currently. Tolerating well. [id number] LINDEN RUFF MD [facility] [address] [place] [address] 02/23/2023 10:25:04 02/23/2023 13:56:56 [id number] NAJMA JESUS APRN CARDIOLOG Y [address] [place] [address] 06/03/2023 10:09:08 06/04/2023 15:51:43 Overweight 682629853 E66.3 Discussed importance of maintainin g healthy weight, increasing aerobic exercise. Goal 120-150 min per week. Coronary arteriosclerosis 05793966 I25.10 CAD, RCA PCI 2007, 2011, [facility] 2016 [facility] FIL[employer] PLANT OPERATOR RCA filling via collateral s 45% EF [...] declines stress testing but is agreeable to [facility]. This will be arranged to further evaluate coronary anatomy. Hypertensive disorder 38 914895 I10 Stable today. Blood pressure goals reviewed with the patient ( <140/90) encouraged regular exercise, healthy weight maintenanc e and adherence to low sodium diet (<2gm qd per AHA recommenda tions) Monitor BP's periodical ly at home. Carotid ar isa stenosis 49484050 I65.29 s/p Right CEA. Bilat carotid bruits noted on exam.Carot id duplex 09/2022Impr essionBila teral less than 50% stenosis of the internal carotid arteries.> 70% RECA.Mild heterogene ous, irregular plaque noted in bilateral CCAs. Mild calcific plaque noted in left bulb area.The vertebral arteries demonstrat e antegrade flow.There is no evidence of subclavian steal. Hyperlipidemia 58547737 E78.5 Currently on rosuvastat in. Low cholestero l/low fat diet advsied. Left bundl e branch block 68467339 I44.7 Chronic. Subclavian artery stenosis 874008276 I70.8 s/p subclavian stent. Ischemic d ilated cardiomyopathy due to coronary artery disease 141220666 I25.5 Concentric LVH with abnormal LV function. Asynchrono us LV due to left bundle branch block. LVEF 35??5% noted on Echo 09/2022. Muga 02/2023 LVEF 23%See above plan. Heart fail ure with reduced ejection fraction 610985323 I50.9 Transition from ARB to Entresto today.Cont inue with BB, FarxigaRes erve diuretic for as needed use.Class II-III NYHA symptomsDa kirit weight, sodium restrictio n. [id number] NAJMA JESUS APRN CARDIOLOG Y [address] [place] [address] 06/29/2023 10:37:57 06/30/2023 13:49:40 Coronary arteriosclerosis 00710270 I25.10 CAD, RCA PCI 2007, 2011, [facility] 2016 [facility] FILTRATION PLANT OPERATOR RCA filling via collateral s 45% EF Continue ASA 81mg daily, atenolol 50mg daily, losartan/H CTZ 50-12.5mg daily, ranolazine , statin.Inc rease ranolazine to BID dosing. EF with marked reduction, now down to 23%. Discussed BiV ICD, she respectful ly declines.D iscussed risk of SCD with reduced LV function, she is aware of risks and notes she will take that risk.[facility] 06/11/2023 with no target for PCI.Contin ue medical management Hypertensive disorder 38 861445 I10 Stable today. Blood pressure goals reviewed with the patient ( <140/90) encouraged regular exercise, healthy weight maintenanc e and adherence to low sodium diet (<2gm qd per AHA recommenda tions) Monitor BP's periodical ly at home. Carotid ar isa stenosis 15207573 I65.29 s/p Right CEA.Caroti d duplex 09/2022Impr essionBila teral less than 50% stenosis of the internal carotid arteries.> 70% RECA.Mild heterogene ous, irregular plaque noted in bilateral CCAs. Mild calcific plaque noted in left bulb area.The vertebral arteries demonstrat e antegrade flow.There is no evidence of subclavian steal. Continue ASA, statin. Hyperlipidemia 40045131 E78.5 Currently on rosuvastat in. Low cholestero l/low fat diet advsied. Left bundl e branch block 14272245 I44.7 Chronic. Subclavian artery stenosis 987642716 I70.8 s/p subclavian stent. Ischemic d ilated cardiomyopathy due to coronary artery disease 720226281 I25.5 Concentric LVH with abnormal LV function. Asynchrono us LV due to left bundle branch block. LVEF 35??5% noted on Echo 09/2022. Muga 02/2023 LVEF 23%LCH with marked reduction in LVEF.She has declined ICD as previously documented Heart fail ure with reduced ejection fraction 939744171 I50.9 Continue with BB, Farxiga, Entresto.R eserve diuretic for as needed use.Class II-III NYHA symptoms historical ly, none reported today.Eliazar y weight, sodium restrictio n. Overweight 035846738 E66 .3 Discussed importance of maintainin g healthy weight, increasing aerobic exercise. Goal 120-150 min per week. [id number] NAJMA JESUS APRN CARDIOLOG Y [address] [place] [address] 03/16/2024 09:33:31 03/18/2024 15:50:33 Coronary arteriosclerosis 71650736 I25.10 CAD, RCA PCI 2007, 2011, [facility] 2016 [facility] FIL[employer] PLANT OPERATOR RCA filling via collateral s 45% EF Continue ASA 81mg daily, atenolol 50mg daily, losartan/H CTZ 50-12.5mg daily, ranolazine , statin.Inc rease ranolazine to BID dosing. EF with marked reduction, now down to 23%. Discussed BiV ICD, she respectful ly declines, again today.Disc ussed risk of SCD with reduced LV function, she is aware of risks and notes she will take that risk.[facility] 06/11/2023 with no target for PCI.Contin ue medical management Heart fail ure with reduced ejection fraction 266865752 I50.9 Continue with BBFarxiga and Entresto cost prohibitiv eWill start valsartan 40mg dailyReser ve diuretic for as needed use.Class II-III NYHA symptoms historical ly, none reported today.Eliazar y weight, sodium restrictio n. Hypertensive disorder 38 500740 I10 Stable today. Blood pressure goals reviewed with the patient ( <140/90) encouraged regular exercise, healthy weight maintenanc e and adherence to low sodium diet (<2gm qd per AHA recommenda tions) Monitor BP's periodical ly at home. Carotid ar isa stenosis 56316008 I65.29 s/p Right CEA.Caroti d duplex 09/2022Impr essionBila teral less than 50% stenosis of the internal carotid arteries.> 70% RECA.Mild heterogene ous, irregular plaque noted in bilateral CCAs. Mild calcific plaque noted in left bulb area.The vertebral arteries demonstrat e antegrade flow.There is no evidence of subclavian steal. Continue ASA, statin. Hyperlipidemia 16126209 E78.5 Currently on rosuvastat in. Low cholestero l/low fat diet advsied. Left bundl e branch block 86992583 I44.7 Chronic. Subclavian artery stenosis 555389445 I70.8 s/p subclavian stent. Ischemic d ilated cardiomyopathy due to coronary artery disease 889647346 I25.5 Concentric LVH with abnormal LV function. Asynchrono us LV due to left bundle branch block. LVEF 35??5% noted on Echo 09/2022. Muga 02/2023 LVEF 23%LCH with marked reduction in LVEF.She has declined ICD as previously documented Overweight 498159212 E66 .3 Discussed importance of maintainin g healthy weight, increasing aerobic exercise. Goal 120-150 min per week. History of cerebrovascular accident 926557200 Z86.73 01/2024 treatment at [facility] on DAPTEtiolo gy felt to be from severe stenosis of the left LINE DIRECTOR Health Concerns Section Related Observation LastModified by Organization Detai ls LastModified Time None Recorded Concern Status LastModified by Organization Details LastModified Time None Recorded Advance Directives Directive None Recorded Payers Encounter Date Sequence Insurance Name Policy Number Policy Lao Covered Member ID Lao Member ID Guarantor Name 02/18/2023 1 [place] [id number] [place] 02/18/2023 2 [id number] [place] [id number] [place] 02/23/2023 1 [place] [id number] [place] 02/23/2023 2 [id number] [place] [id number] [place] 06/03/2023 1 [place] [id number] [place] 06/03/2023 2 [id number] [place] [id number] [place] 06/29/2023 1 [place] [id number] [place] 06/29/2023 2 [id number] [place] [id number] [place] 03/16/2024 1 [place] [id number] [place] 03/16/2024 2 [id number] [place] [id number] [place] Notes Date Note Type Note Provider Name and Address Organization Details Recorded Time 02/18/2023 text/html Pleasant 78-year -old white female who had previously followed with Dr. Zamora, then Fabiola Randall PA-C thereafter. She has coronary artery disease PCI 2007, RCA PCI 2011, chronic LBBB, history of right CEA, subclavian stent. LHC with Dr. Hardwick 2015 c FILTRATION PLANT OPERATOR of RCA with good collaterals and 45% EF.Left subclavian stenosis and right carotid stenosis noted. Imdur added for angina related to right coronary FILTRATION PLANT OPERATOR. Came in April 2021 with increasing episodes [...] PND, LE edema.She denies CP. NAJMATanika JESUS, MACHINE CELL TUBER [address] [place], [address], [facility] 02/19/2023 16:42:38 06/03/2023 text/html Pleasant 78-year -old white female who had previously followed with Dr. Zamora, then Fabiola Randall PA-C thereafter. She has coronary artery disease PCI 2007, RCA PCI 2011, chronic LBBB, history of right CEA, subclavian stent. LHC with Dr. Hardwick 2016 c FILTRATION PLANT OPERATOR of RCA with good collaterals and 45% EF.Left subclavian stenosis and right carotid stenosis noted. Imdur added for angina related to right coronary FILTRATION PLANT OPERATOR. Came in April 2021 with increasing episodes [...] PND.She is sedentary at home. NAJMA JESUS, MACHINE CELL TUBER [address] [place], [address], [facility] 06/04/2023 13:11:15 06/29/2023 text/html Pleasant 78-year -old white female with Hx of coronary artery disease PCI 2007, RCA PCI 2011, chronic LBBB, history of right CEA, subclavian stent. LHC with Dr. Hardwick 2016 c FILTRATION PLANT OPERATOR of RCA with good collaterals and 45% EF.Left subclavian stenosis and right carotid stenosis noted. Imdur added for angina related to right coronary FILTRATION PLANT OPERATOR. Came in April 2021 with increasing episodes [...] have defib on several occasions. Agreeable to [facility] last office visit. She was also transitioned to Entresto at that time. Here today for hospital follow up.MERGED WITH [facility] 06/11/2023Impression: 1. FILTRATION PLANT OPERATOR of the RCA with [id number] collaterals2. LAD and LCx has nonobstructive disease. 30??5% stenosis noted3. Severe global LV dysfunction. LVEF 30+/- 5% She is tolerating the Entresto without difficulty. Switching drug insurance companies in Aug, current company does not cover Entresto. Hoping new insurance in Aug will cover.She has no heart failure symptoms today. Denies SOA/NAYAK, orthopnea, PND.She denies CP, syncope, near-syncope. No palpitations reported. NAJMA JESUS, MACHINE CELL TUBER [address] [place], [address], [facility] 06/30/2023 13:33:17 03/16/2024 text/html Pleasant 79-year -old white female with Hx of coronary artery disease PCI 2007, RCA PCI 2011, chronic LBBB, history of right CEA, subclavian stent. [facility] with Dr. Hardwick 2016 c FILTRATION PLANT OPERATOR of RCA with good collaterals and 45% EF.Left subclavian stenosis and right carotid stenosis noted. Imdur added for angina related to right coronary FILTRATION PLANT OPERATOR. Came in April 2021 with increasing episodes [...] Global hypokinesia2. Ejection fraction 23%. Recommendation of AIRCRAFT ACCESSORIES MECHANIC-D placement.She has noted she will not have AIRCRAFT ACCESSORIES MECHANIC-D on several occasions. Agreeable to [facility] last office visit. She was also transitioned to Entresto at that time. Here today for hospital follow up.MERGED WITH [facility] 06/11/2023Impression: 1. FILTRATION PLANT OPERATOR of the RCA with [id number] collaterals2. LAD and LCx has nonobstructive disease. 30??5% stenosis noted3. Severe global LV dysfunction. LVEF 30+/- 5% Here today for follow up.She had acute CVA since last visit here. Went to OSH, was flown to [facility] for treatment.She did not have echo while hospitalized, but PCP sent her for one thereafter d/t dyspnea. Echo [facility] VentricleThe left ventricle is normal size. [...] times, which seems to help. NAJMA JESUS, MACHINE CELL TUBER [address] [place], [address], [place] [facility] 03/18/2024 13:44:52 OBGyn Episode No OBEpisode recorded.
[2024-12-10 10:40] LABS: Hemoglobin A1C 8.7 % (4.0-6.0)
== END 2024-12-10 23:59 | disposition home or self-care (01) ==
PROVIDERS: PCP Family Medicine; Visit Provider Family Medicine
DX: E11.9 Type 2 diabetes mellitus without complications (principal); Z79.84 Long term (current) use of oral hypoglycemic drugs
CPT/HCPCS: 36415; 83036

== ENCOUNTER 2024-12-14 11:20 | Outpatient (CLI) | payer MEDICARE, BC, SELFPAY ==
[2024-12-14 19:07] LABS: Basophils # 0.1 K/mm3 (0-0.2); Basophils % 1.6 % (0.1-2.0); Eosinophils # 0.1 Kmm3 (0.0-0.4); Eosinophils % 2.1 % (0.1-12.0); Hematocrit 41.2 % (37.0-47.0); Immature Granulocytes # 0.02 10^3uL; Immature Granulocytes % 0.3 %; Lymphocytes # 1.4 K/mm3 (0.7-4.5); Lymphocytes % 22.2 % (10-50); Mean Corpuscular Hemoglobin 35.4 pg (27.0-31.2); Monocytes # 0.5 K/mm3 (0.1-1.0); Monocytes % 8.5 % (1.7-9.3); Neutrophils # 4.1 K/mm3 (1.8-7.8); Neutrophils % 65.3 % (37.0-80.0); Nucleated Red Blood Cells # 0 10^3/uL; Nucleated Red Blood Cells % 0 %; Platelet Count 291 K/mm3 (142-424); Red Blood Count 3.96 M/mm3 (4.20-5.40); Red Cell Distribution Width 12.5 % (11.5-17.5); Red Cell Distribution Width-SD 47.5 fL; White Blood Count 6.2 K/mm3 (4.8-10.8)
[2024-12-14 19:30] LABS: Alanine Aminotransferase 21 U/L (12-78); Albumin Level 4.6 g/dl (3.5-5.0); Albumin/Globulin Ratio 2.3 (1.1-1.8); Alkaline Phosphatase 68 U/L (38-126); Anion Gap 11.5 mEq/L (5-15); Aspartate Amino Transferase 28 U/L (14-36); Bilirubin,Total 1.2 mg/dl (0.2-1.3); Blood Urea Nitrogen 16 mg/dl (7-17); Calcium 9.1 mg/dl (8.4-10.2); Carbon Dioxide 29 mmol/L (22.0-30.0); Chloride 101 mmol/L (98-107); Estimated Glomerular Filt Rate 61 ml/min (>60); GFR (African American) 73 ML/MIN (>60); Glucose 202 mg/dl (74-100); Potassium 4.5 mmoL/L (3.5-5.1); Sodium 137 mmol/L (136-145); Total Protein,Serum 6.6 g/dl (6.3-8.2)
[2024-12-14 19:59] LABS: Thyroid Stimulating Hormone 2.25 uIU/mL (0.465-4.68)
[2024-12-14 20:18] LABS: Vitamin B12 805 pg/mL (239-931)
== END 2024-12-14 23:59 | disposition home or self-care (01) ==
LOC: LAB.DROPOF 12-15 08:20
PROVIDERS: PCP Family Medicine; Visit Provider Family Medicine
DX: E03.9 Hypothyroidism, unspecified (principal); I10 Essential (primary) hypertension; R79.89 Other specified abnormal findings of blood chemistry; E11.65 Type 2 diabetes mellitus with hyperglycemia
CPT/HCPCS: 80053; 82607; 84443; 85025

== ENCOUNTER 2025-03-16 14:51 | Outpatient (CLI) | payer MEDICARE, BC, SELFPAY ==
--- OUTSIDE RECORDS SUMMARY | 2025-03-16 14:56 | XMS_ITS | Encounter Summary ---
Author Organization Healthcare Address [address] [place] [address] Care Team Providers Care Billet Header Name Role Phone Taylor Hernandez Primary Care Provider [phone] Jeanine Stewart MD Unavailable Reason for Referral * Consultation (Routine) - Closed Specialty Diagnoses / Procedures Referred By Contac t Referred To Contact Endocrinology Diagnoses Hyperparathyroidism, unspecified (CMS/HCC) Taylor Hernandez PA [address] [place] [address] Phone: tel: fax: [facility] [address] [place] [address] Phone: tel: fax: Referral ID Status Reason Start Date Expiration Date V isits Requested Visits Authorized [id number] Closed Specialty Services Required 05/12/2022 11/11/2023 1 1 Encounter Details Date Type Department Care Team (Late st Contact Info) Description 05/12/2022 Community Orders Community Practice [address] [place] [address] Taylor Hernandez PA [address] [place] [address] Hyperparathyroidism, unspecified (CMS/HCC) (Primary Dx) Social History Tobacco Use Types Packs/Day Years Used Date Smoking Tobacco: Never Assessed Comments Unknown Sex and Gender Information Value Date Recorded Sex Assigned at Not on file Legal Sex Female 6:17 PM EDT Gender Identity Not on file Sexual Orientation Not on file documented as of this encounter Plan of Treatment Scheduled Referrals Name Type Priority Associated Diagnoses Order Schedule Ambulatory referral to Endocrinology Outpatient Referral Routine Hyperparathyroidism , unspecified (CMS/HCC) Expected: 05/12/2022 (Approximate), Expires: 07/12/2022 documented as of this encounter Visit Diagnoses Diagnosis Hyperparathyroidism, unspecified (CMS/HCC)- Primary Hyperparathyroidism, unspecified documented in this encounter Care Teams Billet Header Relationship Specialty Start Date End Date Taylor Hernandez PA [address] [place] [address] PCP - General 12/21/20 Jeanine Stewart MD [address] [place] [id number] Fellow Endocrinology 05/29/22 documented as of this encounter
--- OUTSIDE RECORDS SUMMARY | 2025-03-16 14:56 | XMS_ITS | Clinical Summary ---
Author Organization [facility] Address [address] [place] [address] Care Team Providers Care Supervisor Transferring And Boxing Name Role Phone DavidTaylor GUICHO Primary Care Provider [phone] Jeanine Stewart MD Unavailable [phone] Allergies Active Allergy Reactions Criticality Noted Date Comments Iain Inhibitors Cough Low 05/22/2022 Acetaminophen Other - please docum ent in the comment field,Anxiety Medium 06/18/2008 Cefdinir Hallucinations High 12/23/2023 Chlorhexidine Other - please docum ent in the comment field Low 06/11/2023 Iodinated Contrast Media Other - please document in the comment field High 06/18/2008 Nitrofurantoin Swelling High 06/18/2008 Nitrofurantoin Macrocrystal Swelling High 06/11/20 23 Penicillins Swelling High 01/06/2023 Sulfa Drugs Other - please docum ent in the comment field,Swelling,Hives High 06/18/2008 Medications atenolol (Tenormin) 50 MG tablet Take 1 tablet (50 mg) by mouth 2 (two) times a day. Active fexofenadine (Kelsi) 180 MG tablet Take 1 tablet (180 mg) by mouth 1 (one) time each day. Active glipiZIDE XL 10 MG 24 hr tablet Take 1 tablet (10 mg) by mouth 1 (one) time each day. Do not crush, chew, or split. Active CARBON LAMP CLEANER Thyroid 90 MG tablet Take 1 tablet (90 mg) by mouth 1 (one) time each day. Active isosorbide mononitrate ER (Imdur) 120 MG 24 hr tablet Take 1 tablet (120 mg) by mouth 1 (one) time each day in the morning. Do not crush or chew. Active nitroglycerin (Nitrostat) 0.[address] 1 tablet (0.4 mg) under the tongue every 5 (five) minutes if needed for chest pain. Active traMADol (Ultram) 50 MG tablet Take 1 tablet (50 mg) by mouth 2 (two) times a day if needed (hip pain). Active aspirin 81 MG EC tablet Take 1 tablet (81 mg) by mouth 1 (one) time each day. Active ranolazine (Ranexa) 500 MG 12 hr tablet Take 1 tablet (500 mg) by mouth 2 (two) times a day. Do not crush, chew, or split. Active SITagliptin (Januvia) 100 MG tablet Take 1 tablet (100 mg) by mouth 1 (one) time each day. Active sacubitril-valsa rtan (Entresto) 24-26 MG tablet Take 1 tablet by mouth 2 (two) times a day. Active rosuvastatin (Crestor) 20 MG tablet Take 1 tablet (20 mg) by mouth every night. 30 tablet 3 4 Active triamcinolone (Kenalog) 0.1 % cream 1 (one) time each day. 4 Active nystatin (Mycostatin) 367425 UNIT/ML suspension 1 mL (100,000 Units). 4 Active ergocalciferol 1.25 MG (41924 UT) capsule 3 Active fluconazole (Diflucan) 100 MG tablet TAKE ONE TABLET BY MOUTH EVERY DAY FOR FOURTEEN DAYS 4 Active fluconazole (Diflucan) 150 MG tablet 4 Active furosemide (Lasix) 20 MG tablet Take 1 tablet (20 mg) by mouth 1 (one) time each day. 4 Active levothyroxine (Synthroid, Levoxyl) 100 MCG tablet 4 Active valsartan (Diovan) 40 MG tablet 4 Active Active Problems Problem Noted Date Diagnosed Date Acute ischemic stroke 01/22/2024 Left-sided weakness 01/22/2024 Elevated parathyroid hormone 05/22/2022 Type 2 diabetes mellitus wit h ophthalmic complication, without long-term current use of insulin 05/22/2022 Family History Medical History Relation Name Comments Diabetes Sister Relation Name Status Comments Sister Social History Tobacco Use Types Packs/Day Years Used Date Smoking Tobacco: Never Smokeless Tobacco: Never Tobacco Cessation:Counseling Given: Not Answered Alcohol Use Standard Drinks/Week Comments Never 0 (1 standard drink = 0.6 oz pur e alcohol) Humiliation, Afraid, Rape, a nd Kick questionnaire Answer Date Recorded Within the last year, have y ou been afraid of your partner or ex-partner? Patient unable to answer 01/25/2024 Within the last year, have y ou been humiliated or emotionally abused in other ways by your partner or ex-partner? Patient unable to answer 01/25/2024 Within the last year, have y ou been kicked, hit, slapped, or otherwise physically hurt by your partner or ex-partner? Patient unable to answer 01/25/2024 Within the last year, have y ou been raped or forced to have any kind of sexual activity by your partner or ex-partner? Patient unable to answer 01/25/2024 Social Connection and Isolation Panel Answer Date Recorded In a typical week, how many times do you talk on the phone with family, friends, or neighbors? Patient unable to answer 01/25/2024 How often do you get togethe r with friends or relatives? Patient unable to answer 01/25/2024 How often do you attend [facility] or confucianism services? Patient unable to answer 01/25/2024 Do you belong to any clubs o r organizations such as tenriism groups, unions, fraternal or athletic groups, or school groups? Patient unable to answer 01/25/2024 How often do you attend meet ings of the clubs or organizations you belong to? Patient unable to answer 01/25/2024 Are you , , di vorced, , never , or living with a partner? Patient unable to answer 01/25/2024 AUDIT-C Answer Date Recorded Q1: How often do you have a drink containing alcohol? Patient unable to answer 01/25/2024 Q2: How many drinks containi ng alcohol do you have on a typical day when you are drinking? Patient unable to answer Q3: How often do you have si x or more drinks on one occasion? Patient unable to answer 01/25/2024 [facility] - Occupational Stress Questionnaire Answer Date Recorded Do you feel stress - tense, restless, nervous, or anxious, or unable to sleep at night because your mind is troubled all the time - these days? Patient unable to answer 01/25/2024 Exercise Vital Sign Answer Date Recorde d On average, how many days pe r week do you engage in moderate to strenuous exercise (like a brisk walk)? Patient unable to answer 01/25/2024 Minutes of Exercise per Session Not on file 01/25/2024 Hunger Vital Sign Answer Date Recorded Within the past 12 months, y ou worried that your food would run out before you got the money to buy more. Patient unable to answer 01/25/2024 Within the past 12 months, t he food you bought just didn't last and you didn't have money to get more. Patient unable to answer 01/25/2024 PRAPARE - Transportation Answer Date Re corded In the past 12 months, has l ack of transportation kept you from medical appointments or from getting medications? Patient unable to answer 01/25/2024 In the past 12 months, has l ack of transportation kept you from meetings, work, or from getting things needed for daily living? Patient unable to answer 01/25/2024 Housing Stability Vital Sign Answer [place] Recorded In the last 12 months, was t here a time when you were not able to pay the mortgage or rent on time? Patient unable to answer 01/25/2024 [address] of Places Lived in the Last Year Not on f ile 01/25/2024 In the last 12 months, was t here a time when you did not have a steady place to sleep or slept in a fpc (including now)? Patient unable to answer 01/25/2024 Utilities Answer Date Recorded In the past 12 months has th e [employer], gas, oil, or water company threatened to shut off services in your home? Patient unable to answer 01/25/2024 Comments Unknown Sex and Gender Information Value Date Recorded Sex Assigned at Not on file Legal Sex Female 6:17 PM EDT Gender Identity Not on file Sexual Orientation Not on file Last Filed Vital Signs Vital Sign Reading Time Taken Comments Blood Pressure 128/92 05/27/2024 8:45 AM EDT Pulse 63 05/27/2024 8:45 AM EDT Temperature 37.1 C (98.7 F) 01/25/2024 11:11 AM EDT Respiratory Rate 14 01/25/2024 7:29 AM EDT Oxygen Saturation 90% 05/27/2024 8:45 AM EDT Inhaled Oxygen Concentration - - Weight 66.2 kg (146 lb) 05/27/2024 8:45 AM EDT Height 152.4 cm (5') 05/27/2024 8:45 AM EDT Body Mass Index 28.51 05/27/2024 8:45 AM EDT Plan of Treatment Health Maintenance Due Date Last Done Comments [facility]-Bone Density Scan 1945 [facility]-Depression Screening 1945 [facility]-Hepatitis C Screening 1945 [facility]-Medicare Annual Wellness (AWV) 1945 [facility]-Infant/Child/Adol SDOH Screenings 1945 Diabetes: Dental Exam 01/24/1956 [facility]- SDOH Screenings 01/24/1964 [facility]-Adult SDOH Screenings 01/24/1964 [facility]-DTaP,Tdap,and Td Vaccines (1 - Tdap) 1965 [facility]-Pneumococcal Vaccine: 50+ Years (1 of 2 - PCV) 1965 [facility]-Zoster Vaccines (1 of 2) 01/24/1996 [facility]-RSV Vaccine: 60+ Years or (1 - 1-dose 75+ series) 2021 [facility]-Diabetes: Hemoglobin A1C 04/22/2024 01/22/2024, 05/22/2022 [id number] Vaccine (9 - Moderna risk 2023- season) 2024 04/26/2024, 04/29/2023, 05/02/2022, Additional history exists [facility]-Influenza Vaccine (#1) 2025 [facility]-Obesity Intervention Completed 024, 02/10/2024, 01/21/2024, Additional history exists HPV Vaccines Aged Out No longer eligi ble based on patient's age to complete this topic [facility]-HIB Vaccines Aged Out No longer e ligible based on patient's age to complete this topic [facility]-Hepatitis A Vaccines Aged Out No longer eligible based on patient's age to complete this topic [facility]-IPV Vaccines Aged Out No longer e ligible based on patient's age to complete this topic [facility]-Rotavirus Vaccines Aged Out No lo nger eligible based on patient's age to complete this topic Procedures Procedure Name Priority Date/Time Associated Diagnosis Comments HEMOGLOBIN A1C Routine 01/22/2024 6:19 AM EDT from Last 3 Months or Most Recently Relevant to Health Maintenance Results * (ABNORMAL) Hemoglobin A1c (01/22/2024 6:19 AM EDT) Hemoglobin A1c 7.3(H) <5.7 % 01/22/2024 7:37 AM EDT [facility] Blood Venous blood specimen / Unknown Venipuncture / Unknown 01/22/2024 6:19 AM EDT 01/22/2024 6:33 AM EDT Narrative [facility] - 01/22/2024 7:37 AM EDT HA1C Interpretive Data: Diagnosis of Diabetes: Diabetic > or = 6.5% Pre-diabetic 5.7 to 6.4% Non-diabetic < or = 5.6% Glycemic Targets for Type I and Type II Diabetics: Non- Adults <7.0% Adults <6.0% Children and Adolescents <7.5% Source: [place] [employer]. Standards of medical care in diabetes,2017. Diabetes Care.2017:40 (suppl 1):S1-S135. HbA1c assay performed by an ion-exchange chromatography method that is certified traceable to the DCCT. Katerina Fleming MD LAB BLOOD ORDERABLES Final Resu lt [facility] [address] [place] [address] from Last 3 Months or Most Recently Relevant to Health Maintenance [place] [phone] ANTHEM Advance Directives * Full Code (Latest Code Status on File) Date Activated Date Inactivated Comments 01/22/2024 5:49 AM 01/25/2024 5:02 PM Question Answer Comments Patient has decision-making capacity? Yes Care Teams Supervisor Transferring And Boxing Relationship Specialty Start Date End Date Taylor Hernandez PA [address] [place] [address] PCP - General 12/21/20 Jeanine Stewart MD [address] [place] [id number] Fellow Endocrinology 05/29/22
== END 2025-03-16 23:59 | disposition home or self-care (01) ==
LOC: LAB.DROPOF 14:52
PROVIDERS: PCP Family Medicine; Visit Provider Family Medicine
DX: N39.0 Urinary tract infection, site not specified (principal)
CPT/HCPCS: 87086

== ENCOUNTER 2025-06-16 12:00 | Outpatient (CLI) | payer MEDICARE, BC, SELFPAY ==
[2025-06-16 15:08] LABS: Alanine Aminotransferase 22 U/L (12-78); Albumin Level 3.9 g/dl (3.5-5.0); Albumin/Globulin Ratio 1.4 (1.1-1.8); Alkaline Phosphatase 68 U/L (38-126); Anion Gap 10.8 mEq/L (5-15); Aspartate Amino Transferase 30 U/L (14-36); Bilirubin,Total 1.2 mg/dl (0.2-1.3); Blood Urea Nitrogen 18 mg/dl (7-17); Calcium 9.4 mg/dl (8.4-10.2); Carbon Dioxide 29 mmol/L (22.0-30.0); Chloride 99 mmol/L (98-107); Creatinine,Serum 1.00 mg/dl (0.52-1.04); Estimated Glomerular Filt Rate 53 ml/min (>60); GFR (African American) 65 ML/MIN (>60); Globulin 2.7 g/dL (1.3-3.2); Glucose 268 mg/dl (74-100); Potassium 4.8 mmoL/L (3.5-5.1); Sodium 134 mmol/L (136-145); Total Protein,Serum 6.6 g/dl (6.3-8.2)
[2025-06-16 15:14] LABS: Hemoglobin A1C 8.4 % (4.0-6.0)
[2025-06-16 15:26] LABS: Free Thyroxine Index 3.6 ug/dL (5.93-13.13); T4 (Thyroxine) 11.7 ug/dl (5.53-11.0); Triiodothryronine (T3) Uptake 31 % (23.5-40.5)
[2025-06-16 15:28] LABS: Free T4 (Free Thyroxine) 1.51 ng/dl (0.78-2.19)
[2025-06-16 15:40] LABS: Thyroid Stimulating Hormone 1.35 uIU/mL (0.465-4.68)
[2025-06-16 16:00] LABS: Vitamin B12 683 pg/mL (239-931)
--- OUTSIDE RECORDS SUMMARY | 2025-06-19 12:03 | XMS_ITS | Data Portability ---
Author Organization [facility] АЛЕКСАНДР [place] CLOSED Address [address] [place] [address] Care Team Providers Care Environmental Conservation Officer Name Role Phone STEPHANIE FUNK Primary Care Provider NAJMA JESUS Typing Teacher Assessment No assessment recorded. Plan of Treatment Reminders Order Date Submit Date Provider Last Modified By Organization Details Last Modified Time Details Appointments None recorded. Lab CMP, serum or plasma 2022 023 [facility], [facility] [place], [address], 3 16:23:19 Referral None recorded. Procedures None recorded. Surgeries None recorded. Imaging NM, cardiac blood pool scan, gated equilibriu m, single, w/ wall motion + ejection fraction - MUGA 2022 023 [email or web address] [facility], [address], [place], [address], 3 08:23:32 Medication Orders valsartan 40 mg tablet 2023 024 [facility], [address], [id number], 4 11:40:15 Patient TargetsNo targets recorded. Patient Instructions Encounter Date Encounter Id Patient Instructions Last Modified By Organization Details Last Modified Time 02/18/2023 [id number] body mass index: care instructions Not available 02/18/2023 10:09:22 high blood pressure: care instructions Not available 02/18/2023 10:09:23 coronary artery disease: care instructions Not available 02/18/2023 10:13:57 Follow up in 3 months Not available 02/19/2023 16:41:40 06/03/2023 [id number] heart failure: care instructions Not available 06/04/2023 13:10:58 high blood pressure: care instructions Not available 06/03/2023 11:39:19 body mass index: care instructions Not available 06/03/2023 11:39:19 coronary artery disease: care instructions Not available 06/03/2023 11:39:18 carotid stenosis : care instructions Not available 06/04/2023 13:10:58 06/29/2023 [id number] heart failure: care instructions Not available 06/29/2023 11:37:24 high blood pressure: care instructions Not available 06/29/2023 11:37:24 body mass index: care instructions Not available 06/29/2023 11:37:24 coronary artery disease: care instructions Not available 06/29/2023 11:37:24 carotid stenosis : care instructions Not available 06/29/2023 11:37:24 Follow up in 3 months Not available 06/30/2023 13:33:04 03/16/2024 [id number] heart failure: care instructions Not available 03/16/2024 [...] Abnormal Flag Note LastModifiedBy Organization Detail LastModifiedTime 06/03/202023 COMP. METAB OLIC PANEL glucose 176 mg/dL 74-100 high Not Available [facility] [address] [place] [address], [address], 06/03/2023 16:23:19 06/03/20 23 06/03/2023 COMP. METAB OLIC PANEL blood urea nitrogen 17 mg/dL 6-20 normal Not Available [facility] [address] [place] [address], [address], 06/03/2023 16:23:19 06/03/20 23 06/03/2023 COMP. METAB OLIC PANEL creatinine 1.15 mg/dL 0.50-0 .95 high Not Available [facility] [address] [place] [address], [address], 06/03/2023 16:23:19 06/03/20 23 06/03/2023 COMP. METAB OLIC PANEL BUN/creatini ne ratio 15 (calc ) 10-20 normal Not Available [facility] [address] [place] [address], [address], 06/03/2023 16:23:19 06/03/20 23 06/03/2023 COMP. METAB OLIC PANEL sodium 141 mmol/ L 136-14 5 normal Not Available [facility] [address] [place] [address], [address], 06/03/2023 16:23:19 06/03/20 23 06/03/2023 COMP. METAB OLIC PANEL potassium 4.7 mmol/ L 3.4-5. 0 normal Not Available [facility] [address] [place] [address], [address], 06/03/2023 16:23:19 06/03/20 23 06/03/2023 COMP. METAB OLIC PANEL chloride 103 mmol/ L 98-107 normal Not Available [facility] [address] [place] [address], [address], 06/03/2023 16:23:19 06/03/20 23 06/03/2023 COMP. METAB OLIC PANEL carbon dioxide 28 mmol/ L 22-31 normal Not Available [facility] [address] [place] [address], [address], 06/03/2023 16:23:19 06/03/20 23 06/03/2023 COMP. METAB OLIC PANEL anion gap 10 (calc ) 7-25 normal Not Available [facility] [address] [place] [address], [address], 06/03/2023 16:23:19 06/03/20 23 06/03/2023 COMP. METAB OLIC PANEL calcium 9.3 mg/dL 8.6-10 .2 normal Not Available [facility] [address] [place] [address], [address], 06/03/2023 16:23:19 06/03/20 23 06/03/2023 COMP. METAB OLIC PANEL total protein 6.9 g/dL 6.4-8. 3 normal Not Available [facility] [address] [place] [address], [address], 06/03/2023 16:23:19 06/03/20 23 06/03/2023 COMP. METAB OLIC PANEL albumin 4.3 g/dL 3.5-5. 2 normal Not Available [facility] [address] [place] [address], [address], 06/03/2023 16:23:19 06/03/20 23 06/03/2023 COMP. METAB OLIC PANEL globulin 2.6 1.5-4. 5 normal Not Available [facility] [address] [place] [address], [address], 06/03/2023 16:23:19 06/03/20 23 06/03/2023 COMP. METAB OLIC PANEL albumin/glob ulin ratio 1.7 (calc ) 1.1-2. 5 normal Not Available [facility] [address] [place] [address], [address], 06/03/2023 16:23:19 06/03/20 23 06/03/2023 COMP. METAB OLIC PANEL bilirubin, total 0.7 mg/dL 0.1-1. 2 normal Not Available [facility] [address] [place], [address], 06/03/2023 16:23:19 06/03/20 23 06/03/2023 COMP. METAB OLIC PANEL alkaline phosphatase 81 U/L 30-121 normal Not Available [facility] [address] [place], [address], 06/03/2023 16:23:19 06/03/20 23 06/03/2023 COMP. METAB OLIC PANEL AST 20 U/L 0-32 normal Not Available [facility] [address] [place] [address], [address], 06/03/2023 16:23:19 06/03/20 23 06/03/2023 COMP. METAB OLIC PANEL ALT 21 U/L 0-33 normal Not Available [facility] [address] [place], [address], 06/03/2023 16:23:19 06/03/20 23 06/03/2023 COMP. METAB OLIC PANEL GFR 49 >= 60 abnormal NOT E New calcu latio n for GFR (CKD- EPI 2020) is formu lated witho ut race adjus tment facto rs at the recom menda tion of the [place] [employer] and Ameri can Socie ty of Nephr ology . This calcu latio n has not been valid ated in pregn ant women . For pedia zaynab armendarize nts refer to https ://jessica ivy.brannon tom/nia bolton s/NANCY QI/gf r_cal culat orPed Not Available [facility] [address] [place], [address], 06/03/2023 16:23:19 06/04/2006/03/2023 elect rock faustin am No observ ation record ed. BARCODE Not Available 2022 07:40:31 03/17/20 24 03/16/2024 elect rock diogr am No observ ation record ed. BARCODE Not Available 2023 08:09:41 Result Notes None recorded. 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 0941871 Active 2015 From Automate d Load;Pro vider: Bev Zamora;Sta tus: Active Not Available [facility] 6 06:24:48 Hyperlip idemia 96582065 Completed 201501/13/2019 From Automate d Load;Pro vider: Bev Zamora;Sta tus: Active BEV ZAMORA MD [address] [place] [address], [address] , [facility] 9 08:56:33 Coronary arterios clerosis in [place] artery 78619660269 07 Active 2016 From Automate d Load;Pro vider: Bev Zamora;Sta tus: Active BEV ZAMORA MD [address] [place] [address], [address] , [facility] 7 08:47:46 Dyslipid emia 703565361 Active 2018 BEV ZAMORA MD [address] [place] [address], [address] , [facility] 9 08:55:43 Disorder of carotid artery 006041098 Active 2018 BEV ZAMORA MD [address] [place], [address] , [facility] 9 08:56:07 EKG: left bundle branch block 628850804 Active 2020 BEV ZAMORA MD [address] [place] [address] [place], [address] , [facility] 1 09:01:45 Problem Notes Documentation Provider Name and Address Organization Details Recorded Time [place] [address] [address] [facility] [address]WTPB, [place] B (id #[id number], : 1945) [place] [address] [place] [address] Encounter Summary - Progress Note Date Printed: 02/23/2023 Documents sent via fax will include the [...] received this fax in error, please visit [email or web address] to notify the sender and confirm that the information will be destroyed. If you do not have internet access, please call to notify the sender and confirm that the information will be destroyed. Thank you for your attention and cooperation. [ID:[id number]] Patient Juve Jack (78yo, F) #[id number] 1945 Patient Demographics: Address [address] [place] [address] Work Phone Encounter Notes: Encounter Reason/DateNone recorded 02/23/2023 - 11:00AM - [facility] Procedure DocumentationNUCLEAR-MUGA RESTING:Referring / Requesting Physician: DEIDRA Liz Physician: CLINICAL DATA: DAVIN Nuclear Medicine Dose: CC PYP: 3 mCi TC 04: 24.5 #22ga in RAC by JANINA Moses Nuclear Tech: DONN JacksonMT Interpreting Physician: Dr Linden Ruff Reading Physician Interpretation: 1. Global hypokinesia 2. Ejection fraction 23%. Electronically Signed by: LINDEN RUFF MD NAJMA JESUS APRN [address] [place], [address], [facility] 02/25/2023 11:46:05 Procedures Surgical History Date Name Laterality Status Provider Name and Address Organization Details Recorded Time 03/16/20 24 EKG completed NAJMA JESUS APRN [address] [place], [address], [facility] 03/16/2024 11:39:21 06/11/20 23 cardiac catheterization completed NAJMA JESUS APRN [address] [place], [address], [facility] 06/29/2023 11:32:32 06/03/20 23 EKG completed Ericka Short [facility] 06/03/2023 10:33:11 02/24/20 23 NUCLEAR-MUGA RESTING completed LINDEN RUFF MD [address] [place], [address], [facility] 02/23/2023 11:57:44 10/07/19 23 Echocardiogram completed ARIELLA DANGELO MD [address] [place], [address], [facility] 10/07/2022 16:38:21 10/07/19 23 VAS - Carotid Duplex completed ARIELLA DANGELO MD [address] [place], [address], [facility] 10/07/2022 15:10:35 03/27/20 22 EKG completed FABIOLA RANDALL PA-C [address] [place], [address], [facility] 03/27/2022 10:42:23 10/18/19 22 EKG completed FABIOLA RANDALL PA-C [address] [place], [address], [facility] 10/17/2021 09:48:43 08/14/19 17 EKG completed BEV ZAMORA MD [address] [place], [address], [facility] 08/14/2016 13:27:31 Cardiac Surgery completed [facility] 08/13/2016 12:09:43 Hysterectomy/revise vagina completed [facility] 08/13/2016 12:09:57 Xcapsl ctrc rmvl cplx wo ecp completed [facility] 08/13/2016 12:10:03 Imaging Results None recorded. Procedure Notes None recorded. Medical Equipment None Reported. Allergies Allergen ID Allergen Name Allergen Category Reaction Reaction Severity Criticality Documentation Date Start Date Code Code System Note Provider Name and Address Organization Details Recorded Time 416583 Substance with sulfonami de structure and antibacte rial mechanism of action (substanc e) medicatio n edema Not available Not available 07/04/20162007 88175 8003 SNOMED React ion: EDEMA ; Comme nt: Creat ed By: Jeferson Mariano Creat ed Date: 2007 11:08 :23 AM; Not Available [facility] 6 02:42:22 076951 Macrodant in medicatio n edema Not available Not available 07/04/20162007 22903 4 RxNorm React ion: EDEMA ; Comme nt: Creat ed By: Jeferson Mariano Creat ed Date: 2007 11:08 :57 AM; Not Available [facility] 6 03:08:03 859090 Iodinated contrast media (substanc e) medicatio n Not available Not available Not available 07/04/20162007 93489 2004 SNOMED Comme nt: Creat ed By: Jeferson Domingo; Creat ed Date: 2007 11:09 :04 AM; Not Available [facility] 6 09:39:17 551065 Tylenol medicatio n Not available Not available Not available 07/04/2016200743 3 RxNorm Comme nt: incre ases BP;Cr eated By: Jeferson Domingo; Creat ed Date: 2007 11:09 :33 AM; Not Available [facility] 6 09:39:17 719448 Product containin g angiotens in-conver ting enzyme inhibitor (product) medicatio n cough Not available Not available 05/28/2017 57861 009 SNOMED BEV ZAMORA MD [address] [place] [address], [address] [place] [address] 7 09:00:18 Medications Name Sig Start Date [...] completed Not Available Not Available Not Available [place] Thyroid 90 mg tablet Take 1 tablet [...] completed Not Available Not Available Not Available [place] Thyroid 120 mg tablet Take 1 tablet [...] TABLET BY MOUTH 2 TIMES A DAY active Not Available Not Available No t Available Januvia 50 mg tablet Take 1 tablet [...] Available Not Available Entresto 03/16 completed Lot [id number] P 12/03 3 bottles 06/29/23 AW LOT [id number] P 04/03 1 bottle 06/29/23 AW Not Available Not Available Not Available Vitals Date Recorded Body height Body mass index (BMI) Body weight Oxygen saturation Oxygen saturation in Arterial blood by Pulse oximetry Heart rate Systolic And Diastolic Provider Name and Address Organization Details Last Updated DateTime 3 152.4 cm 30.4 kg/m2 80727.6 9 g 93 % 93 % 60 /min 122/58 mm[Hg] Carissa Swan [facility] 3 09:52:55 Date Recorded Body height Body mass index (BMI) Body weight Oxygen saturation Oxygen saturation in Arterial blood by Pulse oximetry Heart rate Systolic And Diastolic Provider Name and Address Organization Details Last Updated DateTime 4 152.4 cm 28.3 kg/m2 53753.8 9 g 95 % 95 % 59 /min 126/64 mm[Hg] Rebeca deng [facility] 4 10:54:39 Date Recorded Body height Body mass index (BMI) Body weight Heart rate Systolic And Diastolic Provider Name and Address Organization Details Last Updated DateTime 06/03/2023 152.4 cm 29.3 kg/m2 75964.86 g 63 /min 126/62 mm[Hg] Ericka Finnegan [facility] 06/03/2023 10:37:52 Date Recorded Body height Body mass index (BMI) Body weight Heart rate Oxygen saturation Oxygen saturation in Arterial blood by Pulse oximetry Systolic And Diastolic Provider Name and Address Organization Details Last Updated DateTime 3 152.4 cm 29.2 kg/m2 88113.0 6 g 67 /min 98 % 98 % 126/64 mm[Hg] Mary Bah [facility] 3 11:13:30 Social History Question Answer Notes LastModified by [employer] Details LastModified Time Tobacco Smoking Status Former Smoker quit 2010 Mahnazgagan Egn [facility] 08/14/2016 12:48:58 Marital Status Informatio n not available 08/13/2016 What Was The Date Of Your Most Recent Tobacco Screening? 03/16/[email or web address] Information not available 03/16/2024 How Many Children Do You Have? 4 Information not available 08/13/2016 What Is Your Relationship Status? [email or web address] Information not available 05/09/2021 How Much Tobacco Do You Smoke? No [email or web address] Information not available 07/19/2019 Has Tobacco Cessation Counseling Been Provided? No Information not available 03/27/2022 Have You Recently Traveled Abroad? No [email or web address] Information not available 05/09/2021 Sex: Female Functional Status Question Answer Note LastModified by [employer] Details LastModified Time Do you use any illicit or recreational drugs? No Information not available 03/27/2022 Do you or have you ever used any other forms of tobacco or nicotine? No Information not available 03/27/2022 What is your level of alcohol consumption? None Information not available 03/27/2022 Do you or have you ever used smokeless tobacco? 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 Never used electronic cigarettes [email or web address] Information not available 07/19/2019 Mental Status None recorded. Family History Relationship Description Onset Age of this Age Resolved Age Notes LastModified by Organization Details LastModified Time Father Heart disease [email or web address] Not available 2016 10:41:28 Mother Heart disease [email or web address] Not available 2016 10:41:33 Medical History Condition Response Coronary Artery Disease Y Cancer Y Stroke Y Lung Disease Y Diabetes Y Hyperlipidemia Y Heart Disease Hypertension Y Gynecological HistoryNo gynecological history recorded. Obstetrics History GPAL:G 0 P 0 0 0 0 Immunizations Vaccine Type Date Status Note Provider Nam e and Address Organization Details Recorded Time COVID-19, mRNA, LNP-S, PF, 100 mcg/0.5mL dose or 50 mcg/0.25mL dose 10/08/2020 completed BEV ZAMORA MD [address] [place], [address], [facility] 11/08/2020 09:11:45 COVID-19, mRNA, LNP-S, PF, 100 mcg/0.5mL dose or 50 mcg/0.25mL dose 11/01/2020 completed Ericka Finnegan [facility] 12/13/2020 08:16:17 Past Encounters Encounter ID Performer Location Encounter Start Date Encounter Closed Date Diagnosis/Indication Diagnosis SNOMED-CT Code Diagnosis ICD10 Code Diagnosis IMO Codes Diagnosis Note [id number] BEV ZAMORA MD CARDIOLOG Y [address] [place] [address] 08/14/2016 12:05:43 08/14/2016 13:35:44 Multi vessel coronary artery disease 458883771 I25.10 Patient history of angina pectoris at her activity level.[facility] ear to me exactly wall was done with this patient. She apparently presented for evaluation with discomfort in her right hand which led to cardiac catheteriz ation placement of a stent and asymptomat ic left subclavian and referral for carotid endarterec max of the right carotid artery and asymptomat ic patient. She does not wish to be followed in [place] any further. Hypertensive disorder 38 096282 I10 Medication s reviewed Hyperlipidemia 51912679 E78.5 Disorder o f carotid artery 807389964 I77.9 [id number] BEV ZAMORA MD CARDIOLOG Y [address] [place] [address] 03/05/2017 10:11:55 03/05/2017 13:30:14 Coronary arteriosclerosis in [place] artery 9322313009 107 I25.10 She experience s episodes of [...] requested but has never been sent from [place]. I have added isosorbide mononitrat e with instructio shahbaz into its use. EKG shows NSR with left bundle branch block. Old myocar dial infarction 2888357 I25.2 Management of this problem was reviewed with the patient. No changes recommende d, status for this problem is stable at this time. Hypertensive disorder 38 365140 I10 Medication s reviewed Hyperlipidemia 42517164 E78.5 Management of this problem was reviewed with the patient. No changes recommende d, status for this problem is stable at this time. [id number] BEV ZAMORA MD CARDIOLOG Y [address] [place] [address] 05/28/2017 08:25:29 05/28/2017 09:15:18 Old myocardial infarction 6042839 I25.2 No recurrence . Hypertensive disorder 38 868789 I10 Her lisinopril was stopped due to cough and her blood pressures been higher. I advise changing to losartan/H CTZ. Hyperlipidemia 98891090 E78.5 Management of this problem was reviewed with the patient. No changes recommende d, status for this problem is stable at this time. Coronary arteriosclerosis in [place] artery 2757194814 107 I25.118 Angina has been well-contr olled with ISMN and when necessary nitroglyce rin. I advised no change in her current medical regimen. [id number] BEV ZAMORA MD CARDIOLOG Y [address] [place] [address] 01/28/2018 10:03:24 01/28/2018 11:11:22 Old myocardial infarction 9859035 I25.2 No recurrence . Hypertensive disorder 38 079607 I10 She's had no further episodes of cough since I discontinu ed lisinopril . The pressures been controlled on current medical regimen. Hyperlipidemia 03983280 E78.5 Management of this problem was reviewed with the patient. No changes recommende d, status for this problem is stable at this time. Coronary arteriosclerosis in [place] artery 4206740017 107 I25.118 I feel she can tolerate increased dosage of isosorbide mononitrat e.Electron ic prescripti on sent to patient's pharmacy. [id number] BEV ZAMORA MD CARDIOLOG Y [address] [place] [address] 07/08/2018 08:58:19 07/08/2018 11:17:37 Old myocardial infarction 9276435 I25.2 No recurrence . Hypertensive disorder 38 253983 I10 She's had no further episodes of cough since I discontinu ed lisinopril . The pressures been controlled on current medical regimen.Bl ood pressure well controlled Hyperlipidemia 25119662 E78.5 Management of this problem was reviewed with the patient. No changes recommende d, status for this problem is stable at this time. Coronary arteriosclerosis in [place] artery 1793959160 107 I25.118 Class II angina pectoris with rare episodes of chest discomfort . Discomfort always responds rapidly if nitroglyce rin. She feels much improved since initiation of therapy. [id number] BEV ZAMORA MD CARDIOLOG Y [address] [place] [address] 01/13/2019 08:21:43 01/13/2019 09:58:01 Coronary arteriosclerosis in [place] artery 8842337883 107 I25.118 No need for nitroglyce rin or significan t symptoms since last seen. Old myocar dial infarction 1453447 I25.2 No recurrence . Hypertensive disorder 38 872432 I10 She's had no further episodes of cough since I discontinu ed lisinopril . The pressures been controlled on current medical regimen.Bl ood pressure well controlled Disorder o f carotid artery 866715568 I77.9 Patient had CEA at [facility] in the past. This is not been followed. Right carotid bruit is audible with good pulses. I recommende d to the patient that she have a carotid ultrasound performed at home to evaluate. Dyslipidemia 345982918 E 78.5 Most recent testing reviewed. All laboratory measuremen ts in appropriat e parameters on current medical therapy. This was reviewed and discussed with the patient and all questions answered.G iven history of CAD, LDL goal in this patient his 70s. [id number] BEV ZAMORA MD CARDIOLOG Y [address] [place] [address] 07/19/2019 13:30:32 07/19/2019 14:41:49 Coronary arteriosclerosis in [place] artery 8045996113 107 I25.118 No need for nitroglyce rin or significan t symptoms since last seen. Old myocar dial infarction 5010656 I25.2 No recurrence . Hypertensive disorder 38 093149 I10 She's had no further episodes of cough since I discontinu ed lisinopril . The pressures been controlled on current medical regimen.Bl ood pressure well controlled Disorder o f carotid artery 821183706 I77.9 Management of this problem was reviewed with the patient. No changes recommende d, status for this problem is stable at this time. Dyslipidemia 622635769 E 78.5 Most recent testing reviewed. All laboratory measuremen ts in appropriat e parameters on current medical therapy. This was reviewed and discussed with the patient and all questions answered.G iven history of CAD, LDL goal in this patient his 70s. [id number] BEV ZAMORA MD CARDIOLOG Y [address] [facility] [place] [address] 11/08/2020 08:43:12 11/08/2020 09:46:47 Coronary arteriosclerosis in [place] artery 7002612592 107 I25.118 Worsening anginal threshold. Advised increase of isosorbide mononitrat e and consider ranolazine . Old myocar dial infarction 6116590 I25.2 No recurrence . Hypertensive disorder 38 492584 I10 She's had no further episodes of cough since I discontinu ed lisinopril . The pressures been controlled on current medical regimen.Bl ood pressure well controlled Disorder o f carotid artery 174575232 I77.9 Management of this problem was reviewed with the patient. No changes recommende d, status for this problem is stable at this time. Dyslipidemia 790593700 E 78.5 Most recent testing reviewed. All laboratory measuremen ts in appropriat e parameters on current medical therapy. This was reviewed and discussed with the patient and all questions answered.G iven history of CAD, LDL goal in this patient his 70s. EKG: left bundle branch block 898648410 I44.7 Chronic. Renewal of prescription 592676612 Z76.0 No need for nitroglyce rin or significan t symptoms since last seen. [id number] BEV ZAMORA MD CARDIOLOG Y [address] ,[address] [place] [address] 5 12/13/2020 08:07:14 12/13/2020 08:51:02 Coronary arteriosclerosis in [place] artery [id number] 107 I25.118 Angina now improved to class II with no need for nitroglyce rin. If she has recurrent symptoms, would consider addition of Ranexa. Old myocar dial infarction 1414945 I25.2 No recurrence . Hypertensive disorder 38 312765 I10 She's had no further episodes of cough since I discontinu ed lisinopril . The pressures been controlled on current medical regimen.Bl ood pressure well controlled . Patient monitors blood pressure at home and readings are generally in acceptable parameters . Disorder o f carotid artery 115455781 I77.9 Management of this problem was reviewed with the patient. No changes recommende d, status for this problem is stable at this time. Dyslipidemia 203394052 E 78.5 Most recent testing reviewed. All laboratory measuremen ts in appropriat e parameters on current medical therapy. This was reviewed and discussed with the patient and all questions answered.Radu ascencio history of CAD, LDL goal in this patient his 70s. EKG: left bundle branch block 818245920 I44.7 Chronic. [id number] FABIOLA RANDALL PA-C CARDIOLOG Y [address] ,[address] [place] [address] 5 05/09/2021 13:32:01 05/09/2021 17:24:42 Coronary arteriosclerosis 22720716 I25.10 cardiac catheteriz ation report from 2016 [...] me otherwise follow back in 4 months. [id number] FABIOLA RANDALL PA-C CARDIOLOG Y [address] [place] [address] 10/17/2021 08:57:59 10/17/2021 12:55:12 Overweight 689485486 E66.3 Hypertensive disorder 38 548175 I10 Blood pressure goals reviewed with the patient ( <140/90) encouraged regular exercise, healthy weight maintenanc e and adherence to low sodium diet (<2gm qd per AHA recommenda tions) Monitor BP's periodical ly at home. Coronary arteriosclerosis 46924860 I25.10 Anginal symptoms have improved with the addition of Ranexa. Patient is unable to tolerate higher doses. We will continue current treatment plan. Patient was also advised okay to use sublingual nitroglyce rin as needed. Follow-up in 6 months [id number] FABIOLA RANDALL PA-C CARDIOLOG Y [address] [place] [address] 03/27/2022 10:10:01 03/27/2022 11:15:33 Overweight 561782498 E66.3 Hypertensive disorder 38 522426 I10 Blood pressure goals reviewed with the patient ( <140/90) encouraged regular exercise, healthy weight maintenanc e and adherence to low sodium diet (<2gm qd per AHA recommenda tions) Monitor BP's periodical ly at home. Coronary arteriosclerosis 60459461 I25.10 Anginal symptoms have improved with the addition of Ranexa. Patient is unable to tolerate higher doses. We will continue current treatment plan. Patient was also advised okay to use sublingual nitroglyce rin as needed. Follow-up in 6 months [id number] NAJMA JESUS APRN CARDIOLOG Y [address] [place] [address] 09/24/2022 09:27:22 09/24/2022 13:21:59 Obese 279364475 E66.9 Discussed importance of maintainin g healthy weight, increasing aerobic exercise. Goal 120-150 min per week. Coronary arteriosclerosis 14195681 I25.10 CAD, RCA PCI 2007, 2011, [facility] 2016 [facility] MANUAL ARTS TEACHER RCA filling via collateral s 45% EF Continue ASA 81mg daily, atenolol 50mg daily, losartan/H CTZ 50-12.5mg daily, ranolazine , statin.Att empt to titrate up ranolazine to 250mg BIDRecheck echocardio gram to reassess LVEF. Hypertensive disorder 38 119385 I10 Stable today. Blood pressure goals reviewed with the patient ( <140/90) encouraged regular exercise, healthy weight maintenanc e and adherence to low sodium diet (<2gm qd per AHA recommenda tions) Monitor BP's periodical ly at home. Carotid ar ias stenosis 76714809 I65.29 s/p Right CEA. Bilat carotid bruits noted on exam.Carot id duplex will be obtained. Hyperlipidemia 94841273 E78.5 Currently on rosuvastat in. Low cholestero l/low fat diet advsied. Left bundl e branch block 70419870 I44.7 Chronic Subclavian artery stenosis 552207182 I70.8 s/p subclavian stent. [id number] ARIELLA DANGELO MD ECHO [facility] LAB CLOSED [address] [facility] [place] [address] 10/07/2022 13:17:12 10/09/2022 08:46:15 Carotid artery stenosis 32123122 I65.29 [id number] ARIELLA DANGELO MD ECHO VASCULAR LAB CLOSED [address] [place] [address] [place] [address] 10/07/2022 13:17:36 10/08/2022 04:35:35 Atherosclerosis of coronary artery without angina pectoris 2227209505 00359 I25.10 [id number] NAJMA JESUS APRN CARDIOLOG Y EAST [address] [place] [address] [address] [place] [address] 02/18/2023 09:06:30 02/20/2023 05:03:50 Coronary arteriosclerosis 49568507 I25.10 CAD, RCA PCI 2007, 2011, [facility] 2016 [facility] MANUAL ARTS TEACHER RCA filling via collateral s 45% EF Continue ASA 81mg daily, atenolol 50mg daily, losartan/H CTZ 50-12.5mg daily, ranolazine , statin.Inc rease ranolazine to BID dosing. Hypertensive disorder 38 639950 I10 Stable today. Blood pressure goals reviewed with the patient ( <140/90) encouraged regular exercise, healthy weight maintenanc e and adherence to low sodium diet (<2gm qd per AHA recommenda tions) Monitor BP's periodical ly at home. Carotid ar isa stenosis 08353045 I65.29 s/p Right CEA. Bilat carotid bruits noted on exam.Carot id duplex will be obtained. Hyperlipidemia 16868650 E78.5 Currently on rosuvastat in. Low cholestero l/low fat diet advsied. Left bundl e branch block 11503454 I44.7 Chronic. Subclavian artery stenosis 912170024 I70.8 s/p subclavian stent. Obese 346739080 E66.9 Discussed importance of maintainin g healthy weight, increasing aerobic exercise. Goal 120-150 min per week. Ischemic d ilated cardiomyopathy due to coronary artery disease 875818096 I25.5 Concentric LVH with abnormal LV function. Asynchrono us LV due to left bundle branch block. LVEF 35 5% noted on Echo 09/2022Revi ewed with Dr. Dangelo who recommende d MUGA scan next office visit. Will arranged today.She is on atenolol and losartan currently. Tolerating well. [id number] LINDEN RUFF MD [facility] [address] [place] [address] 02/23/2023 10:25:04 02/23/2023 13:56:56 [id number] NAJMA JESUS APRN CARDIOLOG Y [address] [place] [address] 06/03/2023 10:09:08 06/04/2023 15:51:43 Overweight 819983271 E66.3 Discussed importance of maintainin g healthy weight, increasing aerobic exercise. Goal 120-150 min per week. Coronary arteriosclerosis 37206571 I25.10 CAD, RCA PCI 2007, 2011, [facility] 2016 [facility] MANUAL ARTS TEACHER RCA filling via collateral s 45% EF [...] declines stress testing but is agreeable to [facility]. This will be arranged to further evaluate coronary anatomy. Hypertensive disorder 38 694550 I10 Stable today. Blood pressure goals reviewed with the patient ( <140/90) encouraged regular exercise, healthy weight maintenanc e and adherence to low sodium diet (<2gm qd per AHA recommenda tions) Monitor BP's periodical ly at home. Carotid ar isa stenosis 40054417 I65.29 s/p Right CEA. Bilat carotid bruits noted on exam.Carot id duplex 09/2022Impr essionBila teral less than 50% stenosis of the internal carotid arteries.> 70% RECA.Mild heterogene ous, irregular plaque noted in bilateral CCAs. Mild calcific plaque noted in left bulb area.The vertebral arteries demonstrat e antegrade flow.There is no evidence of subclavian steal. Hyperlipidemia 97619550 E78.5 Currently on rosuvastat in. Low cholestero l/low fat diet advsied. Left bundl e branch block 19896648 I44.7 Chronic. Subclavian artery stenosis 586661240 I70.8 s/p subclavian stent. Ischemic d ilated cardiomyopathy due to coronary artery disease 267498551 I25.5 Concentric LVH with abnormal LV function. Asynchrono us LV due to left bundle branch block. LVEF 35 5% noted on Echo 09/2022. Muga 02/2023 LVEF 23%See above plan. Heart fail ure with reduced ejection fraction 257148541 I50.9 Transition from ARB to Entresto today.Cont inue with BB, FarxigaRes erve diuretic for as needed use.Class II-III NYHA symptomsDa kirit weight, sodium restrictio n. [id number] NAJMA JESUS APRN CARDIOLOG Y [address] ,[address] [place] [address] 06/29/2023 10:37:57 06/30/2023 13:49:40 Coronary arteriosclerosis 35754875 I25.10 CAD, RCA PCI 2007, 2012, [facility] 2016 [facility] MANUAL ARTS TEACHER RCA filling via collateral s 45% EF Continue ASA 81mg daily, atenolol 50mg daily, losartan/H CTZ 50-12.5mg daily, ranolazine , statin.Inc rease ranolazine to BID dosing. EF with marked reduction, now down to 23%. Discussed BiV ICD, she respectful ly declines.D iscussed risk of SCD with reduced LV function, she is aware of risks and notes she will take that risk.[facility] 06/11/2023 with no target for PCI.Contin ue medical management Hypertensive disorder 38 390593 I10 Stable today. Blood pressure goals reviewed with the patient ( <140/90) encouraged regular exercise, healthy weight maintenanc e and adherence to low sodium diet (<2gm qd per AHA recommenda tions) Monitor BP's periodical ly at home. Carotid ar isa stenosis 03546592 I65.29 s/p Right CEA.Caroti d duplex 09/2022Impr essionBila teral less than 50% stenosis of the internal carotid arteries.> 70% RECA.Mild heterogene ous, irregular plaque noted in bilateral CCAs. Mild calcific plaque noted in left bulb area.The vertebral arteries demonstrat e antegrade flow.There is no evidence of subclavian steal. Continue ASA, statin. Hyperlipidemia 48010190 E78.5 Currently on rosuvastat in. Low cholestero l/low fat diet advsied. Left bundl e branch block 23884737 I44.7 Chronic. Subclavian artery stenosis 379842637 I70.8 s/p subclavian stent. Ischemic d ilated cardiomyopathy due to coronary artery disease 641773017 I25.5 Concentric LVH with abnormal LV function. Asynchrono us LV due to left bundle branch block. LVEF 35 5% noted on Echo 09/2022. Muga 02/2023 LVEF 23%LCH with marked reduction in LVEF.She has declined ICD as previously documented Heart fail ure with reduced ejection fraction 834142883 I50.9 Continue with BB, Farxiga, Entresto.R eserve diuretic for as needed use.Class II-III NYHA symptoms historical ly, none reported today.Eliazar y weight, sodium restrictio n. Overweight 845101649 E66 .3 Discussed importance of maintainin g healthy weight, increasing aerobic exercise. Goal 120-150 min per week. [id number] NAJMA JESUS APRN CARDIOLOG Y EAST [address] [place] [address] ,[address] [place] [address] 03/16/2024 09:33:31 03/18/2024 15:50:33 Coronary arteriosclerosis 14656574 I25.10 CAD, RCA PCI 2007, 2011, [facility] 2016 [facility] MANUAL ARTS TEACHER RCA filling via collateral s 45% EF Continue ASA 81mg daily, atenolol 50mg daily, losartan/H CTZ 50-12.5mg daily, ranolazine , statin.Inc rease ranolazine to BID dosing. EF with marked reduction, now down to 23%. Discussed BiV ICD, she respectful ly declines, again today.Disc ussed risk of SCD with reduced LV function, she is aware of risks and notes she will take that risk.[facility] 06/11/2023 with no target for PCI.Contin ue medical management Heart fail ure with reduced ejection fraction 909595570 I50.9 Continue with BBFarxiga and Entresto cost prohibitiv eWill start valsartan 40mg dailyReser ve diuretic for as needed use.Class II-III NYHA symptoms historical ly, none reported today.Eliazar y weight, sodium restrictio n. Hypertensive disorder 38 188364 I10 Stable today. Blood pressure goals reviewed with the patient ( <140/90) encouraged regular exercise, healthy weight maintenanc e and adherence to low sodium diet (<2gm qd per AHA recommenda tions) Monitor BP's periodical ly at home. Carotid ar isa stenosis 58274004 I65.29 s/p Right CEA.Caroti d duplex 09/2022Impr essionBila teral less than 50% stenosis of the internal carotid arteries.> 70% RECA.Mild heterogene ous, irregular plaque noted in bilateral CCAs. Mild calcific plaque noted in left bulb area.The vertebral arteries demonstrat e antegrade flow.There is no evidence of subclavian steal. Continue ASA, statin. Hyperlipidemia 83690966 E78.5 Currently on rosuvastat in. Low cholestero l/low fat diet advsied. Left bundl e branch block 34499144 I44.7 Chronic. Subclavian artery stenosis 585210532 I70.8 s/p subclavian stent. Ischemic d ilated cardiomyopathy due to coronary artery disease 327090656 I25.5 Concentric LVH with abnormal LV function. Asynchrono us LV due to left bundle branch block. LVEF 35 5% noted on Echo 09/2022. Muga 02/2023 LVEF 23%LCH with marked reduction in LVEF.She has declined ICD as previously documented Overweight 971656352 E66 .3 Discussed importance of maintainin g healthy weight, increasing aerobic exercise. Goal 120-150 min per week. 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 Health Concerns Section Related Observation LastModified by Organization Detai ls LastModified Time None Recorded Concern Status LastModified by Organization Details LastModified Time None Recorded Advance Directives Directive None Recorded Payers Insurance Date Sequence Insurance Name Policy Number Policy Loa Covered Member ID Lao Member ID Guarantor Name 03/25/2024 2 [place] [id number] Carmichael B Neeraj [id number] Carmichael B Neeraj 03/13/2024 1 [place] Carmichael B Neeraj [id number] Carmichael B Neeraj Notes Date Note Type Note Provider Name and Address Organization Details Recorded Time 02/18/2023 text/html ROS as noted in the HPI Pleasant 78-year-old white female who had previously followed with Dr. Zamora, then Fabiola Randall PA-C thereafter. She has coronary artery disease PCI 2007, RCA PCI 2011, chronic LBBB, history of right CEA, subclavian stent. LHC with Dr. Hardwick 2015 c MANUAL ARTS TEACHER of RCA with good collaterals and 45% EF.Left subclavian stenosis and right carotid stenosis noted. Imdur added for angina related to right coronary MANUAL ARTS TEACHER. Came in April 2021 with increasing episodes [...] due to left bundle branch block. LVEF 35 5%2. Grade 1 diastolic dysfunction suggestive of impaired relaxation3. Biatrial enlargement noted4. Mild tricuspid regurgitation. RVSP 4 5-50 mmHg suggestive of mild pulmonary hypertension Here today for follow up.Having problems with back, joints. MRI pending.Likes to piddle in her yard, then has to take breaks.No heart failure symptoms are reported. No orthopnea, PND, LE edema.She denies CP. NAJMA JESUS, GLASS MECHANIC [address] [place], [address], [facility] 02/19/2023 16:42:38 06/03/2023 text/html ROS as noted in the HPI Pleasant 78-year-old white female who had previously followed with Dr. Zamora, then Fabiola Randall PA-C thereafter. She has coronary artery disease PCI 2007, RCA PCI 2011, chronic LBBB, history of right CEA, subclavian stent. C with Dr. Hardwick 2015 c MANUAL ARTS TEACHER of RCA with good collaterals and 45% EF.Left subclavian stenosis and right carotid stenosis noted. Imdur added for angina related to right coronary MANUAL ARTS TEACHER. Came in April 2021 with increasing episodes [...] due to left bundle branch block. LVEF 35 5%2. Grade 1 diastolic dysfunction suggestive of impaired relaxation3. Biatrial enlargement noted4. Mild tricuspid regurgitation. RVSP 4 5-50 mmHg suggestive of mild pulmonary hypertension Here [...] PND.She is sedentary at home. NAJMA JESUS, GLASS MECHANIC [address] [place], [address], [facility] 06/04/2023 13:11:15 06/29/2023 text/html ROS as noted in the HPI Pleasant 78-year-old white female with Hx of coronary artery disease PCI 2007, RCA PCI 2011, chronic LBBB, history of right CEA, subclavian stent. LHC with Dr. Hardwick 2015 c MANUAL ARTS TEACHER of RCA with good collaterals and 45% EF.Left subclavian stenosis and right carotid stenosis noted. Imdur added for angina related to right coronary MANUAL ARTS TEACHER. Came in April 2021 with increasing episodes [...] due to left bundle branch block. LVEF 35 5%2. Grade 1 diastolic dysfunction suggestive of impaired relaxation3. Biatrial enlargement noted4. Mild tricuspid regurgitation. RVSP 4 5-50 mmHg suggestive of mild pulmonary hypertension Muga scan last visit . Global hypokinesia2. Ejection fraction 23%. Recommendation of defib placement.She has noted she will not have defib on several occasions. Agreeable to [facility] last office visit. She was also transitioned to Entresto at that time. Here today for hospital follow up.[facility] 06/11/2023Impression: 1. MANUAL ARTS TEACHER of the RCA with [id number] collaterals2. LAD and LCx has nonobstructive disease. 30 5% stenosis noted3. Severe global LV dysfunction. LVEF 30+/- 5% She is tolerating the Entresto without difficulty. Switching drug insurance companies in Aug, current company does not cover Entresto. Hoping new insurance in Aug will cover.She has no heart failure symptoms today. Denies SOA/NAYAK, orthopnea, PND.She denies CP, syncope, near-syncope. No palpitations reported. NAJMA DESIR GRAVES, GLASS MECHANIC [address] [place], [address], [facility] 06/30/2023 13:33:17 03/16/2024 text/html ROS as noted in the HPI Pleasant 79-year-old white female with Hx of coronary artery disease PCI 2007, RCA PCI 2011, chronic LBBB, history of right CEA, subclavian stent. [facility] with Dr. Hardwick 2015 c MANUAL ARTS TEACHER of RCA with good collaterals and 45% EF.Left subclavian stenosis and right carotid stenosis noted. Imdur added for angina related to right coronary MANUAL ARTS TEACHER. Came in April 2021 with increasing episodes [...] due to left bundle branch block. LVEF 35 5%2. Grade 1 diastolic dysfunction suggestive of impaired relaxation3. Biatrial enlargement noted4. Mild tricuspid regurgitation. RVSP 4 5-50 mmHg suggestive of mild pulmonary hypertension Muga scan last visit . Global hypokinesia2. Ejection fraction 23%. Recommendation of PAN CLEANER-D placement.She has noted she will not have PAN CLEANER-D on several occasions. Agreeable to [facility] last office visit. She was also transitioned to Entresto at that time. Here today for hospital follow up.[facility] 06/11/2023Impression: 1. MANUAL ARTS TEACHER of the RCA with [id number] collaterals2. LAD and LCx has nonobstructive disease. 30 5% stenosis noted3. Severe global LV dysfunction. LVEF 30+/- 5% Here today for follow up.She had acute CVA since last visit here. Went to OSH, was flown to [facility] for treatment.She did not have echo while hospitalized, but PCP sent her for one thereafter d/t dyspnea. Echo [facility] VentricleThe left ventricle is normal size. [...] times, which seems to help. NAJMA JESUS, GLASS MECHANIC [address] [place], [address], [facility] 03/18/2024 13:44:52 OBGyn Episode No OBEpisode recorded.
--- OUTSIDE RECORDS SUMMARY | 2025-06-19 12:03 | XMS_ITS | Clinical Summary ---
Author Organization [facility] Address [address] [place] [address] Care Team Providers Care Examination Grader Name Role Phone DavidTaylor GUICHO Primary Care Provider [phone] Jeanine Stewart MD Unavailable [phone] Allergies Active Allergy Reactions Criticality Noted [...] Do not crush, chew, or split. Active MANDARIN SPEAKING NANNY Thyroid 90 MG tablet Take 1 tablet [...] time each day. 4 Active nystatin (Mycostatin) 001351 UNIT/ML suspension 1 mL (100,000 Units). 4 Active ergocalciferol 1.25 MG (75005 UT) capsule 3 Active fluconazole (Diflucan) 100 [...] answer 01/25/2024 How often do you attend [facility] or anglican services? Patient unable to answer 01/25/2024 Do you belong to any clubs o r organizations such as sabianist groups, unions, fraternal or athletic groups, or [...] one occasion? Patient unable to answer 01/25/2024 [facility]ational Stress Questionnaire Answer [...] place to sleep or slept in a alf (including now)? Patient unable to answer 01/25/2024 Utilities Answer Date Recorded In the past 12 months has th e [employer], gas, oil, or water company threatened to [...] 05/27/2024 8:45 AM EDT Plan of Treatment Upcoming Encounters Date Type Department Care Team (Late st Contact Info) Description 11/22/2025 8:00 AM EDT Consult [facility] [address] [place] [address] Satnam Isaacs MD [address] [place] [address] Health Maintenance Due Date Last Done Comments [...] 2021 [facility]-Diabetes: Hemoglobin A1C 04/22/2024 01/22/2024, 05/22/2022 [id number] Vaccine ( season) 2025 04/26/2024, 04/29/2023, 05/02/2022, Additional history exists [facility]-Influenza [...] <5.7 % 01/22/2024 7:37 AM EDT [facility] Blood Venous blood specimen / Unknown [...] Adults <6.0% Children and Adolescents <7.5% Source: [place] [employer]. Standards of medical care in diabetes,2017. Diabetes Care.2017:40 (suppl 1):S1-S135. HbA1c assay performed by an ion-exchange chromatography method that is certified traceable to the DCCT. us Katerina Fleming MD LAB BLOOD ORDERABLES Final Resu lt [facility] [address] [place] [id number] from Last 3 Months or Most Recently Relevant to Health Maintenance [place] [address] ANTHEM Advance Directives * Full Code (Latest Code Status on File) Date Activated Date Inactivated Comments 01/22/2024 5:49 AM 01/25/2024 5:02 PM Question Answer Comments Patient has decision-making capacity? Yes Care Teams Examination Grader Relationship Specialty Start Date End Date Taylor Hernandez PA [address] [place] [address] PCP - General 12/21/20 Jeanine Stewart MD [address] [place] [address] Fellow Endocrinology 05/29/22
--- OUTSIDE RECORDS SUMMARY | 2025-06-19 12:03 | XMS_ITS | Encounter Summary ---
Author Organization Healthcare Address [address] [place] [address] Care Team Providers Care Crown Ironer Name Role Phone Taylor Hernandez Primary Care Provider [phone] Jeanine Stewart MD Unavailable [phone] Reason for Referral * Consultation (Routine) - Closed Specialty Diagnoses / Procedures Referred By Contac t Referred To Contact Endocrinology Diagnoses Hyperparathyroidism, unspecified (CMS/HCC) Taylor Hernandez PA [address] [place] [address] Phone: tel: fax: [facility] Endocrinology [address] [place] [address] Phone: tel: fax: Referral ID Status Reason Start Date Expiration Date V isits Requested Visits Authorized [id number] Closed Specialty Services Required 05/12/2022 11/11/2023 1 1 Encounter Details Date Type Department Care Team (Late st Contact Info) Description 05/12/2022 Community Orders Community Practice [address] [place] [address] Taylor Hernandez PA [address] [place] [address] Hyperparathyroidism, unspecified (CMS/HCC) (Primary Dx) Social History Tobacco Use Types Packs/Day Years Used Date Smoking Tobacco: Never Assessed Comments Unknown Sex and Gender Information Value Date Recorded Sex Assigned at Not on file Legal Sex Female 6:17 PM EDT Gender Identity Not on file Sexual Orientation Not on file documented as of this encounter Plan of Treatment Upcoming Encounters Date Type Department Care Team (Late st Contact Info) Description 11/22/2025 8:00 AM EDT Consult Jeanine [facility] [place] - [facility] [address] [place] [phone] Satnam Isaacs MD [address] [facility] [address] [place] [address] Scheduled Referrals Name Type Priority Associated Diagnoses Order Schedule Ambulatory referral to Endocrinology Outpatient Referral Routine Hyperparathyroidism , unspecified (CMS/HCC) Expected: 05/12/2022 (Approximate), Expires: 07/12/2022 documented as of this encounter Visit Diagnoses Diagnosis Hyperparathyroidism, unspecified (CMS/HCC)- Primary Hyperparathyroidism, unspecified documented in this encounter Care Teams Crown Ironer Relationship Specialty Start Date End Date Taylor Hernandez PA [address] [facility] [place] [address] PCP - General 12/21/20 Jeanine Stewart MD [address] [place] [address] Fellow Endocrinology 05/29/22 documented as of this encounter
== END 2025-06-16 23:59 ==
LOC: LAB.DROPOF 06-19 12:01
PROVIDERS: PCP Family Medicine; Visit Provider Family Medicine
DX: R79.89 Other specified abnormal findings of blood chemistry (principal); Q38.3 Other congenital malformations of tongue; Z11.59 Encounter for screening for other viral diseases; E11.9 Type 2 diabetes mellitus without complications
CPT/HCPCS: 80053; 82043; 82570; 82607; 83036; 84436; 84439; 84443; 84479

== ENCOUNTER 2025-08-01 08:45 | Outpatient (CLI) | payer MEDICARE, BC, SELFPAY ==
--- OUTSIDE RECORDS SUMMARY | 2025-08-01 08:53 | XMS_ITS | Clinical Summary ---
Author Organization [facility] Address [address] [place] [address] Care Team Providers Care Advance Seal Delivery System Maintainer Name Role Phone DavidTaylor GUICHO Primary Care Provider [phone] Jeanine Stewart MD Unavailable [phone] Allergies Active Allergy Reactions Criticality Noted [...] Do not crush, chew, or split. Active DIORAMIST Thyroid 90 MG tablet Take 1 tablet [...] time each day. 4 Active nystatin (Mycostatin) 756102 UNIT/ML suspension 1 mL (100,000 Units). 4 Active ergocalciferol 1.25 MG (35518 UT) capsule 3 Active fluconazole (Diflucan) 100 [...] answer 01/25/2024 How often do you attend [facility] or amish services? Patient unable to answer 01/25/2024 Do you belong to any clubs o r organizations such as roman catholic groups, unions, fraternal or athletic groups, or [...] one occasion? Patient unable to answer 01/25/2024 [facility] Health - Occupational Stress Questionnaire [...] place to sleep or slept in a group home (including now)? Patient unable to answer 01/25/2024 Utilities Answer Date Recorded In the past 12 months has th e [employer], gas, oil, or water company threatened to [...] Description 11/22/2025 8:00 AM EDT Consult DiegoSushil Sc [facility] [place] - [facility] [address] [place] [address] Satnam Isaacs MD [address] [place] [address] Health Maintenance Due Date Last [...] 2021 [facility]-Diabetes: Hemoglobin A1C 04/22/2024 01/22/2024, 05/22/2022 [id number] Vaccine ( season) 2025 04/26/2024, 04/29/2023, 05/02/2022, Additional history exists [facility]-Influenza Vaccine (#1) 2025 [facility]-Obesity Intervention Completed 024, 02/10/2024, 01/21/2024, Additional history exists HPV Vaccines (No Doses Required) Completed [facility]-HIB Vaccines Aged Out No longer e [...] <5.7 % 01/22/2024 7:37 AM EDT [facility] Blood Venous blood specimen / Unknown [...] Adults <6.0% Children and Adolescents <7.5% Source: [employer] Diabetes [employer]. Standards of medical care in diabetes,2017. Diabetes Care.2017:40 (suppl 1):S1-S135. HbA1c assay performed by an ion-exchange chromatography method that is certified traceable to the DCCT. us Katerina Fleming MD LAB BLOOD ORDERABLES Final Resu lt [facility] [address] [place] [address] from Last 3 Months or Most Recently Relevant to Health Maintenance Insurance MEDICARE ANTHEM Advance Directives * Full Code (Latest Code Status on File) Date Activated Date Inactivated Comments 01/22/2024 5:49 AM 01/25/2024 5:02 PM Question Answer Comments Patient has decision-making capacity? Yes Care Teams Advance Seal Delivery System Maintainer Relationship Specialty Start Date End Date Taylor Hernandez PA [address] [place] [address] PCP - General 12/21/20 Jeanine Stewart MD [address] [place] [address] Fellow Endocrinology 05/29/22
--- OUTSIDE RECORDS SUMMARY | 2025-08-01 08:53 | XMS_ITS | Encounter Summary ---
Author Organization Healthcare Address [address] [place] [address] Care Team Providers Care Sales Development Coordinator Name Role Phone Taylor Hernandez Primary Care Provider Jeanine Stewart MD Unavailable [phone] Reason for Referral * Consultation (Routine) - Closed Specialty Diagnoses / Procedures Referred By Contac t Referred To Contact Endocrinology Diagnoses Hyperparathyroidism, unspecified (CMS/HCC) Taylor Hernandez PA [address] [place] [address] Phone: tel: fax: [facility] Endocrinology [address] [place] [address] Phone: tel: fax: Referral ID Status Reason Start Date Expiration Date V isits Requested Visits Authorized [id number] Closed Specialty Services Required 05/12/2022 11/11/2023 1 1 Encounter Details Date Type Department Care Team (Late st Contact Info) Description 05/12/2022 Community Orders Community Practice [address] [place] [address] Taylor Hernandez PA [address] [place] [address] Hyperparathyroidism, unspecified (CMS/HCC) (Primary Dx) [...] Description 11/22/2025 8:00 AM EDT Consult Jeanine Ms [facility] [place] - [facility] [address] [place] [address] Satnam Isaacs MD [address] [facility] [address] [place] [address] Scheduled Referrals Name Type Priority Associated Diagnoses Order Schedule Ambulatory referral to Endocrinology Outpatient Referral Routine Hyperparathyroidism , unspecified (CMS/HCC) Expected: 05/12/2022 (Approximate), Expires: 07/12/2022 documented as of this encounter Visit Diagnoses Diagnosis Hyperparathyroidism, unspecified (CMS/HCC)- Primary Hyperparathyroidism, unspecified documented in this encounter Care Teams Sales Development Coordinator Relationship Specialty Start Date End Date Taylor Hernandez PA [address] [facility] [place] [address] PCP - General 12/21/20 Jeanine Stewart MD [address] [place] [address] Fellow Endocrinology 05/29/22 documented as of this encounter
--- OUTSIDE RECORDS SUMMARY | 2025-08-01 08:53 | XMS_ITS | Clinical Summary ---
Author Organization [email or web address] ([place], [place], [place], [place], [place]) Address [address] [place] [address] Care Team Providers Care Sr. Logistics Analyst Name Role Phone Taylor Hernandez PA-C Primary Care Provider [phone] Allergies Active Allergy Reactions Criticality Noted Date Comments Chlorhexidine Gluconate (Bulk) 06/11 Medical Supply, Miscellaneous Anxiety Low 2022 Iodinated Contrast Media High 06/11/2023 Nitrofurantoin Macrocrystal Swelling High 06/11/20 Nitrofurantoin Swelling High 06/18/2008 Penicillins 01/06/2023 Sulfa (Sulfonamide Antibiotics) Hives High 05/10 Acetaminophen Anxiety Medium 06/11/2023 Medications thyroid, pork, (ARMOUR) 120 mg tablet Take 90 mg by mouth. Active rosuvastatin (CRESTOR) 5 MG tablet Take 1 tablet (5 mg total) by mouth daily. 3 Active isosorbide mononitrate (IMDUR) 120 mg 24 hr tablet isosorbide mononitrate ER 120 mg tablet,extended release 24 hr TAKE ONE TABLET BY MOUTH EVERY MORNING Active glipiZIDE (GLUCOTROL) 5 MG tablet Take 2 tablets (10 mg total) by mouth. Active cholecalciferol, vitamin D3, (cholecalciferol , vit D3,,bulk,) 100,000 unit/gram Powd Take by mouth. Active traMADoL 100 mg Tab Twice a day 3 Active nitroglycerin (NITRODUR) 0.1 mg/hr patch .COMPLEX 3 Active atenoloL-chlorth alidone (TENORETIC) 100-25 mg per tablet .COMPLEX 3 Active aspirin 81 MG chewable tablet Take by mouth. Active sacubitriL-valsa rtan (Entresto) 24-26 mg tablet Take 1 tablet by mouth 2 (two) times daily. Active SITagliptin phosphate (JANUVIA) 50 MG tablet Take 1 tablet (50 mg total) by mouth daily. Active dapagliflozin propanediol (Farxiga) 5 mg tablet Take 1 tablet (5 mg total) by mouth daily. Active ranolazine (RANEXA) 500 MG 12 hr tablet Take 1 tablet (500 mg total) by mouth 2 (two) times daily. Active Active Problems Problem Noted Date Diagnosed Date Diabetes 06/11/2023 Osteopenia 06/11/2023 Lumbar radiculopathy 06/11/2023 Left knee pain 06/11/2023 Hypothyroid 06/11/2023 Hypercholesterolemia 06/11/2023 HTN (hypertension) 06/11/2023 Fatigue 06/11/2023 Contact dermatitis 06/11/2023 Carotid artery disease 06/11/2023 Hx of acute pancreatitis 06/11/2023 Elevated parathyroid hormone 05/22/2022 Social History Tobacco Use Types Packs/Day Years Used Date Smoking Tobacco: Former Cigarettes Smokeless Tobacco: Never Tobacco Cessation:Counseling Given: Not Answered Alcohol Use Standard Drinks/Week Comments Not Currently 0 (1 standard drink = 0.6 oz pur e alcohol) Food Insecurity Answer Date Recorded Food run out past 12 months Not on file 08/10 Food did not last past 12 months Not on file 08/28/2023 Employment Answer Date Recorded Help finding and keeping a job Not on file 0 08/28/2023 Family and Community Support Answer Ishaan e Recorded Help with Day to Day Activities Not on file 08/28/2023 Feeling Lonely or Isolated Not on file 08/28 Educational Attainment Answer Date Abhi rded Speak language other than Greek at home Not on file 08/28/2023 Want help with school or training Not on file 08/28/2023 Substance Use Answer Date Recorded Used prescription meds for non-medical reasons N ot on file 08/28/2023 Used illegal drugs past 12 months Not on file 08/28/2023 Comments Unknown Sex and Gender Information Value Date Recorded Sex Assigned at Not on file Legal Sex Female 5:38 PM CDT Gender Identity Not on file Sexual Orientation Not on file Last Filed Vital Signs Vital Sign Reading Time Taken Comments Blood Pressure 96/54 06/11/2023 12:52 PM EDT Pulse 66 06/11/2023 12:52 PM EDT Temperature 36.2 C (97.2 F) 06/11/2023 8:49 AM EDT Respiratory Rate 14 06/11/2023 12:52 PM EDT Oxygen Saturation 93% 06/11/2023 12:52 PM EDT Inhaled Oxygen Concentration - - Weight 68 kg (150 lb) 06/11/2023 8:49 AM EDT Height 152.4 cm (5') 06/11/2023 8:49 AM EDT Body Mass Index 29.29 06/11/2023 8:49 AM EDT Plan of Treatment Health Maintenance Due Date Last Done Comments DXA SCAN 1945 Diabetic Kidney Health Evalu ation (KED) 1945 Diabetic Eye Exam 01/24/1956 Depression Screening (12+) 1958 Hepatitis C Screening 01/24/1964 DTAP/TDAP/TD VACCINES (1 - Tdap) 1965 Pneumococcal 50+ years (1 of 2 - PCV) 1965 Shingles Vaccine (Zoster) (1 of 2) 01/24/1996 Medicare Initial AWV [id number] 01/10/2012 Respiratory Syncytial Virus (RSV) Adult or (1 - 1-dose 75+ series) 2021 Hemoglobin A1C 06/11/2023 Tobacco Cessation Counseling and Screening (12+) 06/11/2024 06/11/2023 Falls Risk Screening 08/10/2024 COVID-19 VACCINE (7 - 2024-2 6 season) 2025 04/29/2023, 05/02/2022, 11/06/2021, Additional history exists Influenza Vaccine (#1) 2025 Insurance MEDICARE PART A B GU[place]HO JACK [id number] [facility] SUPPL Advance Directives For more information, please contact: [phone] * Full Code (Latest Code Status on File) Date Activated Date Inactivated Comments 06/11/2023 9:44 AM 06/12/2023 4:27 AM Care Teams Sr. Logistics Analyst Relationship Specialty Start Date End Date Taylor Hernandez PA-C [address] [place] [address] PCP - General Physician Car Ferrier 06/11/23
--- OUTSIDE RECORDS SUMMARY | 2025-08-01 08:53 | XMS_ITS | Referral Summary ---
Author Organization [employer] ([place], [place], [place], [place], [place]) Address [address] [place] [address] Care Team Providers Care Mold Dresser Name Role Phone Taylor Hernandez PA-C Primary Care Provider Allergies Active Allergy Reactions Criticality Noted Date [...] Date Abhi rded Speak language other than Lithuanian at home Not on file 08/28/2023 Want [...] 06/11/2023 8:49 AM EDT Plan of Treatment Not on [place] [id number] [facility] SUPPL Advance Directives For more information, please contact: [phone] * Full Code (Latest Code Status on File) Date Activated Date Inactivated Comments 06/11/2023 9:44 AM 06/12/2023 4:27 AM Care Teams Mold Dresser Relationship Specialty Start Date End Date Taylor Hernandez PA-C [address] [place] [address] PCP - General Physician Electronic Train Control Technician 06/11/23
--- OUTSIDE RECORDS SUMMARY | 2025-08-01 08:53 | XMS_ITS ---
Laboratory report Created on: July 11, 2025 RAKESH JACK : 1945 Sex: Female Author Organization Unknown PROBLEMS Problems List Code Description RESULTS Laboratory Orders Date Order Code Test 2024-05-10 [id number] HCV ANTIBODY RFX TO QUANT PCR 2024-05-10 [id number] THYROGLOBULIN AN TIBODY 2024-05-10 [id number] THYROID PEROXIDA SE (TPO) AB 2024-05-10 [id number] TRIIODOTHYRONINE (T3), FREE Laboratory Results Date LOINC Test Value Unit Reference Range Interpre tation 2024-05-10 [id number] HCV AB NR NON REACTIVE 2024-05-10 [id number] THYROGLOBULIN ANTIBODY 2.6 IU/ML 0.0-0. 9 H 2024-05-10 [id number] THYROID PEROXIDA SE (TPO) AB 63 IU/ML 0-34 H 2024-05-10 [id number] TRIIODOTHYRONINE (T3), FREE 5.9 PG/ML 2.0-4.4 H
[2025-08-01 09:22] LABS: Hematocrit 42.1 % (37.0-47.0); Hemoglobin 14.3 g/dL (12.2-16.2); Immature Granulocytes % 0.2 %; Mean Corpuscular HGB Conc 34.0 g/dL (31.8-35.4); Mean Corpuscular Hemoglobin 34.3 pg (27.0-31.2); Mean Corpuscular Volume 101.0 fl (81-99); Nucleated Red Blood Cells % 0 %; Platelet Count 256 K/mm3 (142-424); Red Blood Count 4.17 M/mm3 (4.20-5.40); Red Cell Distribution Width-SD 45.4 fL; White Blood Count 5.9 K/mm3 (4.8-10.8)
[2025-08-01 10:15] LABS: Albumin Level 4.4 g/dl (3.5-5.0); Chloride 101 mmol/L (98-107); Sodium 137 mmol/L (136-145)
[2025-08-01 10:16] LABS: Potassium 4.7 mmoL/L (3.5-5.1)
[2025-08-01 10:18] LABS: Alanine Aminotransferase 24 U/L (12-78); Alkaline Phosphatase 65 U/L (38-126); Anion Gap 11.7 mEq/L (5-15); Aspartate Amino Transferase 29 U/L (14-36); Bilirubin,Direct 0.0 mg/dl (0.0-0.4); Bilirubin,Indirect 1.4 mg/dL (0.0-0.9); Bilirubin,Total 1.4 mg/dl (0.2-1.3); Bilirubin,Unconjugated 1.4 mg/dL (0.0-1.1); Blood Urea Nitrogen 19 mg/dl (7-17); Calcium 9.8 mg/dl (8.4-10.2); Carbon Dioxide 29 mmol/L (22.0-30.0); Cholesterol 97 mg/dl (140-200); Creatinine,Serum 1.00 mg/dl (0.52-1.04); Estimated Glomerular Filt Rate 53 ml/min (>60); GFR (African American) 65 ML/MIN (>60); Glucose 180 mg/dl (74-100); Total Protein,Serum 6.6 g/dl (6.3-8.2); Triglycerides 157 mg/dl (30-150)
[2025-08-01 10:19] LABS: HDL Cholesterol 49 mg/dl (40-60); Magnesium 1.8 mg/dl (1.6-2.3)
[2025-08-01 10:35] LABS: Free T4 (Free Thyroxine) 1.45 ng/dl (0.78-2.19)
[2025-08-01 10:50] LABS: Thyroid Stimulating Hormone 0.68 uIU/mL (0.465-4.68)
== END 2025-08-01 23:59 | disposition home or self-care (01) ==
PROVIDERS: PCP Student in an Organized Health Care Education/Training Program; Visit Provider Nurse Practitioner
DX: I25.118 Atherosclerotic heart disease of native coronary artery with other forms of angina pectoris (principal); I11.0 Hypertensive heart disease with heart failure; I50.20 Unspecified systolic (congestive) heart failure
CPT/HCPCS: 36415; 80048; 80061; 80076; 83735; 84439; 84443; 85025

== ENCOUNTER 2025-08-07 09:24 | Outpatient (CLI) | payer MEDICARE, BC, SELFPAY ==
--- NOTE | 2025-08-07 09:30 | CA_ITS ---
APPROVED REPORT EXAM: Limited 2D and color flow Echocardiogram Inner Tube Cutter: Coni Wolf RDCS Ht: 5 ft 1 in Wt: 151lbs BSA: 1.68 BP: 122/64 mmHg Indications: HFrEF M-Mode Dimensions RVDd 2.37 cm (0.9-2.6) LA Diam 4.64 cm (1.9-4.0) LVDd 6.16 cm (3.5-5.7) LVDs 5.55 cm (3.5-5.7) IVSd 0.64 cm (0.6-1.1) PWd 0.76 cm (0.6-1.1) EF (Teich) 21.20% FS 9.90% EDV (Teich) 191.10 mL ESV (Teich) 150.50 mL Other Information Study Quality: Technically Difficult Conclusion This is a limited TTE to evaluate for LV systolic function. Limited windows are obtained. The left ventricle is normal in size. There is increased LV wall thickness. There is severe global hypokinsis present. LVEF is 20-25%. Compared to prior TTE from 02/09/2024, the LV systolic function is now slightly worse. Electronically signed by : Keshia Knott MD 08/10/2025 13:39:08
--- OUTSIDE RECORDS SUMMARY | 2025-08-07 09:37 | XMS_ITS | Referral Summary ---
Author Organization [email or web address] ([place], [place], [place], [place], [place]) Address [address] [place] [address] Care Team Providers Care Gerontological Nurse Practitioner Name Role Phone Taylor Hernandez PA-C Primary [...] Date Abhi rded Speak language other than Singaporean at home Not on file 08/28/2023 Want [...] on [place] [id number] [facility] SUPPL Advance Directives For more information, please contact: [phone] * Full Code (Latest Code Status on File) Date Activated Date Inactivated Comments 06/11/2023 9:44 AM 06/12/2023 4:27 AM Care Teams Gerontological Nurse Practitioner Relationship Specialty Start Date End Date Taylor Hernandez PA-C [address] [place] [address] PCP - General Physician Headliner Installer 06/11/23
--- OUTSIDE RECORDS SUMMARY | 2025-08-07 09:37 | XMS_ITS | Clinical Summary ---
Author Organization [employer] ([place], [place], [place], [place], [place]) Address [address] [place] [address] Care Team Providers Care Tile Erector Name Role Phone Taylor Hernandez PA-C Primary Care Provider [phone] Allergies Active Allergy Reactions Criticality Noted Date [...] Date Abhi rded Speak language other than Bruneian at home Not on file 08/28/2023 Want [...] Insurance MEDICARE PART A B GU[place]HO JACK [id number] [facility] SUPPL Advance Directives For more information, please contact: [phone] * Full Code (Latest Code Status on File) Date Activated Date Inactivated Comments 06/11/2023 9:44 AM 06/12/2023 4:27 AM Care Teams Tile Erector Relationship Specialty Start Date End Date Taylor Hernandez PA-C [address] [place] [address] PCP - General Physician Air Crew Member 06/11/23
--- OUTSIDE RECORDS SUMMARY | 2025-08-07 09:37 | XMS_ITS | Encounter Summary ---
Author Organization Healthcare Address [address] [place] [address] Care Team Providers Care Rehabilitation Attendant Name Role Phone Taylor Hernandez Primary Care Provider [phone] Jeanine Stewart MD Unavailable [phone] Reason for Referral * Consultation (Routine) - Closed Specialty Diagnoses / Procedures Referred By Contac t Referred To Contact Endocrinology Diagnoses Hyperparathyroidism, unspecified (CMS/HCC) Taylor Hernandez PA [address] [place] [address] Phone: tel: fax: [facility] Endocrinology [address] [place] [address] Phone: tel: fax: Referral ID Status Reason Start Date Expiration Date V isits Requested Visits Authorized [id number] Closed Specialty Services Required 05/12/2022 11/11/2023 1 1 Encounter Details Date Type Department Care Team (Late st Contact Info) Description 05/12/2022 Community Orders Community Practice [address] [place] [address] Taylor Hernandez PA [address] [place] [address] Hyperparathyroidism, unspecified (CMS/HCC) (Primary Dx) [...] Description 11/22/2025 8:00 AM EDT Consult Jeanine Mi [facility] [place] - [facility] [address] [place] [address] Satnam Isaacs MD [address] [facility] [address] [place] [address] Scheduled Referrals Name Type Priority Associated Diagnoses Order Schedule Ambulatory referral to Endocrinology Outpatient Referral Routine Hyperparathyroidism , unspecified (CMS/HCC) Expected: 05/12/2022 (Approximate), Expires: 07/12/2022 documented as of this encounter Visit Diagnoses Diagnosis Hyperparathyroidism, unspecified (CMS/HCC)- Primary Hyperparathyroidism, unspecified documented in this encounter Care Teams Rehabilitation Attendant Relationship Specialty Start Date End Date Taylor Hernandez PA [address] [facility] [place] [address] PCP - General 12/21/20 Jeanine Stewart MD [address] [place] [address] Fellow Endocrinology 05/29/22 documented as of this encounter
--- OUTSIDE RECORDS SUMMARY | 2025-08-07 09:37 | XMS_ITS | Clinical Summary ---
Author Organization [facility] Address [address] [place] [address] Care Team Providers Care Earth Sciences Professor Name Role Phone DavidTaylor GUICHO Primary Care Provider [phone] Jeanine Stewart MD Unavailable [phone] Allergies Active Allergy Reactions Criticality Noted [...] Do not crush, chew, or split. Active COOK CHILI Thyroid 90 MG tablet Take 1 tablet [...] time each day. 4 Active nystatin (Mycostatin) 674660 UNIT/ML suspension 1 mL (100,000 Units). 4 Active ergocalciferol 1.25 MG (89789 UT) capsule 3 Active fluconazole (Diflucan) 100 [...] 01/25/2024 How often do you attend [facility] or roman catholic services? Patient unable to answer 01/25/2024 Do you belong to any clubs o r organizations such as holiness groups, unions, fraternal or athletic groups, or [...] one occasion? Patient unable to answer 01/25/2024 [facility] - Occupational Stress Questionnaire Answer [...] place to sleep or slept in a [facility] (including now)? Patient unable to answer 01/25/2024 Utilities Answer Date Recorded In the past 12 months has th e [employer], gas, oil, or water company threatened to [...] Description 11/22/2025 8:00 AM EDT Consult DiegoSushil [facility] [place] - [facility] [address] [place] [address] Satnam Isaacs MD [address] [place] [address] Health Maintenance Due Date Last [...] 2021 [facility]-Diabetes: Hemoglobin A1C 04/22/2024 01/22/2024, 05/22/2022 [id number] Vaccine ( season) 2025 04/26/2024, 04/29/2023, 05/02/2022, [...] <5.7 % 01/22/2024 7:37 AM EDT [facility] Blood Venous blood specimen / Unknown [...] Adults <6.0% Children and Adolescents <7.5% Source: [place] [employer]. Standards of medical care in diabetes,2017. Diabetes Care.2017:40 (suppl 1):S1-S135. HbA1c assay performed by an ion-exchange chromatography method that is certified traceable to the DCCT. us Katerina Fleming MD LAB BLOOD ORDERABLES Final Resu lt [facility] [address] [place] [address] from Last 3 Months or Most Recently Relevant to Health Maintenance Insurance MEDICARE ANTHEM Advance Directives * Full Code (Latest Code Status on File) Date Activated Date Inactivated Comments 01/22/2024 5:49 AM 01/25/2024 5:02 PM Question Answer Comments Patient has decision-making capacity? Yes Care Teams Earth Sciences Professor Relationship Specialty Start Date End Date Taylor Hernandez PA [address] [place] [address] PCP - General 12/21/20 Jeanine Stewart MD [address] [place] [address] Fellow Endocrinology 05/29/22
== END 2025-08-07 23:59 | disposition home or self-care (01) ==
LOC: RT 09:26
PROVIDERS: PCP Student in an Organized Health Care Education/Training Program; Visit Provider Nurse Practitioner
DX: I11.0 Hypertensive heart disease with heart failure (principal); I50.20 Unspecified systolic (congestive) heart failure; I25.118 Atherosclerotic heart disease of native coronary artery with other forms of angina pectoris
CPT/HCPCS: 93308